=== PATIENT | female | born 1935 | race Caucasian/White ===

== ENCOUNTER 2017-06-30 09:36 | Emergency (ER) | payer MEDICARE ==
[2017-06-30 10:27] VITALS: BP 153/52
--- NOTE | 2017-06-30 10:37 | UC ---
Respiratory Complaint HPI - HPI Summary HPI Summary: Pt c/o nasal congestion, PND and cough X 1 day. Pt is concerned that she has bronchitis. - History of Current Complaint Chief Complaint: UCRespiratory Stated Complaint: SINUS COMPLAINT Time Seen by Provider: 06/30/17 10:17 Hx Obtained From: Patient ?: No Onset/Duration: Sudden Onset, Lasting Days - 1, Still Present Timing: Intermittent Episodes Severity Initially: Mild Severity Currently: Mild Character: Cough: Productive - white Aggravating Factors: Deep Breaths, Recumbent Position Alleviating Factors: Nothing Associated Signs And Symptoms: Positive: URI, Nasal Congestion - Risk Factors Pulmonary Embolism Risk Factors: Negative Cardiac Risk Factors: Negative Pseudomonas Risk Factors: Negative Tuberculosis Risk Factors: Negative - Allergies/Home Medications Allergies/Adverse Reactions: Allergies Allergy/AdvReac Type Severity Reaction Status Date / Time Sulfa Antibiotics Allergy Unknown Verified 06/30/17 10:22 Reaction Details Home Medications: Home Medications Amiodarone HCl 1 - 2 tab PO DAILY 06/30/17 [History Confirmed 06/30/17] PMH/Surg Hx/FS Hx/Imm Hx Previously Healthy: Yes - Surgical History Surgical History: None - Family History Known Family History: Positive: Cardiac Disease - Social History Occupation: Retired Lives: With Family Alcohol Use: None Substance Use Type: None Smoking Status (MU): Former Smoker Length of Time of Smoking/Using Tobacco: 30 yrs Have You Smoked in the Last Year: No When Did the Patient Quit Smoking/Using Tobacco: 30 yrs ago Review of Systems Constitutional: Negative Skin: Negative Eyes: Negative ENT: Other - PND Respiratory: Cough Cardiovascular: Negative Gastrointestinal: Negative Genitourinary: Negative Motor: Negative Neurovascular: Negative Musculoskeletal: Negative Neurological: Negative Psychological: Negative Is Patient Immunocompromised?: No All Other Systems Reviewed And Are Negative: Yes Physical Exam Triage Information Reviewed: Yes Appearance: Well-Appearing Vital Signs: Initial Vital Signs Temp 97.2 F 06/30/17 10:24 Pulse 60 06/30/17 10:24 Resp 20 06/30/17 10:24 BP 153/52 06/30/17 10:24 Pulse Ox 100 06/30/17 10:24 Vital Signs Reviewed: Yes Eye Exam: Normal ENT Exam: Other ENT: Positive: Nasal congestion Dental Exam: Normal Neck exam: Normal Respiratory Exam: Normal Cardiovascular Exam: Normal Cardiovascular: Positive: Bradycardia - on amiodarone Musculoskeletal Exam: Normal Neurological Exam: Normal Psychological Exam: Normal Skin Exam: Normal UC Diagnostic Evaluation - Laboratory O2 Sat by Pulse Oximetry: 100 Respiratory Course/Dx - Differential Dx/Diagnosis Differential Diagnosis/HQI/PQRI: Bronchitis, Other - URI Provider Diagnoses: Bronchitis Discharge - Discharge Plan Condition: Stable Disposition: HOME Prescriptions: Amoxicillin PO (*) [Amoxicillin 500 MG CAP*] 500 mg PO Q12H #20 cap Patient Education Materials: Acute Bronchitis (ED) Referrals: Taj Vargas MD [Primary Care Provider] - If Needed
== END 2017-06-30 10:46 | disposition home or self-care (01) ==
LOC: UCCORT 09:36
DX: J40 Bronchitis, not specified as acute or chronic (principal)
CPT/HCPCS: 99212; G0463

== ENCOUNTER 2017-07-07 20:29 | Emergency (ER) | payer MEDICARE ==
[2017-07-07 20:49] VITALS: BP 156/57
[2017-07-07] MEDS ORDERED: predniSONE TAB* 10 MG PO ONE ×2 (21:19→21:34)
[2017-07-07] MEDS ORDERED: Albuterol HFA INHALER* 8 gm MDI INH ONE (21:20)
--- NOTE | 2017-07-07 21:20 | UC ---
Respiratory Complaint HPI - HPI Summary HPI Summary: 82 yo female currently on amox for sinusitis now coughing hx bronchitis - History of Current Complaint Chief Complaint: UCRespiratory Stated Complaint: CONGESTION/COUGH Time Seen by Provider: 07/07/17 21:12 Hx Obtained From: Patient Onset/Duration: Gradual Onset, Lasting Days Timing: Constant Severity Initially: Mild Severity Currently: Moderate Pain Intensity: 0 Pain Scale Used: 0-10 Numeric Character: Cough: Nonproductive Aggravating Factors: Exertion, Deep Breaths Alleviating Factors: Nothing Associated Signs And Symptoms: Positive: Nasal Congestion, Sinus Discomfort - Allergies/Home Medications Allergies/Adverse Reactions: Allergies Allergy/AdvReac Type Severity Reaction Status Date / Time Codeine Allergy Insomnia Verified 07/07/17 20:42 Sulfa Antibiotics Allergy Unknown Verified 06/30/17 10:22 Reaction Details Home Medications: Home Medications Apixaban* [Eliquis*] 2.5 mg PO DAILY 07/07/17 [History Confirmed 07/07/17] PMH/Surg Hx/FS Hx/Imm Hx Previously Healthy: Yes Endocrine History: Dyslipidemia Cardiovascular History: Hypertension Respiratory History: Bronchitis - Surgical History Surgical History: None - Family History Known Family History: Positive: Cardiac Disease, Hypertension - Social History Alcohol Use: None Substance Use Type: None Smoking Status (MU): Never Smoked Tobacco Length of Time of Smoking/Using Tobacco: 30 yrs Have You Smoked in the Last Year: Yes When Did the Patient Quit Smoking/Using Tobacco: 30 yrs ago - Immunization History Most Recent Influenza Vaccination: no Review of Systems Constitutional: Negative Skin: Negative Eyes: Negative ENT: Nasal Discharge Respiratory: Cough Cardiovascular: Negative Gastrointestinal: Negative Genitourinary: Negative Motor: Negative Neurovascular: Negative Musculoskeletal: Negative Neurological: Negative Psychological: Negative Is Patient Immunocompromised?: No All Other Systems Reviewed And Are Negative: Yes Physical Exam Triage Information Reviewed: Yes Appearance: Well-Appearing, No Pain Distress, Well-Nourished Vital Signs: Initial Vital Signs Temp 98.4 F 07/07/17 20:45 Pulse 67 07/07/17 20:45 Resp 20 07/07/17 20:45 BP 156/57 07/07/17 20:45 Pulse Ox 97 07/07/17 20:45 Vital Signs Reviewed: Yes Eyes: Positive: Conjunctiva Clear ENT: Positive: Nasal congestion, TMs normal, Uvula midline. Negative: Hearing grossly normal, Muffled voice, Hoarse voice, Sinus tenderness Dental Exam: Other - upper plate Neck: Positive: Supple Respiratory: Positive: No respiratory distress, No accessory muscle use, Wheezing - with forced expiration Cardiovascular: Positive: RRR, No Murmur Musculoskeletal: Positive: ROM Intact, No Edema Neurological: Positive: Alert Psychological Exam: Normal UC Diagnostic Evaluation - Laboratory O2 Sat by Pulse Oximetry: 97 - normal/not hypoxic Respiratory Course/Dx - Differential Dx/Diagnosis Provider Diagnoses: acute sinusitis Discharge - Discharge Plan Condition: Stable Disposition: HOME Prescriptions: predniSONE TAB* [Deltasone TAB*] 10 mg PO DAILY #4 tab Patient Education Materials: How to Use a Metered-Dose Inhaler (ED), Acute Bronchitis (ED) Referrals: Taj Vargas MD [Primary Care Provider] - 5 Days (if nto better) Additional Instructions: continue current meds
== END 2017-07-07 21:39 | disposition home or self-care (01) ==
LOC: UCCORT 20:29
DX: J01.90 Acute sinusitis, unspecified (principal); E78.5 Hyperlipidemia, unspecified; I10 Essential (primary) hypertension; Z88.5 Allergy status to narcotic agent; Z88.2 Allergy status to sulfonamides; Z87.891 Personal history of nicotine dependence
CPT/HCPCS: 99212; A9270-GY; G0463; J7512

== ENCOUNTER 2017-09-29 19:18 | Emergency (ER) | payer MEDICARE ==
[2017-09-29 20:16] VITALS: BP 164/68
--- NOTE | 2017-09-29 20:54 | UC ---
Respiratory Complaint HPI - HPI Summary HPI Summary: Pt here w/ nasal congestion, PND and cough x 3 days. Has sinus pressure with pain around eyes - eyes feel tired, no d/c. Denies fever, chills, N/V/D, chest pain, SOB, rash, ab pain, neck stiffness or weakness. Imms are UTD including pneumonia. She is here as she's concerned about her sx being something more serious. Has been around many people coughing at [facility]. - History of Current Complaint Chief Complaint: UCRespiratory Stated Complaint: SINUS COMPLAINT Time Seen by Provider: 09/29/17 20:30 Hx Obtained From: Patient, Family/[employer]oke [employer] - daughter, granddaughter Pain Intensity: 0 - Allergies/Home Medications Allergies/Adverse Reactions: Allergies Allergy/AdvReac Type Severity Reaction Status Date / Time codeine Allergy Insomnia Verified 09/29/17 20:03 Sulfa (Sulfonamide Allergy Unknown Verified 09/29/17 20:03 Antibiotics) Reaction Details Home Medications: Home Medications Acetaminophen [Pain Reliever] 500 mg PO 09/29/17 [History] predniSONE TAB* [Deltasone TAB*] 5 mg PO DAILY 09/29/17 [History Confirmed 09/29] PMH/Surg Hx/FS Hx/Imm Hx Previously Healthy: Yes Cardiovascular History: Hypertension, Atrial Fibrillation - eliquis and amiodorone - Surgical History Surgical History: None - Family History Known Family History: Positive: Cardiac Disease, Hypertension - Social History Occupation: Retired Lives: Alone Alcohol Use: None Substance Use Type: None Smoking Status (MU): Former Smoker Length of Time of Smoking/Using Tobacco: 30 yrs Have You Smoked in the Last Year: Yes When Did the Patient Quit Smoking/Using Tobacco: 30 yrs ago - Immunization History Most Recent Influenza Vaccination: no Review of Systems Constitutional: Fatigue Skin: Negative Eyes: Negative ENT: Sore Throat, Nasal Discharge Respiratory: Cough Cardiovascular: Negative Gastrointestinal: Negative Genitourinary: Negative Motor: Negative Neurovascular: Negative Musculoskeletal: Negative Neurological: Negative Psychological: Anxious - admits she's anxious, most likely triggering her BP to be elevated - denies sx of headache, chest pain, dizziness, SOB Is Patient Immunocompromised?: No All Other Systems Reviewed And Are Negative: Yes Physical Exam Triage Information Reviewed: Yes Appearance: Well-Appearing, No Pain Distress, Well-Nourished Vital Signs: Initial Vital Signs Temp 97.6 F 09/29/17 20:02 Pulse 62 09/29/17 20:02 Resp 18 09/29/17 20:02 BP 164/68 09/29/17 20:02 Pulse Ox 97 09/29/17 20:02 Vital Signs Reviewed: Yes Eye Exam: Normal Eyes: Positive: Conjunctiva Clear ENT Exam: Normal ENT: Positive: Normal ENT inspection, Hearing grossly normal, Pharynx normal - cobblestoning, Nasal drainage - clear, TMs normal. Negative: Nasal congestion, Tonsillar swelling, Tonsillar exudate, Trismus, Muffled voice, Hoarse voice Neck exam: Normal Neck: Positive: Supple, Nontender, No Lymphadenopathy Respiratory Exam: Normal Respiratory: Positive: Lungs clear, Normal breath sounds. Negative: Crackles, Rhonchi, Stridor, Wheezing Cardiovascular Exam: Normal Cardiovascular: Positive: RRR, Other: - S1/S2, NO A. FIB NOTED Abdominal Exam: Normal Abdomen Description: Positive: Nontender, No Organomegaly, Soft Bowel Sounds: Positive: Present Musculoskeletal Exam: Normal Musculoskeletal: Positive: Strength Intact Neurological Exam: Normal Neurological: Positive: Alert Psychological Exam: Normal Skin Exam: Normal UC Diagnostic Evaluation - Laboratory O2 Sat by Pulse Oximetry: 97 Respiratory Course/Dx - Course Course Of Treatment: FLU (-). cxr w/o acute findings. Discussed potential course of illness - explained she does not need anbx or steroids as she appears well clinically, based on vital signs and testing. SHe admits she's nervous and just wants to feel better. Advised to recheck BP - discussed it's most likely elevated tonight 2ndry to anxiety -no sx reported of concern. Pt has cardiology check this week. Reviewed danger s/sx of when to return or go to ED w/ pt, daughter and granddaughter - all agree w/ plan. Pt is laughing and appears relieved as she leaves. - Differential Dx/Diagnosis Provider Diagnoses: Viral URI w/ PND Discharge - Discharge Plan Condition: Stable Disposition: HOME Patient Education Materials: Upper Respiratory Infection (ED), Postnasal Drip ( DC) Referrals: Taj Vargas MD [Primary Care Provider] - Additional Instructions: You may try saline nasal washes, salt water gargles, tea with honey, throat lozenges, humidification and stay hydrate Avoid smoke, candles, aerosals, etc *If symptoms worse, follow-up with PCP or go to ED
--- NOTE | 2017-09-29 21:14 | RAD ---
INDICATION: Cough. History of smoking COMPARISON: None TECHNIQUE: PA and lateral dual-energy views were obtained. FINDINGS: Bones/Soft Tissues: There are no acute bony findings. 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 Lungs: There are no infiltrates. There is mild interstitial prominence which likely reflects chronic change. Pleura: There are no pleural effusions. Other: None IMPRESSION: NO ACTIVE DISEASE
== END 2017-09-29 21:32 | disposition home or self-care (01) ==
LOC: UCCORT 19:18
DX: J06.9 Acute upper respiratory infection, unspecified (principal); R09.82 Postnasal drip
CPT/HCPCS: 71046; 87502; 99211; G0463

== ENCOUNTER 2017-10-25 09:08 | Emergency (ER) | payer MEDICARE ==
--- OUTSIDE RECORDS SUMMARY | 2017-10-25 09:28 | XMS REPORT ---
:1935 External Reference #:[id number] Author Organization [facility] Address [address], [address] [place] [address] Phone [phone] Care Team Providers Name Role Phone Taj Vargas MD Primary Care Physician Unavailable Payers Type Date Identification Numbers Payment Provider Subscriber Medicare Primary Policy Number: [id number] Medicare Cyndi Spears PayID: [id number] [address] [place] [address] [facility] Policy Number: [id number] [facility] Cyndi Spears PayID: [id number] [address] [place] [address] Problems Date Description Provider Status Onset: 10/22/2012 Aneurysm of thoracic aorta Brennon Smith MD, PhD Active Onset: 10/22/2012 Benign essential hypertension Brennon Smith MD, PhD Active Onset: 10/22/2012 Pure hypercholesterolemia Brennon Smith MD, PhD Active Onset: 10/29/2015 Essential hypertension Gayla Negron MD Active Family History Date Family Member(s) Problem(s) Comments General No known family history of CAD. 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 Independent with all ADL's Cigarette Use 1982 Quit 30 years ago Cigarette Use Pack Years - 10 ETOH Use Denies alcohol use Daily Caffeine Consumes on average 2 cups of regular coffee per day Allergies, Adverse Reactions, Alerts Date Description Reaction Status Severity Comments 10/03/2017 Codeine active 10/03/2017 Sulfa Drugs active 10/22/2012 NKDA inactive Medications Medication Date Status Form Strength Qnty SIG Indications Ordering Provider Lisinopril 10/03/ Active Tablets 10mg 90tabs 1 by mouth Gayla 2018 every day MD Jamil Eliquis 03/28/ Active Tablets 2.5mg 180tab 1 tab by Gayla 2016 s mouth MD Jamil twice daily Amiodarone HCL 01/31/ Active Tablets 200mg 180tab 1 to 2 Viktoriya 2016 s tablets by Simonetta mouth Santana, every day MSN, HEALTH ASSISTANT as directed Pravachol / Active Tablets 40mg 90tabs 1 po qd Unknown 0000 Tylenol Extra / Active Tablets 500mg 1-2 tabs Unknown Strength 0000 by mouth every 4 hours as needed Lisinopril 02/08/ Hx Tablets 10mg 90tabs once daily Gayla 2016 - MD Jamil 2016 Lisinopril 02/08/ Hx Tablets 5mg 90tabs 1 by mouth Gayla 2016 - every day MD Jamil 2017 Lisinopril-Hydr 05/16/ Hx Tablets 10-12.5mg 90tabs take 1 Viktoriya ochlorothiazide 2013 tablet by Simonetta mouth once Santana, daily MSN, HEALTH ASSISTANT Carvedilol 10/22/ Hx Tablets 3.125mg 180tab 1 tab by I10 Viktoriya 2012 s mouth Simonetta twice a Santana, MSN, HEALTH ASSISTANT Lisinopril/Hydr / Hx Tablets 10-12.5mg 90tabs 1 po qd Brennon Soriano ochlorothiazide - MD Luis, 05/16/ PhD 2013 Loratadine / Hx Tablets 10mg 1 tab by Unknown Allergy Relief 0000 Dispers mouth every day as needed allergies Amlodipine / Hx Tablets 5mg 1/2 by Unknown Besylate 0000 mouth every day Amiodarone HCL / Hx Tablets 200mg 93tabs 2 tablets Viktoriya 0000 - a day for Simon01/31/ three days Esther, 2016 and then MSN, HEALTH ASSISTANT go back to 1 tablet per day therafter. Metronidazole / Hx Tablets 500mg 1 by mouth Unknown 0000 three times a day Eliquis / Hx Tablets 2.5mg 1 tab by [place] 0000 - mouth MD Jamil twice 2017 daily Furosemide / Hx Tablets 40mg 1 by mouth Unknown 0000 every day If Needed Vital Signs Date Vital Result Comment 10/03/2017 BP Systolic Sitting Left Arm 142 mmHg BP Diastolic Sitting Left Arm 80 mmHg Heart Rate 60 /min Respiratory Rate 16 /min Height 62 inches 5'2" Weight 118.00 lb BMI (Body Mass Index) 21.6 kg/m2 BSA (Body Surface Area) 1.53 m2 [place] body weight in kilograms 50 03/31/2017 BP Systolic Sitting Left Arm 140 mmHg BP Diastolic Sitting Left Arm 64 mmHg Heart Rate 62 /min Respiratory Rate 16 /min Height 62 inches 5'2" Weight 123.00 lb BMI (Body Mass Index) 22.5 kg/m2 BSA (Body Surface Area) 1.55 m2 [place] body weight in kilograms 50 02/08/2017 BP Systolic Sitting Left Arm 187 mmHg BP Diastolic Sitting Left Arm 64 mmHg 01/26/2017 BP Systolic Sitting Left Arm 132 mmHg BP Diastolic Sitting Left Arm 66 mmHg Heart Rate 68 /min Respiratory Rate 16 /min Height 62 inches 5'2" Weight 129.00 lb BMI (Body Mass Index) 23.6 kg/m2 BSA (Body Surface Area) 1.59 m2 [place] body weight in kilograms 50 01/19/2017 BP Systolic Sitting Right Arm 124 mmHg BP Diastolic Sitting Right Arm 58 mmHg Heart Rate 74 /min Respiratory Rate 16 /min Height 62 inches 5'2" Weight 128.00 lb BMI (Body Mass Index) 23.4 kg/m2 BSA (Body Surface Area) 1.58 m2 [place] body weight in kilograms 50 05/03/2016 BP Systolic Sitting Left Arm 140 mmHg BP Diastolic Sitting Left Arm 76 mmHg Heart Rate 64 /min Respiratory Rate 16 /min Height 62 inches 5'2" Weight 129.00 lb BMI (Body Mass Index) 23.6 kg/m2 BSA (Body Surface Area) 1.59 m2 10/29/2015 BP Systolic Sitting Right Arm 152 mmHg BP Diastolic Sitting Right Arm 68 mmHg Heart Rate 66 /min Respiratory Rate 20 /min Height 62 inches 5'2" Weight 130.00 lb BMI (Body Mass Index) 23.8 kg/m2 BSA (Body Surface Area) 1.59 m2 10/20/2014 BP Systolic Sitting Right Arm 130 mmHg BP Diastolic Sitting Right Arm 64 mmHg Heart Rate 18 /min Respiratory Rate 73 /min Height 62 inches 5'2" Weight 129.00 lb BMI (Body Mass Index) 23.6 kg/m2 BSA (Body Surface Area) 1.59 m2 02/17/2014 BP Systolic Sitting Right Arm 136 mmHg BP Diastolic Sitting Right Arm 64 mmHg Heart Rate 60 /min Respiratory Rate 16 /min Height 62 inches 5'2" Weight 131.00 lb BMI (Body Mass Index) 24.0 kg/m2 BSA (Body Surface Area) 1.60 m2 08/19/2013 BP Systolic Sitting Right Arm 130 mmHg BP Diastolic Sitting Right Arm 62 mmHg Heart Rate 60 /min Respiratory Rate 16 /min Height 62 inches 5'2" Weight 130.00 lb BMI (Body Mass Index) 23.8 kg/m2 BSA (Body Surface Area) 1.59 m2 02/15/2013 BP Systolic Sitting Left Arm 138 mmHg BP Diastolic Sitting Left Arm 68 mmHg Heart Rate 60 /min Respiratory Rate 18 /min Height 62 inches 5'2" Weight 131.00 lb BMI (Body Mass Index) 24.0 kg/m2 BSA (Body Surface Area) 1.60 m2 12/11/2012 BP Systolic Sitting Left Arm 162 mmHg BP Diastolic Sitting Left Arm 70 mmHg Heart Rate 60 /min Respiratory Rate 16 /min Height 62 inches 5'2" Weight 130.00 lb BMI (Body Mass Index) 23.8 kg/m2 BSA (Body Surface Area) 1.59 m2 10/22/2012 BP Systolic Sitting Right Arm 186 mmHg BP Diastolic Sitting Right Arm 70 mmHg BP Systolic Sitting Left Arm 180 mmHg BP Diastolic Sitting Left Arm 84 mmHg Heart Rate 77 /min Respiratory Rate 16 /min Height 62 inches 5'2" Weight 133.00 lb BMI (Body Mass Index) 24.3 kg/m2 Results Test Date Test Result H/L Range Note TSH Reflex FT4 And/Or 10/03/2017 Thyroid Stim Hormone 2.30 uIU/mL 0.30- 4.20 1 FT3 Reflex add FT3? Y 1 Reflex add FT4? Y 1 Magnesium 10/03/2017 Magnesium 1.9 mg/dL 1.8-2.4 1 Reflex add FT3? Y 1 Reflex add FT4? Y 1 CBS W/Automated Diff 10/03/2017 White Blood Count 5.4 K/uL 3.1-10.7 1 Red Blood Count 4.33 M/uL 3.90-5.40 1 Hemoglobin 12.9 gm/dL 11.6-15.8 1 Hematocrit 40.1 % 36.0-46.1 1 Mean Cell Volume 92.6 fl 80.9-99.0 1 Mean Corpuscular HGB 29.8 pg 25.9-32.7 1 Mean Corpuscular HGB Conc 32.2 g/dL 30.8-34.3 1 Platelet Count 214 K/uL 155-360 1 Red Cell Distri Width SD 47.3 fl High 3-47 1 Red Cell Distri Width %CV 14.1 % 11.7-14.4 1 Mean Platelet Volume 9.5 fL 8.9-12.4 1 Neut% 52.1 % 40.4-72.8 1 Lymph % 23.3 % 20.0-42.0 1 [place] % 17.6 % High 4.3-13.2 1 Eo% 6.3 % 0.0-6.6 1 Bas% 0.7 % 0.0-1.1 1 Neut# 2.83 K/uL 1.8-7.0 1 Lymph # 1.27 K/uL 1.0-4.0 1 [place] # 0.96 K/uL High 0.3-0.9 1 Eos # 0.34 K/uL 0.0-0.5 1 Baso # 0.04 K/uL 0.0-0.1 1 LDL Cholesterol Profile 10/03/2017 Cholesterol 190 mg/dL <200 1, 2 Triglycerides 180 mg/dL High <150 1, 3 HDL Cholesterol 46 mg/dL >40 1, 4 LDL-Cholesterol 108 mg/dL < 100 1, 5 Reflex add FT3? Y 1 Reflex add FT4? Y 1 Comprehensive Metabolic Panel 10/03/2017 Glucose 101 mg/dL 74-106 1 BUN 25 mg/dL High 7-18 1 Creatinine 1.4 mg/dL High 0.6-1.3 1 Glom Filtration Rate, Estimate 38 mL/min >60 1 If 46 mL/min >60 1, 6 BUN/Creat 17.8 ratio 1 Sodium 139 mmol/L 136-145 1 Potassium 4.7 mmol/L 3.5-5.1 1 Chloride 107 mmol/L 98-107 1 Carbon Dioxide 23 mmol/L 21-32 1 Anion Gap 9 mEq/L 8-16 1 Calcium 9.2 mg/dL 8.5-10.1 1 Total Protein 8.6 g/dL High 6.4-8.2 1 Albumin 3.9 g/dL 3.4-5.0 1 Globulin 4.7 g/dL High 1.9-4.3 1 Alb/Glob 0.8 ratio 1 Bilirubin,Total 0.5 mg/dL 0.2-1.0 1 Sgot/Ast 27 U/L 15-37 1 SGPT/Alt 24 U/L 12-78 1 Alkaline Phosphatase 91 U/L 45-117 1 Reflex add FT3? Y 1 Reflex add FT4? Y 1 MCHC RBC Auto-mCnc 01/09/2017 MCHC RBC Auto-mCnc 32.8 30.8-34.3 MCV RBC Auto 01/09/2017 MCV RBC Auto 92.3 80.9-99.0 Monocytes # Bld Auto 01/09/2017 Monocytes # Bld Auto 0.93 High 0.3-0.9 Monocytes/leuk NFr 01/09/2017 Monocytes/leuk NFr 12.6 4.3-13.2 Bld Auto Bld Auto Neutrophils # Bld 01/09/2017 Neutrophils # Bld 4.86 1.8-7.0 Auto Auto Neutrophils/leuk NFr 01/09/2017 Neutrophils/leuk NFr 65.7 40.4-72.8 Bld Auto Bld Auto PMV Bld Auto 01/09/2017 PMV Bld Auto 9.8 8.9-12.4 Platelets [#/volume] 01/09/2017 Platelets [#/volume] 218 150-400 in Blood by Automated in Blood by count Automated count Potassium SerPl-sCnc 01/09/2017 Potassium SerPl-sCnc 3.9 3.5-5.1 RBC # Bld Auto 01/09/2017 RBC # Bld Auto 3.37 Low 3.90-5.40 RDW RBC Auto 01/09/2017 RDW RBC Auto 43.2 3-47 RDW RBC Auto-Rto 01/09/2017 RDW RBC Auto-Rto 13.4 11.7-14.4 Sodium SerPl-sCnc 01/09/2017 Sodium SerPl-sCnc 141 136-145 Unloinc 01/09/2017 Unloinc See Note 7 WBC # Bld Auto 01/09/2017 WBC # Bld Auto 7.4 3.1-10.7 Laboratory test 01/09/2017 Act Partial Thrombo 78.1 seconds High 23.4- 35.0 8, 9 finding Time Basic Metabolic Panel 01/09/2017 Glucose 130 mg/dL High 74-106 8 BUN 5 mg/dL Low 7-18 8 Creatinine 1.0 mg/dL 0.6-1.3 8 Glom Filtration Rate, Estimate 57 mL/min >60 8 If >60 mL/min >60 8, 10 BUN/Creat 5.0 ratio 8 Sodium 141 mmol/L 136-145 8 Potassium 3.9 mmol/L 3.5-5.1 8 Chloride 107 mmol/L 98-107 8 Carbon Dioxide 27 mmol/L 21-32 8 Anion Gap 7 mEq/L Low 8-16 8 Calcium 8.1 mg/dL Low 8.5-10.1 8 CBS W/Automated Diff 01/09/2017 White Blood Count 7.4 K/uL 3.1-10.7 8 Red Blood Count 3.37 M/uL Low 3.90-5.40 8 Hemoglobin 10.2 gm/dL Low 11.6-15.8 8 Hematocrit 31.1 % Low 36.0-46.1 8 Mean Cell Volume 92.3 fl 80.9-99.0 8 Mean Corpuscular HGB 30.3 pg 25.9-32.7 8 Mean Corpuscular HGB Conc 32.8 g/dL 30.8-34.3 8 Platelet Count 218 K/uL 150-400 8 Red Cell Distri Width SD 43.2 fl 3-47 8 Red Cell Distri Width %CV 13.4 % 11.7-14.4 8 Mean Platelet Volume 9.8 fL 8.9-12.4 8 Neut% 65.7 % 40.4-72.8 8 Lymph % 16.4 % Low 20.0-42.0 8 [place] % 12.6 % 4.3-13.2 8 Eo% 5.0 % 0.0-6.6 8 Bas% 0.3 % 0.0-1.1 8 Neut# 4.86 K/uL 1.8-7.0 8 Lymph # 1.21 K/uL 1.0-4.0 8 [place] # 0.93 K/uL High 0.3-0.9 8 Eos # 0.37 K/uL 0.0-0.5 8 Baso # 0.02 K/uL 0.0-0.1 8 Laboratory test 01/09/2017 Slide Review (SEE NOTE) 8, 11 finding Anion Gap SerPl-sCnc 01/09/2017 Anion Gap SerPl-sCnc 7 Low 8-16 BUN SerPl-mCnc 01/09/2017 BUN SerPl-mCnc 5 7-18 BUN/Creat SerPl 01/09/2017 BUN/Creat SerPl 5.0 Basophils [#/volume] 01/09/2017 Basophils [#/volume] 0.02 0.0-0.1 in Blood by Automated in Blood by count Automated count Basophils/leuk NFr 01/09/2017 Basophils/leuk NFr 0.3 0.0-1.1 Bld Auto Bld Auto Co2 SerPl-sCnc 01/09/2017 Co2 SerPl-sCnc 27 21-32 Calcium SerPl-mCnc 01/09/2017 Calcium SerPl-mCnc 8.1 Low 8.5-10.1 MCH RBC Qn Auto 01/09/2017 MCH RBC Qn Auto 30.3 25.9-32.7 Lymphocytes/leuk NFr 01/09/2017 Lymphocytes/leuk NFr 16.4 Low 20.0-42.0 Bld Auto Bld Auto Lymphocytes 01/09/2017 Lymphocytes 1.21 1.0-4.0 [#/volume] in Blood [#/volume] in Blood by Automated count by Automated count Hgb Bld-mCnc 01/09/2017 Hgb Bld-mCnc 10.2 Low 11.6-15.8 Hct VFr Bld Auto 01/09/2017 Hct VFr Bld Auto 31.1 Low 36.0-46.1 Glucose [Mass/volume] 01/09/2017 Glucose 130 High 74-106 in Serum or Plasma [Mass/volume] in Serum or Plasma GFR/Bsa pred.non 01/09/2017 GFR/Bsa pred.non 57 >60 black SerPl black SerPl MDRD-ArVRat MDRD-ArVRat Chloride SerPl-sCnc 01/09/2017 Chloride SerPl-sCnc 107 98-107 Creat SerPl-mCnc 01/09/2017 Creat SerPl-mCnc 1.0 0.6-1.3 Eosinophil # Bld Auto 01/09/2017 Eosinophil # Bld 0.37 0.0-0.5 Auto Eosinophil/leuk NFr 01/09/2017 Eosinophil/leuk NFr 5.0 0.0-6.6 Bld Auto Bld Auto Laboratory test 01/08/2017 Act Partial Thrombo 85.3 seconds High 23.4- 35.0 8 finding Time Laboratory test 01/08/2017 Act Partial Thrombo 61.3 seconds High 23.4- 35.0 8, 12 finding Time CBS W/Automated Diff 01/08/2017 White Blood Count 8.5 K/uL 3.1-10.7 8 Red Blood Count 2.95 M/uL Low 3.90-5.40 8 Hemoglobin 9.0 gm/dL Low 11.6-15.8 8 Hematocrit 27.7 % Low 36.0-46.1 8 Mean Cell Volume 93.9 fl 80.9-99.0 8 Mean Corpuscular HGB 30.5 pg 25.9-32.7 8 Mean Corpuscular HGB Conc 32.5 g/dL 30.8-34.3 8 Platelet Count 183 K/uL 150-400 8 Red Cell Distri Width SD 44.7 fl 3-47 8 Red Cell Distri Width %CV 13.5 % 11.7-14.4 8 Mean Platelet Volume 10.4 fL 8.9-12.4 8 Neut% 71.5 % 40.4-72.8 8 Lymph % 14.4 % Low 20.0-42.0 8 [place] % 9.4 % 4.3-13.2 8 Eo% 4.5 % 0.0-6.6 8 Bas% 0.2 % 0.0-1.1 8 Neut# 6.05 K/uL 1.8-7.0 8 Lymph # 1.22 K/uL 1.0-4.0 8 [place] # 0.80 K/uL 0.3-0.9 8 Eos # 0.38 K/uL 0.0-0.5 8 Baso # 0.02 K/uL 0.0-0.1 8 Basic Metabolic Panel 01/08/2017 Glucose 101 mg/dL 74-106 8 BUN 4 mg/dL Low 7-18 8 Creatinine 1.0 mg/dL 0.6-1.3 8 Glom Filtration Rate, Estimate 57 mL/min >60 8 If >60 mL/min >60 8, 13 BUN/Creat 4.0 ratio 8 Sodium 145 mmol/L 136-145 8 Potassium 3.8 mmol/L 3.5-5.1 8 Chloride 114 mmol/L High 98-107 8 Carbon Dioxide 25 mmol/L 21-32 8 Anion Gap 6 mEq/L Low 8-16 8 Calcium 8.0 mg/dL Low 8.5-10.1 8 Laboratory test 01/08/2017 Act Partial > 150.0 High 23.4-35.0 8, 14 finding Thrombo Time seconds Laboratory test 01/08/2017 Legionella Negative Negative 8, 15 finding Antigen,Urine Laboratory test 01/07/2017 Act Partial 143.6 seconds High 23.4-35.0 8, 16 finding Thrombo Time CBC 01/07/2017 White Blood Count 11.5 K/uL High 3.1-10.7 8 Red Blood Count 3.30 M/uL Low 3.90-5.40 8 Hemoglobin 10.2 gm/dL Low 11.6-15.8 8 Hematocrit 31.3 % Low 36.0-46.1 8 Mean Cell Volume 94.8 fl 80.9-99.0 8 Mean Corpuscular HGB 30.9 pg 25.9-32.7 8 Mean Corpuscular HGB Conc 32.6 g/dL 30.8-34.3 8 Platelet Count 193 K/uL 150-400 8 Red Cell Distri Width %CV 13.6 % 11.7-14.4 8 Mean Platelet Volume 10.8 fL 8.9-12.4 8 Protime 01/07/2017 Protime 16.3 seconds High 12.0-14.4 8 Inr 1.3 High 0.9-1.1 8, 17 Laboratory test 01/07/2017 Act Partial Thrombo 32.2 seconds 23.4-35.0 8 , 18 finding Time Prothrombin time 01/07/2017 Prothrombin time 16.3 High 12.0-14.4 Aot Request 01/07/2017 Aot Request Test(s) added 8, 19 Tests to be added: pro-BNP 8 * Miscellaneous studies 01/07/2017 * Miscellaneous studies Test(s) added (set) (set) CBC 01/07/2017 White Blood Count 10.1 K/uL 3.1-10.7 8 Red Blood Count 3.30 M/uL Low 3.90-5.40 8 Hemoglobin 10.0 gm/dL Low 11.6-15.8 8 Hematocrit 31.5 % Low 36.0-46.1 8 Mean Cell Volume 95.5 fl 80.9-99.0 8 Mean Corpuscular HGB 30.3 pg 25.9-32.7 8 Mean Corpuscular HGB Conc 31.7 g/dL 30.8-34.3 8 Platelet Count 174 K/uL 150-400 8 Red Cell Distri Width %CV 13.6 % 11.7-14.4 8 Mean Platelet Volume 10.7 fL 8.9-12.4 8 Basic Metabolic Panel 01/07/2017 Glucose 104 mg/dL 74-106 8 BUN 6 mg/dL Low 7-18 8 Creatinine 0.9 mg/dL 0.6-1.3 8 Glom Filtration Rate, Estimate >60 mL/min >60 8 If >60 mL/min >60 8, 20 BUN/Creat 6.6 ratio 8 Sodium 147 mmol/L High 136-145 8 Potassium 3.4 mmol/L Low 3.5-5.1 8 Chloride 118 mmol/L High 98-107 8 Carbon Dioxide 20 mmol/L Low 21-32 8 Anion Gap 9 mEq/L 8-16 8 Calcium 8.8 mg/dL 8.5-10.1 8 Laboratory test finding 01/07/2017 Magnesium 1.9 mg/dL 1.8-2.4 8 Laboratory test finding 01/07/2017 NT-proBNP 6514.0 pg/mL High <450 8 Serum or plasma 01/07/2017 Serum or plasma 6514.0 High <450 natriuretic peptide B natriuretic peptide B prohormone N prohormone N-terminal measurement (mass/volume) CBC 01/06/2017 White Blood Count 12.6 K/uL High 3.1-10.7 8 Red Blood Count 3.15 M/uL Low 3.90-5.40 8 Hemoglobin 9.7 gm/dL Low 11.6-15.8 8 Hematocrit 30.2 % Low 36.0-46.1 8 Mean Cell Volume 95.9 fl 80.9-99.0 8 Mean Corpuscular HGB 30.8 pg 25.9-32.7 8 Mean Corpuscular HGB Conc 32.1 g/dL 30.8-34.3 8 Platelet Count 142 K/uL Low 150-400 8 Red Cell Distri Width %CV 13.5 % 11.7-14.4 8 Mean Platelet Volume 10.5 fL 8.9-12.4 8 Basic Metabolic Panel 01/06/2017 Glucose 94 mg/dL 74-106 8 BUN 12 mg/dL 7-18 8 Creatinine 1.0 mg/dL 0.6-1.3 8 Glom Filtration Rate, Estimate 57 mL/min >60 8 If >60 mL/min >60 8, 21 BUN/Creat 12.0 ratio 8 Sodium 144 mmol/L 136-145 8 Potassium 3.4 mmol/L Low 3.5-5.1 8 Chloride 115 mmol/L High 98-107 8 Carbon Dioxide 20 mmol/L Low 21-32 8 Anion Gap 9 mEq/L 8-16 8 Calcium 7.6 mg/dL Low 8.5-10.1 8 Reflex add FT3? Y 8 Reflex add FT4? Y 8 Magnesium 01/06/2017 Magnesium 1.7 mg/dL Low 1.8-2.4 8 Reflex add FT3? Y 8 Reflex add FT4? Y 8 TSH Reflex FT4 And/Or FT3 01/06/2017 Thyroid Stim Hormone 0.98 uIU/mL 0.30-4.20 8 Reflex add FT3? Y 8 Reflex add FT4? Y 8 TSH SerPl-aCnc 01/06/2017 TSH SerPl-aCnc 0.98 0.30-4.20 Stool Culture 01/06/2017 Stool Culture NO ENTERIC PATHO <SEE NOTE> . ................ <SEE NOTE> 8, 23 Note: INCLUDES TESTING <SEE NOTE> 8, 24 . PLESIOMONAS, CAM <SEE NOTE> 8, 25 . ................ <SEE NOTE> 8, 26 . YERSINIA AND VIB <SEE NOTE> 8, 27 . SHOULD BE REQUES <SEE NOTE> 8, 28 Shiga Toxin 1 Antigen Test not perform <SEE NOTE> 8, 29 Shiga Toxin 2 Antigen Test not perform <SEE NOTE> 8, 30 Stool bacteria 01/06/2017 Stool bacteria Organism: No identification by identification by Enteric Pathogens culture culture Isolated Urobilinogen Ur 01/05/2017 Urobilinogen Ur 0.2 0.2-1.0 Strip-aCnc Strip-aCnc pH Ur Strip.auto 01/05/2017 pH Ur Strip.auto 5.5 Low 6.5-7.5 Lactic Acid 01/05/2017 Lactic Acid 1.9 mmol/L 0.4-1.9 8 Lab Reflex >2.0 for Sepsis? Y 8 Blood Culture 01/05/2017 Blood Culture Aerobic NO GROWTH: FINAL <SEE 8, 31 NOTE> Blood Culture Anaerobic NO GROWTH: FINAL <SEE NOTE> 8, 32 Anaerobic blood 01/05/2017 Anaerobic blood No Growth: Final culture culture Report Bacteria Bld Aerobe 01/05/2017 Bacteria Bld Aerobe No Growth: Final Cult Cult Report Laboratory test 01/05/2017 Troponin-I 0.041 ng/mL 8, 33 finding Laboratory test 01/05/2017 C. Difficile Toxin NEGATIVE FOR C. 8, 34 finding A/B <SEE NOTE> Lactate 01/05/2017 Lactate 1.3 0.4-1.9 [Moles/volume] in [Moles/volume] in Serum or Plasma Serum or Plasma Lactic Acid 01/05/2017 Lactic Acid 1.3 mmol/L 0.4-1.9 8 Lab Reflex >2.0 for Sepsis? Y 8 Lactic Acid 01/05/2017 Lactic Acid 2.5 mmol/L High 0.4-1.9 8 Lab Reflex >2.0 for Sepsis? Y 8 Laboratory test finding 01/05/2017 Troponin-I 0.036 ng/mL 8, 35 Lactic Acid 01/05/2017 Lactic Acid 2.5 mmol/L High 0.4-1.9 8 Lab Reflex >2.0 for Sepsis? Y 8 Ua Routine 01/05/2017 Urine Color YELLOW Yellow 8 Urine Clarity CLEAR Clear 8 Urine Glucose - Dipstick NEGATIVE mg/dL Negative 8 Urine Bilirubin - Dipstick NEGATIVE Negative 8 Urine Ketone NEGATIVE mg/dL Negative 8 Urine Specific [place] <=1.005 Low 1.010-1.030 8 Urine Blood MODERATE Negative 8 Urine PH 5.5 Low 6.5-7.5 8 Urine Protein - Dipstick NEGATIVE mg/dL Negative 8 Urine Urobilinogen - Dipstick 0.2 E.U./dL 0.2-1.0 8 Urine Nitrite - Dipstick NEGATIVE Negative 8 Urine Leuk Esterase MODERATE Negative 8 Urine RBC 2-5 rbc/hpf 0-2 8 Urine WBC 0-2 wbc/hpf 0-7 8 Urine Epithelial Cells FEW /lpf None Seen 8 Urine Uric Acid Crystals FEW None Seen 8 Urine Bacteria VERY FEW None Seen 8 Urine Amorph Sediment VERY FEW Negative 8 Source: URINE, CLEAN CAT <SEE NOTE> 8, 36 Amorphous sediment 01/05/2017 Amorphous sediment Very Few Negative [Presence] in Urine [Presence] in Urine sediment by sediment by Light microscopy Bacteria [Presence] 01/05/2017 Bacteria [Presence] Very Few None Seen in Urine sediment by in Urine sediment Light colby by Light microscopy Bilirub Ur Ql 01/05/2017 Bilirub Ur Ql Negative Negative Strip.auto Strip.auto Color Ur 01/05/2017 Color Ur Yellow Yellow Epithelial cells 01/05/2017 Epithelial cells Few None Seen [Presence] in Urine [Presence] in Urine sediment by L sediment by Light microscopy Ketones Ur 01/05/2017 Ketones Ur Negative Negative Strip.auto-mCnc Strip.auto-mCnc Leukocyte esterase 01/05/2017 Leukocyte esterase Moderate High Negative Ur Ql Strip.auto Ur Ql Strip.auto Urine hemoglobin 01/05/2017 Urine hemoglobin Moderate High Negative detection by detection by automated test strip automated test strip Urine glucose 01/05/2017 Urine glucose Negative Negative measurement by measurement by automated test strip automated test strip (mass/volume) Urine appearance 01/05/2017 Urine appearance Clear Clear determination determination Uric acid crystals 01/05/2017 Uric acid crystals Few None Seen detection in urine detection in urine sediment by sediment by light microscopy Prot Ur 01/05/2017 Prot Ur Negative Negative Strip.auto-mCnc Strip.auto-mCnc Nitrite Ur Ql 01/05/2017 Nitrite Ur Ql Negative Negative Strip.auto Strip.auto Stool Culture 01/04/2017 Stool Culture NO ENTERIC 8, 37 PATHO <SEE NOTE> . ................ <SEE NOTE> 8, 38 Note: INCLUDES TESTING <SEE NOTE> 8, 39 . PLESIOMONAS, CAM <SEE NOTE> 8, 40 . ................ <SEE NOTE> 8, 41 . YERSINIA AND VIB <SEE NOTE> 8, 42 . SHOULD BE REQUES <SEE NOTE> 8, 43 Shiga Toxin 1 Antigen SHIGA TOXIN 1 NO <SEE NOTE> 8, 44 Shiga Toxin 2 Antigen SHIGA TOXIN 2 NO <SEE NOTE> 8, 45 Escherichia coli 01/04/2017 Escherichia coli Shiga Toxin 1 Shiga-like toxin 1 Shiga-like toxin 1 Not Detected detection detection Escherichia coli 01/04/2017 Escherichia coli See Note 46 Shiga-like toxin 2 Shiga-like toxin 2 detection detection Stool leukocytes 01/04/2017 Stool leukocytes None Seen detection by light detection by light microscopy microscopy Stool occult blood 01/04/2017 Stool occult blood Negative Negative Total Cells Counted 01/04/2017 Total Cells Counted 100 Bld Bld Prot SerPl-mCnc 01/04/2017 Prot SerPl-mCnc 7.8 6.4-8.2 Neuts Seg/leuk NFr Bld 01/04/2017 Neuts Seg/leuk NFr Bld 85 High 33-73 Manual Manual Unloinc 01/04/2017 Unloinc Stool Alp SerPl-cCnc 01/04/2017 Alp SerPl-cCnc 70 45-117 Alt SerPl-cCnc 01/04/2017 Alt SerPl-cCnc 15 12-78 Albumin SerPl-mCnc 01/04/2017 Albumin SerPl-mCnc 3.9 3.4-5.0 Albumin/Glob SerPl 01/04/2017 Albumin/Glob SerPl 1.0 Aspartate 01/04/2017 Aspartate 13 Low 15-37 aminotransferase aminotransferase [Enzymatic [Enzymatic activity/vol activity/volume] in Serum or Plasma Bilirub SerPl-mCnc 01/04/2017 Bilirub SerPl-mCnc 0.6 0.2-1.0 Blood anisocytosis 01/04/2017 Blood anisocytosis 1+ detection by light detection by light microscopy microscopy Blood platelet 01/04/2017 Blood platelet Normal adequacy detection by adequacy detection by light microsc light microscopy Eosinophil % 01/04/2017 Eosinophil % 1 0-5 Globulin Ser Calc-mCnc 01/04/2017 Globulin Ser Calc-mCnc 3.9 1.9-4.3 Lipase SerPl-cCnc 01/04/2017 Lipase SerPl-cCnc 350 73-393 Neuts Band/leuk NFr 01/04/2017 Neuts Band/leuk NFr 5 0-8 Bld Manual Bld Manual Monocytes/100 01/04/2017 Monocytes/100 6 0-10 leukocytes in Blood by leukocytes in Blood by Manual count Manual count Lymphocytes/100 01/04/2017 Lymphocytes/100 3 Low 20-42 leukocytes in Blood by leukocytes in Blood by Manual coun Manual count LDL Cholesterol 10/30/2014 Cholesterol 142 mg/dL < 200 47 Profile Triglycerides 156 mg/dL < 150 48 HDL Cholesterol 48 mg/dL > 40 49 LDL-Cholesterol 63 mg/dL < 100 50 Liver Function Tests 10/30/2014 Total Protein 7.5 g/dL 6.4-8.2 Albumin 3.6 g/dL 3.4-5.0 Globulin 3.9 g/dL 1.9-4.3 Alb/Glob 0.9 ratio Bilirubin,Total 0.3 mg/dL 0.2-1.0 Bilirubin,Direct 0.1 mg/dL 0.0-0.2 Bilirubin,Indirect 0.2 mg/dL 0.0-0.9 Sgot/Ast 13 U/L Low 15-37 51 SGPT/Alt 15 U/L 12-78 Alkaline Phosphatase 73 U/L 45-117 Basic Metabolic Panel 10/30/2014 Glucose 93 mg/dL 74-106 BUN 25 mg/dL High 7-18 Creatinine 1.1 mg/dL 0.6-1.3 Glom Filtration Rate, Estimate 51 mL/min >60 If >60 mL/min >60 52 BUN/Creat 22.7 ratio Sodium 141 mmol/L 136-145 Potassium 4.3 mmol/L 3.5-5.1 Chloride 106 mmol/L 98-107 Carbon Dioxide 29 mmol/L 21-32 Anion Gap 6 mEq/L Low 8-16 Calcium 9.4 mg/dL 8.5-10.1 CBC W/Automated Diff 10/30/2014 White Blood Count 7.2 K/uL 3.1-10.7 Red Blood Count 3.79 M/uL Low 3.90-5.40 Hemoglobin 11.6 gm/dL 11.6-15.8 Hematocrit 36.6 % 36.0-46.1 Mean Cell Volume 96.6 fl 80.9-99.0 Mean Corpuscular HGB 30.6 pg 25.9-32.7 Mean Corpuscular HGB Conc 31.7 g/dL 30.8-34.3 Platelet Count 286 K/uL 155-360 Red Cell Distri Width SD 44.5 fl 3-47 Red Cell Distri Width %CV 13.1 % 11.7-14.4 Mean Platelet Volume 9.3 fL 8.9-12.4 Neut% 67.0 % 40.4-72.8 Lymph % 17.8 % 17.0-46.1 [place] % 10.9 % 4.3-13.2 Eo% 3.9 % 0.0-6.6 Bas% 0.4 % 0.0-1.1 Neut# 4.79 K/uL 1.0-7.0 Lymph # 1.27 K/uL Low 1.8-7.0 [place] # 0.78 K/uL 0.3-0.9 Eos # 0.28 K/uL 0.0-0.5 Baso # 0.03 K/uL 0.0-0.1 Laboratory test finding 10/30/2014 Thyroid Stim 1.34 uIU/mL 0.36-3.74 Hormone Laboratory test finding 08/13/2013 Microalbumin,Random 20.2 mg/L High 0.0- 18.5 Urine Comprehensive Metabolic 08/13/2013 Glucose 104 mg/dL 76-115 Panel BUN 20 mg/dL 5-23 Creatinine 1.1 mg/dL 0.5-1.4 Glom Filtration Rate, Estimate 51 mL/min >60 If >60 mL/min >60 53 BUN/Creat 18.1 ratio Sodium 138 mmol/L 136-145 Potassium 4.1 mmol/L 3.5-5.1 Chloride 105 mmol/L 98-107 Carbon Dioxide 29 mEq/L 18-29 Anion Gap 8 mEq/L 8-16 Calcium 9.6 mg/dL 8.5-10.1 Total Protein 7.8 g/dL 6.3-8.0 Albumin 3.9 g/dL 3.5-5.0 Globulin 3.9 g/dL 1.9-4.3 Alb/Glob 1.0 ratio Bilirubin,Total 0.4 mg/dL 0.2-1.2 Sgot/Ast 6 U/L Low 16-40 SGPT/Alt 14 U/L Low 30-65 Alkaline Phosphatase 85 U/L 50-136 LDL Cholesterol Profile 08/13/2013 Cholesterol 167 mg/dL 120-200 Triglycerides 123 mg/dL 16-231 HDL Cholesterol 57 mg/dL 29-83 LDL-Cholesterol 85 mg/dL 62-185 Laboratory test 08/13/2013 C-Reactive 17.20 mg/L High 0.00-3.00 54 finding Protein,Cardiac CBC 08/13/2013 White Blood Count 7.1 K/uL 3.1-10.7 Red Blood Count 3.99 M/uL 3.90-5.40 Hemoglobin 11.9 gm/dL 11.6-15.8 Hematocrit 37.6 % 36.0-46.1 Mean Cell Volume 94.2 fl 80.9-99.0 Mean Corpuscular HGB 29.8 pg 25.9-32.7 Mean Corpuscular HGB Conc 31.6 g/dL 30.8-34.3 Platelet Count 271 K/uL 155-360 Red Cell Distri Width %CV 13.7 % 11.7-14.4 Mean Platelet Volume 10.1 fL 8.9-12.4 Liver Function Tests 10/29/2012 Total Protein 8.2 g/dL High 6.3-8.0 Albumin 4.0 g/dL 3.5-5.0 Globulin 4.2 g/dL 1.9-4.3 Alb/Glob 1.0 ratio Bilirubin,Total 0.4 mg/dL 0.2-1.2 Bilirubin,Direct < 0.1 mg/dL Low 0.1-0.4 Bilirubin,Indirect 0.3 mg/dL 0.0-0.9 Sgot/Ast 10 U/L Low 16-40 SGPT/Alt 12 U/L Low 30-65 Alkaline Phosphatase 82 U/L 50-136 LDL Cholesterol Profile 10/29/2012 Cholesterol 175 mg/dL 120-200 Triglycerides 187 mg/dL 16-231 HDL Cholesterol 44 mg/dL 29-83 LDL-Cholesterol 94 mg/dL 62-185 1 I48.0 2 Reference Guidelines*: Desirable: ........... < 200 mg/dL Borderline High: ..... 200-239 mg/dL High: ................ >=240 mg/dL * The National Cholesterol Education Program (NCEP) 3 Reference Guidelines*: Normal: ............. < 150 mg/dL Borderline High: .... 150-199 mg/dL High: ............... 200-499 mg/dL Very High: .......... > 500 mg/dL * Source: National Cholesterol Education Program (NCEP) 4 Reference Guidelines*: Low HDL: ..... < 40 mg/dL Normal: ..... 40-60 mg/dL Desirable: ... > 60 mg/dL *The National Cholesterol Education Program(NCEP) 5 Reference Guidelines*: Optimal:........... <100 mg/dL Near Optimal....... 100-129 mg/dL Borderline High.... 130-159 mg/dL High............... 160-189 mg/dL Very High.......... >=190 mg/dL * Source: National Cholesterol Education Program (NCEP) 6 Note: Persistent reduction for 3 months or more in an eGFR <60 mL/min/1.73 m2 defines CKD. Patients with eGFR values >/=60 mL/min/1.73 m2 may also have CKD if evidence of persistent proteinuria is present. The original MDRD equation for estimated GFR is not valid for patients less than 18 years of age. Additional information may be found at [email or web address]. 7 Instrument flagged sample for slide review. Less than 10% Bands seen, no other immature WBC's seen. RBC morphology essentially normal. Platelet estimate= Normal 8 ACUTE COLITIS 9 Is patient on heparin protocol? Y Is patient on anticoagulants? Heparin 10 Note: Persistent reduction for 3 months or more in an eGFR <60 mL/min/1.73 m2 defines CKD. Patients with eGFR values >/=60 mL/min/1.73 m2 may also have CKD if evidence of persistent proteinuria is present. The original MDRD equation for estimated GFR is not valid for patients less than 18 years of age. Additional information may be found at [email or web address]. 11 Instrument flagged sample for slide review. Less than 10% Bands seen, no other immature WBC's seen. RBC morphology essentially normal. Platelet estimate=Normal 12 Is patient on heparin protocol? Y Is patient on anticoagulants? Heparin 13 Note: Persistent reduction for 3 months or more in an eGFR <60 mL/min/1.73 m2 defines CKD. Patients with eGFR values >/=60 mL/min/1.73 m2 may also have CKD if evidence of persistent proteinuria is present. The original MDRD equation for estimated GFR is not valid for patients less than 18 years of age. Additional information may be found at [email or web address]. 14 CHECKED CALLED APTT TO DANIE Nguyen RN AT [phone] 01/08/17 by [email or web address] Is patient on heparin protocol? Y OK To Combine Draws Per RN 15 Presumptive negative for L. pneumophila serogroup 1 antigen in urine, suggesting no recent or current infection. Legionnaires' disease cannot be ruled out since other serogroups and species may also cause disease. Performed at: [address] [id number] Outpatient Coding Specialist: Paramjit Billy MD, Phone: [phone] 16 Is patient on heparin protocol? Y Is patient on anticoagulants? Heparin CALLED PTT TO NAYA Stoll AT 0026 01/08/17 by [email or web address] 17 THERAPEUTIC INR RANGE: 2.0 - 3.0 DVT, Pulmonary embolus, prophylaxis against venous thrombosis or systemic embolization in high risk patients. 2.5 - 3.5 Mechanical heart valves 18 Is patient on heparin protocol? Y Is patient on anticoagulants? Heparin 19 Tests: pro-BNP Instructions: 20 Note: Persistent reduction for 3 months or more in an eGFR <60 mL/min/1.73 m2 defines CKD. Patients with eGFR values >/=60 mL/min/1.73 m2 may also have CKD if evidence of persistent proteinuria is present. The original MDRD equation for estimated GFR is not valid for patients less than 18 years of age. Additional information may be found at [email or web address]. 21 Note: Persistent reduction for 3 months or more in an eGFR <60 mL/min/1.73 m2 defines CKD. Patients with eGFR values >/=60 mL/min/1.73 m2 may also have CKD if evidence of persistent proteinuria is present. The original MDRD equation for estimated GFR is not valid for patients less than 18 years of age. Additional information may be found at [email or web address]. 22 NO ENTERIC PATHOGENS ISOLATED 23 ................................................... 24 INCLUDES TESTING FOR SALMONELLA, SHIGELLA, AEROMONAS, 25 PLESIOMONAS, CAMPYLOBACTER, AND E. COLI 0157:H7 26 ................................................... 27 YERSINIA AND VIBRIO ARE NOT ROUTINELY SCREENED FOR AND 28 SHOULD BE REQUESTED SEPARATELY SCANT ENTERIC LJ 29 Test not performed INSUFFICENT GROWTH TO PERFORM TESTING 30 Test not performed INSUFFICENT GROWTH TO PERFORM TESTING 31 NO GROWTH: FINAL REPORT 32 NO GROWTH: FINAL REPORT 33 0.0 - 0.045 ng/mL: Normal 0.046 - 0.5 ng/mL: Suggestive 0.6 - 1.5 ng/mL: Consistent 34 NEGATIVE FOR C. DIFFICILE TOXIN A/B. Method: Alere Tox A/B Quik Chek Rapid Immunoassay CORRELATE RESULTS WITH CLINICAL CONDITION. 35 0.0 - 0.045 ng/mL: Normal 0.046 - 0.5 ng/mL: Suggestive 0.6 - 1.5 ng/mL: Consistent 36 URINE, CLEAN CATCH 37 NO ENTERIC PATHOGENS ISOLATED 38 ................................................... 39 INCLUDES TESTING FOR SALMONELLA, SHIGELLA, AEROMONAS, 40 PLESIOMONAS, CAMPYLOBACTER, AND E. COLI 0157:H7 41 ................................................... 42 YERSINIA AND VIBRIO ARE NOT ROUTINELY SCREENED FOR AND 43 SHOULD BE REQUESTED SEPARATELY 44 SHIGA TOXIN 1 NOT DETECTED 45 SHIGA TOXIN 2 NOT DETECTED Method: ImmunoCard STAT/EHEC Rapid Immunochromatographic Assay 46 Shiga Toxin 2 Not Detected Method: ImmunoCard Stat/Ehec Rapid Immunochromatographic Assay 47 Reference Guidelines*: Desirable: ........... < 200 mg/dL Borderline High: ..... 200-239 mg/dL High: ................ >=240 mg/dL * The National Cholesterol Education Program (NCEP) 48 Reference Guidelines*: Normal: ............. < 150 mg/dL Borderline High: .... 150-199 mg/dL High: ............... 200-499 mg/dL Very High: .......... > 500 mg/dL * Source: National Cholesterol Education Program (NCEP) 49 Reference Guidelines*: Low HDL: ..... < 40 mg/dL Normal: ..... 40-60 mg/dL Desirable: ... > 60 mg/dL *The National Cholesterol Education Program(NCEP) 50 Reference Guidelines*: Optimal:........... <100 mg/dL Near Optimal....... 100-129 mg/dL Borderline High.... 130-159 mg/dL High............... 160-189 mg/dL Very High.......... >=190 mg/dL * Source: National Cholesterol Education Program (NCEP) 51 Values below the stated reference ranges of AST and ALT can be seen in normal populations. Clinical correlation is suggested. 52 Note: Persistent reduction for 3 months or more in an eGFR <60 mL/min/1.73 m2 defines CKD. Patients with eGFR values >/=60 mL/min/1.73 m2 may also have CKD if evidence of persistent proteinuria is present. The original MDRD equation for estimated GFR is not valid for patients less than 18 years of age. Additional information may be found at [email or web address]. 53 Note: Persistent reduction for 3 months or more in an eGFR <60 mL/min/1.73 m2 defines CKD. Patients with eGFR values >/=60 mL/min/1.73 m2 may also have CKD if evidence of persistent proteinuria is present. The original MDRD equation for estimated GFR is not valid for patients less than 18 years of age. Additional information may be found at [email or web address]. 54 Relative Risk for Future Cardiovascular Event Low <1.00 Average 1.00 - 3.00 High >3.00 Procedures Date CPT Code Description Status 10/03/2017 32069 EKG-Tracing And Report Completed 03/31/2017 64829 EKG-Tracing And Report Completed 01/26/2017 38609 EKG-Tracing And Report Completed 01/19/2017 44269 EKG-Tracing And Report Completed 01/08/2017 14141 EKG Interpretation And Report Only Completed 01/07/2017 38265 EKG Interpretation And Report Only Completed 01/05/2017 56078 Echocardiogram Complete Completed 01/04/2017 89710 EKG Interpretation And Report Only Completed 10/29/2015 74955 EKG-Tracing And Report Completed 10/20/2014 41959 EKG-Tracing And Report Completed 10/22/2012 13041 EKG-Tracing And Report Completed 07/22/2012 99126 Echocardiogram Complete Completed Encounters Type Date Location Provider CPT E/M Dx Office Visit 10/03/2017 9:30a [place] [address] I48.0 I71.2 I10 R63.3 Office Visit 03/31/2017 9:40a Cardiology Office KELLE Whitley 44233 I48.0 I71.2 I10 E78.2 Office Visit 02/08/2017 1:40p [place] [address] Z01.30 Office Visit 01/26/2017 10:00a [place] [address] I48.0 Z79.01 I71.2 I10 Office Visit 01/19/2017 3:00p [place] [address] I48.91 Office Visit 01/05/2017 2:28p [place] [address] I48.91 Office Visit 05/03/2016 9:40a Cardiology [place] ANP [address]408 I10 I71.2 E78.2 Office Visit 10/29/2015 10:00a [place] [address] I10 I71.2 Office Visit 10/20/2014 1:30p Cardiology Office Ana Rosa Colon [place], ANP 567[address] 441.2 401.1 272.0 Office Visit 02/17/2014 10:40a Cardiology [place] [address] 441.2 401.1 272.0 Office Visit 08/19/2013 10:40a [place]iology [place] [address] 441.2 401.1 272.0 Office Visit 02/15/2013 9:40a [place] [address] 441.2 401.1 272.0 Office Visit 12/11/2012 11:00a [place]iology [place] [address] 441.2 401.1 272.0 Office Visit 10/22/2012 10:00a Cardiology [place] [address] 441.2 401.1 272.0 Office Visit 07/23/2012 1:45p [place]iology [place] [address] 441.2 Plan of Care Future Appointment(s):01/03/2018 10:15 am - Gayla Negron MD at [facility]10/03/2017 - Gayla Negron MDI48.0 Paroxysmal atrial fibrillationComments: Well controlled with Amiodarone. Denies side effects. Will need safety labs. Anticoagulated with Eliquis. Refill [id number] Thoracic aortic aneurysm, without ruptureComments:4.4 cm on last Echo. Declined follow ups and any possible intervention. Needs better BP control.I10 Essential (primary) hypertensionComments:Suboptimal. Repeated BP 152 mmHg systolic. Will increase Lisinopril to 10 mg [id number] Feeding difficultiesComments:Encouraged to revisit dentistAllNew Medication:Lisinopril 10 mgFollow up:3 months
--- OUTSIDE RECORDS SUMMARY | 2017-10-25 09:28 | XMS REPORT ---
:1935 External Reference #:[id number] Author Organization [facility] Address [address] [place] [address] Phone [phone] Care Team Providers Name Role Phone Taj Vargas MD Primary Care Physician Unavailable Payers Type Date Identification Numbers Payment Provider Subscriber Medicare Primary Policy Number: [id number] Medicare Cyndi Spears PayID: [id number] [address] [place] [address] [facility] Policy Number: [id number] [facility] Cyndi Spears PayID: [id number] [address] [place] [address] Problems Date Description Provider Status Onset: 10/22/2012 [...] Form Strength Qnty SIG Indications Ordering Provider Reggie 03/28/ Active Tablets 2.5mg 180tab 1 tab by Gayla Negron MD twice daily Lisinopril 02/08/ Active Tablets 5mg 90tabs 1 by mouth Gayla 2016 every day MD Jamil Amiodarone HCL 01/31/ Active Tablets 200mg 180tab 1 to 2 Viktoriya 2016 s tablets by Simonetta mouth Santana, every day MSN, [employer] as directed Pravachol / Active Tablets 40mg 90tabs 1 po qd Unknown 0000 Tylenol Extra / Active Tablets 500mg 1-2 tabs Unknown Strength 0000 by mouth every 4 hours as needed Lisinopril 02/08/ Hx Tablets 10mg 90tabs once daily Gayla 2016 - MD Jamil 2016 Lisinopril-Hydr 05/16/ Hx Tablets 10-12.5mg 90tabs take 1 Viktoriya ochlorothiazide 2013 tablet by Simonetta mouth once Santana, daily MSN, [employer] Carvedilol 10/22/ Hx Tablets 3.125mg 180tab 1 tab by I10 Viktoriya 2012 s mouth Jp twice a Santana, day MSN, [employer] Lisinopril/Hydr / Hx Tablets 10-12.5mg 90tabs 1 po qd Brennon Soriano ochlorothiazide 0000 - MD Luis, PhD 2013 Loratadine / Hx Tablets 10mg 1 tab by Unknown Allergy Relief 0000 Dispers mouth every day as needed allergies Amlodipine / Hx Tablets 5mg 1/2 by Unknown Besylate 0000 mouth every day Amiodarone HCL / Hx Tablets 200mg 93tabs 2 tablets Viktoriya 0000 - a day for Jp 01/31/ three days Esther2016 and then MSN, [employer] go back to 1 tablet per day therafter. Metronidazole 00/ Hx Tablets 500mg 1 by mouth Unknown 0000 three times a day Eliquis / Hx Tablets 2.5mg 1 tab by Tropic 0000 - mouth MD Jamil 03/28/ twice 2017 daily Furosemide / Hx Tablets [...] kg/m2 BSA (Body Surface Area) 1.53 m2 [place] body weight in kilograms 50 03/31/2017 BP Systolic Sitting Left Arm 140 mmHg BP Diastolic Sitting Left Arm 64 mmHg Heart Rate 62 /min Respiratory Rate 16 /min Height 62 inches 5'2" Weight 123.00 lb BMI (Body Mass Index) 22.5 kg/m2 BSA (Body Surface Area) 1.55 m2 [place] body weight in kilograms 50 02/08/2017 BP Systolic Sitting Left Arm 187 mmHg BP Diastolic Sitting Left Arm 64 mmHg 01/26/2017 BP Systolic Sitting Left Arm 132 mmHg BP Diastolic Sitting Left Arm 66 mmHg Heart Rate 68 /min Respiratory Rate 16 /min Height 62 inches 5'2" Weight 129.00 lb BMI (Body Mass Index) 23.6 kg/m2 BSA (Body Surface Area) 1.59 m2 [place] body weight in kilograms 50 01/19/2017 BP Systolic Sitting Right Arm 124 mmHg BP Diastolic Sitting Right Arm 58 mmHg Heart Rate 74 /min Respiratory Rate 16 /min Height 62 inches 5'2" Weight 128.00 lb BMI (Body Mass Index) 23.4 kg/m2 BSA (Body Surface Area) 1.58 m2 [place] body weight in kilograms 50 05/03/2016 BP [...] Test Date Test Result H/L Range Note MCV RBC Auto 01/09/2017 MCV RBC Auto [...] 141 136-145 Unloinc 01/09/2017 Unloinc See Note 1 WBC # Bld Auto 01/09/2017 WBC # Bld Auto 7.4 3.1-10.7 Laboratory test 01/09/2017 Act Partial Thrombo 78.1 seconds High 23.4- 35.0 2, 3 finding Time Basic Metabolic Panel 01/09/2017 Glucose 130 mg/dL High 74-106 2 BUN 5 mg/dL Low 7-18 2 Creatinine 1.0 mg/dL 0.6-1.3 2 Glom Filtration Rate, Estimate 57 mL/min >60 2 If >60 mL/min >60 2, 4 BUN/Creat 5.0 ratio 2 Sodium 141 mmol/L 136-145 2 Potassium 3.9 mmol/L 3.5-5.1 2 Chloride 107 mmol/L 98-107 2 Carbon Dioxide 27 mmol/L 21-32 2 Anion Gap 7 mEq/L Low 8-16 2 Calcium 8.1 mg/dL Low 8.5-10.1 2 CBS W/Automated Diff 01/09/2017 White Blood Count 7.4 K/uL 3.1-10.7 2 Red Blood Count 3.37 M/uL Low 3.90-5.40 2 Hemoglobin 10.2 gm/dL Low 11.6-15.8 2 Hematocrit 31.1 % Low 36.0-46.1 2 Mean Cell Volume 92.3 fl 80.9-99.0 2 Mean Corpuscular HGB 30.3 pg 25.9-32.7 2 Mean Corpuscular HGB Conc 32.8 g/dL 30.8-34.3 2 Platelet Count 218 K/uL 150-400 2 Red Cell Distri Width SD 43.2 fl 3-47 2 Red Cell Distri Width %CV 13.4 % 11.7-14.4 2 Mean Platelet Volume 9.8 fL 8.9-12.4 2 Neut% 65.7 % 40.4-72.8 2 Lymph % 16.4 % Low 20.0-42.0 2 [place] % 12.6 % 4.3-13.2 2 Eo% 5.0 % 0.0-6.6 2 Bas% 0.3 % 0.0-1.1 2 Neut# 4.86 K/uL 1.8-7.0 2 Lymph # 1.21 K/uL 1.0-4.0 2 [place] # 0.93 K/uL High 0.3-0.9 2 Eos # 0.37 K/uL 0.0-0.5 2 Baso # 0.02 K/uL 0.0-0.1 2 Laboratory test 01/09/2017 Slide Review (SEE NOTE) 2, 5 finding Anion Gap SerPl-sCnc 01/09/2017 Anion Gap SerPl-sCnc 7 Low 8-16 BUN SerPl-mCnc 01/09/2017 BUN SerPl-mCnc 5 7-18 BUN/Creat SerPl 01/09/2017 BUN/Creat SerPl 5.0 Basophils [#/volume] 01/09/2017 Basophils [#/volume] 0.02 0.0-0.1 in Blood by Automated in Blood by Automated count count Basophils/leuk NFr 01/09/2017 Basophils/leuk NFr 0.3 0.0-1.1 Bld Auto Bld Auto Co2 SerPl-sCnc 01/09/2017 Co2 SerPl-sCnc 27 21-32 Calcium SerPl-mCnc 01/09/2017 Calcium SerPl-mCnc 8.1 Low 8.5-10.1 Chloride SerPl-sCnc 01/09/2017 Chloride SerPl-sCnc 107 98-107 Creat SerPl-mCnc 01/09/2017 Creat SerPl-mCnc 1.0 0.6-1.3 Eosinophil # Bld Auto 01/09/2017 Eosinophil # Bld Auto 0.37 0.0-0.5 Eosinophil/leuk NFr 01/09/2017 Eosinophil/leuk NFr 5.0 0.0-6.6 Bld Auto Bld Auto GFR/Bsa pred.non 01/09/2017 GFR/Bsa pred.non 57 >60 black SerPl black SerPl MDRD-ArVRat MDRD-ArVRat Glucose [Mass/volume] 01/09/2017 Glucose [Mass/volume] 130 High 74-106 in Serum or Plasma in Serum or Plasma Hct VFr Bld Auto 01/09/2017 Hct VFr Bld Auto 31.1 Low 36.0-46.1 Hgb Bld-mCnc 01/09/2017 Hgb Bld-mCnc 10.2 Low 11.6-15.8 Lymphocytes 01/09/2017 Lymphocytes 1.21 1.0-4.0 [#/volume] in Blood [#/volume] in Blood by Automated count by Automated count Lymphocytes/leuk NFr 01/09/2017 Lymphocytes/leuk NFr 16.4 Low 20.0-42.0 Bld Auto Bld Auto MCH RBC Qn Auto 01/09/2017 MCH RBC Qn Auto 30.3 25.9-32.7 MCHC RBC Auto-mCnc 01/09/2017 MCHC RBC Auto-mCnc 32.8 30.8-34.3 Laboratory test 01/08/2017 Act Partial Thrombo 85.3 seconds High 23.4- 35.0 2 finding Time Laboratory test 01/08/2017 Act Partial Thrombo 61.3 seconds High 23.4- 35.0 2, 6 finding Time CBS W/Automated Diff 01/08/2017 White Blood Count 8.5 K/uL 3.1-10.7 2 Red Blood Count 2.95 M/uL Low 3.90-5.40 2 Hemoglobin 9.0 gm/dL Low 11.6-15.8 2 Hematocrit 27.7 % Low 36.0-46.1 2 Mean Cell Volume 93.9 fl 80.9-99.0 2 Mean Corpuscular HGB 30.5 pg 25.9-32.7 2 Mean Corpuscular HGB Conc 32.5 g/dL 30.8-34.3 2 Platelet Count 183 K/uL 150-400 2 Red Cell Distri Width SD 44.7 fl 3-47 2 Red Cell Distri Width %CV 13.5 % 11.7-14.4 2 Mean Platelet Volume 10.4 fL 8.9-12.4 2 Neut% 71.5 % 40.4-72.8 2 Lymph % 14.4 % Low 20.0-42.0 2 [place] % 9.4 % 4.3-13.2 2 Eo% 4.5 % 0.0-6.6 2 Bas% 0.2 % 0.0-1.1 2 Neut# 6.05 K/uL 1.8-7.0 2 Lymph # 1.22 K/uL 1.0-4.0 2 [place] # 0.80 K/uL 0.3-0.9 2 Eos # 0.38 K/uL 0.0-0.5 2 Baso # 0.02 K/uL 0.0-0.1 2 Basic Metabolic Panel 01/08/2017 Glucose 101 mg/dL 74-106 2 BUN 4 mg/dL Low 7-18 2 Creatinine 1.0 mg/dL 0.6-1.3 2 Glom Filtration Rate, Estimate 57 mL/min >60 2 If >60 mL/min >60 2, 7 BUN/Creat 4.0 ratio 2 Sodium 145 mmol/L 136-145 2 Potassium 3.8 mmol/L 3.5-5.1 2 Chloride 114 mmol/L High 98-107 2 Carbon Dioxide 25 mmol/L 21-32 2 Anion Gap 6 mEq/L Low 8-16 2 Calcium 8.0 mg/dL Low 8.5-10.1 2 Laboratory test 01/08/2017 Act Partial > 150.0 High 23.4-35.0 2, 8 finding Thrombo Time seconds Laboratory test 01/08/2017 Legionella Negative Negative 2, 9 finding Antigen,Urine Laboratory test 01/07/2017 Act Partial 143.6 seconds High 23.4-35.0 2, 10 finding Thrombo Time CBC 01/07/2017 White Blood Count 11.5 K/uL High 3.1-10.7 2 Red Blood Count 3.30 M/uL Low 3.90-5.40 2 Hemoglobin 10.2 gm/dL Low 11.6-15.8 2 Hematocrit 31.3 % Low 36.0-46.1 2 Mean Cell Volume 94.8 fl 80.9-99.0 2 Mean Corpuscular HGB 30.9 pg 25.9-32.7 2 Mean Corpuscular HGB Conc 32.6 g/dL 30.8-34.3 2 Platelet Count 193 K/uL 150-400 2 Red Cell Distri Width %CV 13.6 % 11.7-14.4 2 Mean Platelet Volume 10.8 fL 8.9-12.4 2 Protime 01/07/2017 Protime 16.3 seconds High 12.0-14.4 2 Inr 1.3 High 0.9-1.1 2, 11 Laboratory test 01/07/2017 Act Partial Thrombo 32.2 seconds 23.4-35.0 2 , 12 finding Time Prothrombin time 01/07/2017 Prothrombin time 16.3 High 12.0-14.4 Aot Request 01/07/2017 Aot Request Test(s) added 2, 13 Tests to be added: pro-BNP 2 * Miscellaneous studies 01/07/2017 * Miscellaneous studies Test(s) added (set) (set) CBC 01/07/2017 White Blood Count 10.1 K/uL 3.1-10.7 2 Red Blood Count 3.30 M/uL Low 3.90-5.40 2 Hemoglobin 10.0 gm/dL Low 11.6-15.8 2 Hematocrit 31.5 % Low 36.0-46.1 2 Mean Cell Volume 95.5 fl 80.9-99.0 2 Mean Corpuscular HGB 30.3 pg 25.9-32.7 2 Mean Corpuscular HGB Conc 31.7 g/dL 30.8-34.3 2 Platelet Count 174 K/uL 150-400 2 Red Cell Distri Width %CV 13.6 % 11.7-14.4 2 Mean Platelet Volume 10.7 fL 8.9-12.4 2 Basic Metabolic Panel 01/07/2017 Glucose 104 mg/dL 74-106 2 BUN 6 mg/dL Low 7-18 2 Creatinine 0.9 mg/dL 0.6-1.3 2 Glom Filtration Rate, Estimate >60 mL/min >60 2 If >60 mL/min >60 2, 14 BUN/Creat 6.6 ratio 2 Sodium 147 mmol/L High 136-145 2 Potassium 3.4 mmol/L Low 3.5-5.1 2 Chloride 118 mmol/L High 98-107 2 Carbon Dioxide 20 mmol/L Low 21-32 2 Anion Gap 9 mEq/L 8-16 2 Calcium 8.8 mg/dL 8.5-10.1 2 Laboratory test finding 01/07/2017 Magnesium 1.9 mg/dL 1.8-2.4 2 Laboratory test finding 01/07/2017 NT-proBNP 6514.0 pg/mL High <450 2 Serum or plasma 01/07/2017 Serum or plasma 6514.0 High <450 natriuretic peptide B natriuretic peptide B prohormone N prohormone N-terminal measurement (mass/volume) CBC 01/06/2017 White Blood Count 12.6 K/uL High 3.1-10.7 2 Red Blood Count 3.15 M/uL Low 3.90-5.40 2 Hemoglobin 9.7 gm/dL Low 11.6-15.8 2 Hematocrit 30.2 % Low 36.0-46.1 2 Mean Cell Volume 95.9 fl 80.9-99.0 2 Mean Corpuscular HGB 30.8 pg 25.9-32.7 2 Mean Corpuscular HGB Conc 32.1 g/dL 30.8-34.3 2 Platelet Count 142 K/uL Low 150-400 2 Red Cell Distri Width %CV 13.5 % 11.7-14.4 2 Mean Platelet Volume 10.5 fL 8.9-12.4 2 Basic Metabolic Panel 01/06/2017 Glucose 94 mg/dL 74-106 2 BUN 12 mg/dL 7-18 2 Creatinine 1.0 mg/dL 0.6-1.3 2 Glom Filtration Rate, Estimate 57 mL/min >60 2 If >60 mL/min >60 2, 15 BUN/Creat 12.0 ratio 2 Sodium 144 mmol/L 136-145 2 Potassium 3.4 mmol/L Low 3.5-5.1 2 Chloride 115 mmol/L High 98-107 2 Carbon Dioxide 20 mmol/L Low 21-32 2 Anion Gap 9 mEq/L 8-16 2 Calcium 7.6 mg/dL Low 8.5-10.1 2 Reflex add FT3? Y 2 Reflex add FT4? Y 2 Magnesium 01/06/2017 Magnesium 1.7 mg/dL Low 1.8-2.4 2 Reflex add FT3? Y 2 Reflex add FT4? Y 2 Stool bacteria 01/06/2017 Stool bacteria Organism: No identification by identification by Enteric Pathogens culture culture Isolated Stool Culture 01/06/2017 Stool Culture NO ENTERIC PATHO 2, 16 <SEE NOTE> . ................ <SEE NOTE> 2, 17 Note: INCLUDES TESTING <SEE NOTE> 2, 18 . PLESIOMONAS, CAM <SEE NOTE> 2, 19 . ................ <SEE NOTE> 2, 20 . YERSINIA AND VIB <SEE NOTE> 2, 21 . SHOULD BE REQUES <SEE NOTE> 2, 22 Shiga Toxin 1 Antigen Test not perform <SEE NOTE> 2, 23 Shiga Toxin 2 Antigen Test not perform <SEE NOTE> 2, 24 TSH SerPl-aCnc 01/06/2017 TSH SerPl-aCnc 0.98 0.30-4.20 TSH Reflex FT4 And/Or FT3 01/06/2017 Thyroid Stim Hormone 0.98 uIU/mL 0.30-4.20 2 Reflex add FT3? Y 2 Reflex add FT4? Y 2 Bacteria Bld Aerobe 01/05/2017 Bacteria Bld Aerobe No Growth: Final Cult Cult Report Anaerobic blood 01/05/2017 Anaerobic blood No Growth: Final culture culture Report Blood Culture 01/05/2017 Blood Culture Aerobic NO GROWTH: FINAL 2, 25 <SEE NOTE> Blood Culture Anaerobic NO GROWTH: FINAL <SEE NOTE> 2, 26 Lactic Acid 01/05/2017 Lactic Acid 1.9 mmol/L 0.4-1.9 2 Lab Reflex >2.0 for Sepsis? Y 2 pH Ur Strip.auto 01/05/2017 pH Ur Strip.auto 5.5 Low 6.5-7.5 Urobilinogen Ur 01/05/2017 Urobilinogen Ur 0.2 0.2-1.0 Strip-aCnc Strip-aCnc Urine hemoglobin 01/05/2017 Urine hemoglobin Moderate High Negative detection by automated detection by automated test strip test strip Epithelial cells 01/05/2017 Epithelial cells Few None Seen [Presence] in Urine [Presence] in Urine sediment by L sediment by Light microscopy Color Ur 01/05/2017 Color Ur Yellow Yellow Bilirub Ur Ql Strip.auto 01/05/2017 Bilirub Ur Ql Negative Negative Strip.auto Bacteria [Presence] in 01/05/2017 Bacteria [Presence] in Very Few None Seen Urine sediment by Light Urine sediment by Light colby microscopy Amorphous sediment 01/05/2017 Amorphous sediment Very Few Negative [Presence] in Urine [Presence] in Urine sediment by sediment by Light microscopy Ua Routine 01/05/2017 Urine Color YELLOW Yellow 2 Urine Clarity CLEAR Clear 2 Urine Glucose - Dipstick NEGATIVE mg/dL Negative 2 Urine Bilirubin - Dipstick NEGATIVE Negative 2 Urine Ketone NEGATIVE mg/dL Negative 2 Urine Specific Cochrane <=1.005 Low 1.010-1.030 2 Urine Blood MODERATE Negative 2 Urine PH 5.5 Low 6.5-7.5 2 Urine Protein - Dipstick NEGATIVE mg/dL Negative 2 Urine Urobilinogen - Dipstick 0.2 E.U./dL 0.2-1.0 2 Urine Nitrite - Dipstick NEGATIVE Negative 2 Urine Leuk Esterase MODERATE Negative 2 Urine RBC 2-5 rbc/hpf 0-2 2 Urine WBC 0-2 wbc/hpf 0-7 2 Urine Epithelial Cells FEW /lpf None Seen 2 Urine Uric Acid Crystals FEW None Seen 2 Urine Bacteria VERY FEW None Seen 2 Urine Amorph Sediment VERY FEW Negative 2 Source: URINE, CLEAN CAT <SEE NOTE> 2, 27 Lactic Acid 01/05/2017 Lactic Acid 2.5 mmol/L High 0.4-1.9 2 Lab Reflex >2.0 for Sepsis? Y 2 Laboratory test finding 01/05/2017 Troponin-I 0.036 ng/mL 2, 28 Lactic Acid 01/05/2017 Lactic Acid 2.5 mmol/L High 0.4-1.9 2 Lab Reflex >2.0 for Sepsis? Y 2 Laboratory test 01/05/2017 Troponin-I 0.041 ng/mL 2, 29 finding Laboratory test 01/05/2017 C. Difficile Toxin NEGATIVE FOR C. 2, 30 finding A/B <SEE NOTE> Lactate 01/05/2017 Lactate 1.3 0.4-1.9 [Moles/volume] in [Moles/volume] in Serum or Plasma Serum or Plasma Lactic Acid 01/05/2017 Lactic Acid 1.3 mmol/L 0.4-1.9 2 Lab Reflex >2.0 for Sepsis? Y 2 Urine glucose 01/05/2017 Urine glucose Negative Negative [...] Nitrite Ur Ql Negative Negative Strip.auto Strip.auto Leukocyte esterase 01/05/2017 Leukocyte esterase Moderate High Negative Ur Ql Strip.auto Ur Ql Strip.auto Ketones Ur 01/05/2017 Ketones Ur Negative Negative Strip.auto-mCnc Strip.auto-mCnc Stool Culture 01/04/2017 Stool Culture NO ENTERIC 31 PATHO <SEE NOTE> . ................ <SEE NOTE> 2, 32 Note: INCLUDES TESTING <SEE NOTE> 2, 33 . PLESIOMONAS, CAM <SEE NOTE> 2, 34 . ................ <SEE NOTE> 2, 35 . YERSINIA AND VIB <SEE NOTE> 2, 36 . SHOULD BE REQUES <SEE NOTE> 2, 37 Shiga Toxin 1 Antigen SHIGA TOXIN 1 NO <SEE NOTE> 2, 38 Shiga Toxin 2 Antigen SHIGA TOXIN 2 NO <SEE NOTE> 2, 39 Escherichia coli 01/04/2017 Escherichia coli Shiga Toxin 1 Shiga-like toxin 1 Shiga-like toxin 1 Not Detected detection detection Escherichia coli 01/04/2017 Escherichia coli See Note 40 Shiga-like toxin 2 Shiga-like toxin 2 detection detection Stool leukocytes 01/04/2017 Stool leukocytes None Seen detection by light detection by light microscopy microscopy Stool occult blood 01/04/2017 Stool occult blood Negative Negative Unloinc 01/04/2017 Unloin Stool Total Cells Counted 01/04/2017 Total Cells Counted 100 Bld Bld Alp SerPl-cCnc 01/04/2017 Alp SerPl-cCnc 70 45-117 [...] Lipase SerPl-cCnc 01/04/2017 Lipase SerPl-cCnc 350 73-393 Lymphocytes/100 01/04/2017 Lymphocytes/100 3 Low 20-42 leukocytes in Blood by leukocytes in Blood by Manual coun Manual count Monocytes/100 01/04/2017 Monocytes/100 6 0-10 leukocytes in Blood by leukocytes in Blood by Manual count Manual count Neuts Band/leuk NFr 01/04/2017 Neuts Band/leuk NFr 5 0-8 Bld Manual Bld Manual Neuts Seg/leuk NFr Bld 01/04/2017 Neuts Seg/leuk NFr Bld 85 High 33-73 Manual Manual Prot SerPl-mCnc 01/04/2017 Prot SerPl-mCnc 7.8 6.4-8.2 LDL Cholesterol 10/30/2014 Cholesterol 142 mg/dL < 200 41 Profile Triglycerides 156 mg/dL < 150 42 HDL Cholesterol 48 mg/dL > 40 43 LDL-Cholesterol 63 mg/dL < 100 44 Laboratory test finding 10/30/2014 Thyroid Stim Hormone 1.34 uIU/mL 0.36- 3.74 CBC W/Automated Diff 10/30/2014 White Blood Count [...] % 40.4-72.8 Lymph % 17.8 % 17.0-46.1 [place] % 10.9 % 4.3-13.2 Eo% 3.9 % 0.0-6.6 Bas% 0.4 % 0.0-1.1 Neut# 4.79 K/uL 1.0-7.0 Lymph # 1.27 K/uL Low 1.8-7.0 [place] # 0.78 K/uL 0.3-0.9 Eos # 0.28 K/uL 0.0-0.5 Baso # 0.03 K/uL 0.0-0.1 Basic Metabolic Panel 10/30/2014 Glucose 93 mg/dL 74-106 BUN 25 mg/dL High 7-18 Creatinine 1.1 mg/dL 0.6-1.3 Glom Filtration Rate, Estimate 51 mL/min >60 If >60 mL/min >60 45 BUN/Creat 22.7 ratio Sodium 141 mmol/L 136-145 Potassium 4.3 mmol/L 3.5-5.1 Chloride 106 mmol/L 98-107 Carbon Dioxide 29 mmol/L 21-32 Anion Gap 6 mEq/L Low 8-16 Calcium 9.4 mg/dL 8.5-10.1 Liver Function Tests 10/30/2014 Total Protein 7.5 g/dL 6.4-8.2 Albumin 3.6 g/dL 3.4-5.0 Globulin 3.9 g/dL 1.9-4.3 Alb/Glob 0.9 ratio Bilirubin,Total 0.3 mg/dL 0.2-1.0 Bilirubin,Direct 0.1 mg/dL 0.0-0.2 Bilirubin,Indirect 0.2 mg/dL 0.0-0.9 Sgot/Ast 13 U/L Low 15-37 46 SGPT/Alt 15 U/L 12-78 Alkaline Phosphatase 73 U/L 45-117 CBC 08/13/2013 White Blood Count 7.1 K/uL 3.1-10.7 Red Blood Count 3.99 M/uL 3.90-5.40 Hemoglobin 11.9 gm/dL 11.6-15.8 Hematocrit 37.6 % 36.0-46.1 Mean Cell Volume 94.2 fl 80.9-99.0 Mean Corpuscular HGB 29.8 pg 25.9-32.7 Mean Corpuscular HGB Conc 31.6 g/dL 30.8-34.3 Platelet Count 271 K/uL 155-360 Red Cell Distri Width %CV 13.7 % 11.7-14.4 Mean Platelet Volume 10.1 fL 8.9-12.4 Laboratory test 08/13/2013 C-Reactive 17.20 mg/L High 0.00-3.00 47 finding Protein,Cardiac LDL Cholesterol 08/13/2013 Cholesterol 167 mg/dL 120-200 Profile Triglycerides 123 mg/dL 16-231 HDL Cholesterol 57 mg/dL 29-83 LDL-Cholesterol 85 mg/dL 62-185 Comprehensive Metabolic Panel 08/13/2013 Glucose 104 mg/dL 76-115 BUN 20 mg/dL 5-23 Creatinine 1.1 mg/dL 0.5-1.4 Glom Filtration Rate, Estimate 51 mL/min >60 If >60 mL/min >60 48 BUN/Creat 18.1 ratio Sodium 138 mmol/L 136-145 [...] Low 30-65 Alkaline Phosphatase 85 U/L 50-136 Laboratory test 08/13/2013 Microalbumin,Random Urine 20.2 mg/L High 0.0- 18.5 finding Liver Function Tests 10/29/2012 Total Protein 8.2 [...] mg/dL 29-83 LDL-Cholesterol 94 mg/dL 62-185 1 Instrument flagged sample for slide review. Less than 10% Bands seen, no other immature WBC's seen. RBC morphology essentially normal. Platelet estimate= Normal 2 ACUTE COLITIS 3 Is patient on heparin protocol? Y Is patient on anticoagulants? Heparin 4 Note: Persistent reduction for 3 months or more in an eGFR <60 mL/min/1.73 m2 defines CKD. Patients with eGFR values >/=60 mL/min/1.73 m2 may also have CKD if evidence of persistent proteinuria is present. The original MDRD equation for estimated GFR is not valid for patients less than 18 years of age. Additional information may be found at [email or web address]. 5 Instrument flagged sample for slide review. Less than 10% Bands seen, no other immature WBC's seen. RBC morphology essentially normal. Platelet estimate=Normal 6 Is patient on heparin protocol? Y Is patient on anticoagulants? Heparin 7 Note: Persistent reduction for 3 months or more in an eGFR <60 mL/min/1.73 m2 defines CKD. Patients with eGFR values >/=60 mL/min/1.73 m2 may also have CKD if evidence of persistent proteinuria is present. The original MDRD equation for estimated GFR is not valid for patients less than 18 years of age. Additional information may be found at [email or web address]. 8 CHECKED CALLED APTT TO DANIE Nguyen RN AT [phone] 01/08/17 by [email or web address] Is patient on heparin protocol? Y OK To Combine Draws Per RN 9 Presumptive negative for L. pneumophila serogroup 1 antigen in urine, suggesting no recent or current infection. Legionnaires' disease cannot be ruled out since other serogroups and species may also cause disease. Performed at: - [facility] [id number] [place] [employer]: Paramjit Billy MD, Phone: [phone] 10 Is patient on heparin protocol? Y Is patient on anticoagulants? Heparin CALLED PTT TO NAYA Stoll AT 0026 01/08/17 by [email or web address] 11 THERAPEUTIC INR RANGE: 2.0 - 3.0 DVT, Pulmonary embolus, prophylaxis against venous thrombosis or systemic embolization in high risk patients. 2.5 - 3.5 Mechanical heart valves 12 Is patient on heparin protocol? Y Is patient on anticoagulants? Heparin 13 Tests: pro-BNP Instructions: 14 Note: Persistent reduction for 3 months or more in an eGFR <60 mL/min/1.73 m2 defines CKD. Patients with eGFR values >/=60 mL/min/1.73 m2 may also have CKD if evidence of persistent proteinuria is present. The original MDRD equation for estimated GFR is not valid for patients less than 18 years of age. Additional information may be found at [email or web address]. 15 Note: Persistent reduction for 3 months or more in an eGFR <60 mL/min/1.73 m2 defines CKD. Patients with eGFR values >/=60 mL/min/1.73 m2 may also have CKD if evidence of persistent proteinuria is present. The original MDRD equation for estimated GFR is not valid for patients less than 18 years of age. Additional information may be found at [email or web address]. 16 NO ENTERIC PATHOGENS ISOLATED 17 ................................................... 18 INCLUDES TESTING FOR SALMONELLA, SHIGELLA, AEROMONAS, 19 PLESIOMONAS, CAMPYLOBACTER, AND E. COLI 0157:H7 20 ................................................... 21 YERSINIA AND VIBRIO ARE NOT ROUTINELY SCREENED FOR AND 22 SHOULD BE REQUESTED SEPARATELY SCANT ENTERIC LJ 23 Test not performed INSUFFICENT GROWTH TO PERFORM TESTING 24 Test not performed INSUFFICENT GROWTH TO PERFORM TESTING 25 NO GROWTH: FINAL REPORT 26 NO GROWTH: FINAL REPORT 27 URINE, CLEAN CATCH 28 0.0 - 0.045 ng/mL: Normal 0.046 - 0.5 ng/mL: Suggestive 0.6 - 1.5 ng/mL: Consistent 29 0.0 - 0.045 ng/mL: Normal 0.046 - 0.5 ng/mL: Suggestive 0.6 - 1.5 ng/mL: Consistent 30 NEGATIVE FOR C. DIFFICILE TOXIN A/B. Method: Alere Tox A/B Quik Chek Rapid Immunoassay CORRELATE RESULTS WITH CLINICAL CONDITION. 31 NO ENTERIC PATHOGENS ISOLATED 32 ................................................... 33 INCLUDES TESTING FOR SALMONELLA, SHIGELLA, AEROMONAS, 34 PLESIOMONAS, CAMPYLOBACTER, AND E. COLI 0157:H7 35 ................................................... 36 YERSINIA AND VIBRIO ARE NOT ROUTINELY SCREENED FOR AND 37 SHOULD BE REQUESTED SEPARATELY 38 SHIGA TOXIN 1 NOT DETECTED 39 SHIGA TOXIN 2 NOT DETECTED Method: ImmunoCard STAT/EHEC Rapid Immunochromatographic Assay 40 Shiga Toxin 2 Not Detected Method: ImmunoCard Stat/Ehec Rapid Immunochromatographic Assay 41 Reference Guidelines*: Desirable: ........... < 200 mg/dL Borderline High: ..... 200-239 mg/dL High: ................ >=240 mg/dL * The National Cholesterol Education Program (NCEP) 42 Reference Guidelines*: Normal: ............. < 150 mg/dL Borderline High: .... 150-199 mg/dL High: ............... 200-499 mg/dL Very High: .......... > 500 mg/dL * Source: National Cholesterol Education Program (NCEP) 43 Reference Guidelines*: Low HDL: ..... < 40 mg/dL Normal: ..... 40-60 mg/dL Desirable: ... > 60 mg/dL *The National Cholesterol Education Program(NCEP) 44 Reference Guidelines*: Optimal:........... <100 mg/dL Near Optimal....... 100-129 mg/dL Borderline High.... 130-159 mg/dL High............... 160-189 mg/dL Very High.......... >=190 mg/dL * Source: National Cholesterol Education Program (NCEP) 45 Note: Persistent reduction for 3 months or more in an eGFR <60 mL/min/1.73 m2 defines CKD. Patients with eGFR values >/=60 mL/min/1.73 m2 may also have CKD if evidence of persistent proteinuria is present. The original MDRD equation for estimated GFR is not valid for patients less than 18 years of age. Additional information may be found at www.kdoqi.org. 46 Values below the stated reference ranges of AST and ALT can be seen in normal populations. Clinical correlation is suggested. 47 Relative Risk for Future Cardiovascular Event Low <1.00 Average 1.00 - 3.00 High >3.00 48 Note: Persistent reduction for 3 months or more in an eGFR <60 mL/min/1.73 m2 defines CKD. Patients with eGFR values >/=60 mL/min/1.73 m2 may also have CKD if evidence of persistent proteinuria is present. The original MDRD equation for estimated GFR is not valid for patients less than 18 years of age. Additional information may be found at [email or web address]. Procedures Date CPT Code Description Status 10/03/2017 25568 EKG-Tracing And Report Completed 03/31/2017 48567 EKG-Tracing And Report Completed 01/26/2017 17193 EKG-Tracing And Report Completed 01/19/2017 55437 EKG-Tracing And Report Completed 01/08/2017 28676 EKG Interpretation And Report Only Completed 01/07/2017 88243 EKG Interpretation And Report Only Completed 01/05/2017 85333 Echocardiogram Complete Completed 01/04/2017 22293 EKG Interpretation And Report Only Completed 10/29/2015 66158 EKG-Tracing And Report Completed 10/20/2014 67798 EKG-Tracing And Report Completed 10/22/2012 80600 EKG-Tracing And Report Completed 07/22/2012 54457 Echocardiogram Complete Completed Encounters Type Date Location Provider CPT E/M Dx Office Visit 10/03/2017 9:30a [place] [address] I48.0 I71.2 I10 R63.3 Office Visit 03/31/2017 9:40a Cardiology Office KELLE Whitley 13644 I48.0 I71.2 I10 E78.2 Office Visit 02/08/2017 1:40p [place] [address] Z01.30 Office Visit 01/26/2017 10:00a [place] [address] I48.0 Z79.01 I71.2 I10 Office Visit 01/19/2017 3:00p [place] [address] I48.91 Office Visit 01/05/2017 2:28p [place] [address] I48.91 Office Visit 05/03/2016 9:40a Cardiology [place] [address] I10 I71.2 E78.2 Office Visit 10/29/2015 10:00a [place] [address] I10 I71.2 Office Visit 10/20/2014 1:30p Cardiology Office [place] ANP [address] 441.2 401.1 272.0 Office Visit 02/17/2014 10:40a Cardiology [place] [address] 441.2 401.1 272.0 Office Visit 08/19/2013 10:40a Cardiology [place] [address] 441.2 401.1 272.0 Office Visit 02/15/2013 9:40a [place]iology [place] [address] 441.2 401.1 272.0 Office Visit 12/11/2012 11:00a Cardiology [place] [address] 441.2 401.1 272.0 Office Visit 10/22/2012 10:00a Cardiology [place] [address] 441.2 401.1 272.0 Office Visit 07/23/2012 1:45p [place]iology [place] [address] 441.2 Plan of Care Future Appointment(s):01/03/2018 10:15 am - Gayla Negron MD at Cardiology [id number]/03/2017 - Gayla Negron MDI48.0 Paroxysmal atrial fibrillationNew Labs: CBS W/Automated DiffComprehensive Metabolic PanelLDL Cholesterol ProfileMagnesiumTSH Reflex FT4 And/Or PL1Ecdvicvd:Well controlled with Amiodarone. Denies side effects. Will need safety labs. Anticoagulated with Eliquis. Refill [id number] Thoracic aortic aneurysm, without ruptureComments: 4.4 cm on last Echo. Declined follow ups and any possible intervention. Needs better BP control.I10 Essential (primary) hypertensionComments:Suboptimal. Repeated BP 152 mmHg systolic. Will increase Lisinopril to 10 mg uhsddU92.3 Feeding difficultiesComments:Encouraged to revisit dentistAllFollow up:3 months
[2017-10-25 09:39] VITALS: BP 135/51
--- NOTE | 2017-10-25 10:25 | UC ---
Respiratory Complaint HPI - HPI Summary HPI Summary: 1 WEEK OF COUGH AND CONGESTION. COUGH KEEPS HER UP AT NIGHT. NO FEVER, N/V/D. NO ST OR EAR PAIN. - History of Current Complaint Chief Complaint: UCRespiratory Stated Complaint: COUGH Time Seen by Provider: 10/25/17 09:42 Hx Obtained From: Patient Onset/Duration: Gradual Onset, Lasting Days, Still Present Timing: Constant Severity Initially: Moderate Severity Currently: Moderate Pain Intensity: 0 Pain Scale Used: 0-10 Numeric Character: Cough: Nonproductive Aggravating Factors: Nothing Alleviating Factors: Nothing Associated Signs And Symptoms: Positive: URI, Nasal Congestion. Negative: Dyspnea, Fever, Chills, Pleuritic Chest Pain, Wheezing - Allergies/Home Medications Allergies/Adverse Reactions: Allergies Allergy/AdvReac Type Severity Reaction Status Date / Time codeine Allergy Insomnia Verified 09/29/17 20:03 Sulfa (Sulfonamide Allergy Unknown Verified 09/29/17 20:03 Antibiotics) Reaction Details PMH/Surg Hx/FS Hx/Imm Hx Cardiovascular History: Hypertension, Atrial Fibrillation - Surgical History Surgical History: None - Family History Known Family History: Positive: Cardiac Disease, Hypertension - Social History Alcohol Use: None Substance Use Type: None Smoking Status (MU): Former Smoker Length of Time of Smoking/Using Tobacco: 30 yrs Have You Smoked in the Last Year: Yes When Did the Patient Quit Smoking/Using Tobacco: 30 yrs ago - Immunization History Most Recent Influenza Vaccination: no Review of Systems Constitutional: Negative ENT: Nasal Discharge Respiratory: Cough Cardiovascular: Negative Gastrointestinal: Negative Genitourinary: Negative All Other Systems Reviewed And Are Negative: Yes Physical Exam Triage Information Reviewed: Yes Appearance: Well-Appearing, No Pain Distress, Well-Nourished Vital Signs: Initial Vital Signs Temp 98.2 F 10/25/17 09:29 Pulse 57 10/25/17 09:29 Resp 20 10/25/17 09:29 BP 135/51 10/25/17 09:29 Pulse Ox 100 10/25/17 09:29 Vital Signs Reviewed: Yes Eyes: Positive: Conjunctiva Clear ENT: Positive: Hearing grossly normal, Pharynx normal, TMs normal Neck: Positive: Supple, Nontender, No Lymphadenopathy Respiratory Exam: Normal Cardiovascular: Positive: Bradycardia Abdomen Description: Positive: Soft Musculoskeletal: Positive: No Edema Neurological: Positive: Alert Psychological: Positive: Age Appropriate Behavior Skin: Negative: rashes UC Diagnostic Evaluation - Laboratory O2 Sat by Pulse Oximetry: 100 Respiratory Course/Dx - Differential Dx/Diagnosis Provider Diagnoses: BRONCHITIS Discharge - Sign-Out/Discharge Documenting (check all that apply): Discharge - Discharge Plan Condition: Stable Disposition: HOME Prescriptions: Amoxicillin PO (*) [Amoxicillin 875 MG (*)] 875 mg PO BID #20 tab predniSONE TAB* [Deltasone TAB*] 20 mg PO DAILY #4 tab Patient Education Materials: Acute Bronchitis (ED) Referrals: Taj Vargas MD [Primary Care Provider] - If Needed Additional Instructions: YOUR SYMPTOMS MAY BE VIRALLY MEDIATED BUT GIVEN THE LENGTH OF TIME YOU HAVE BEEN ILL WE WILL COVER YOU WITH ANTIBIOTICS. IF YOU START THE MEDICINE BE SURE TO TAKE IT FOR THE FULL COURSE. REST, HYDRATE, OTC MEDS NEEDED. WILL ALSO TREAT WITH PREDNISONE TO HELP WITH AIRWAY INFLAMMATION. OKAY TO USE OTC COUGH MEDICINE. SEEK FOLLOW-UP WITH YOUR PCP IF YOU ARE NOT IMPROVING OVER THE NEXT 1- 2 WEEKS. - Billing Disposition and Condition Condition: STABLE Disposition: HOME
== END 2017-10-25 10:19 | disposition home or self-care (01) ==
LOC: UCCORT 09:08
DX: J40 Bronchitis, not specified as acute or chronic (principal); Z88.5 Allergy status to narcotic agent; Z88.2 Allergy status to sulfonamides; I10 Essential (primary) hypertension; Z87.891 Personal history of nicotine dependence
CPT/HCPCS: 99212; G0463

== ENCOUNTER 2018-02-06 15:20 | Emergency (ER) | payer MEDICARE ==
--- OUTSIDE RECORDS SUMMARY | 2018-02-06 15:40 | XMS REPORT ---
:1935 External Reference #:[id number] Author Organization [facility] Address [address], [address] [place] [address] Phone [phone] Care Team Providers Name Role Phone Taj Vargas MD Care Team Information Before School Unavailable Taj Vargas MD Primary Care Physician Unavailable Payers Type Date Identification Numbers Payment Provider Subscriber Medicare Primary Policy Number: [id number] Medicare Cyndi Spears PayID: [id number] [address] [place] [address] [facility] Policy Number: [id number] [facility] Cyndi Spears PayID: [id number] [address] [place] [address] Problems Date Description Provider Status Onset: 10/22/2012 [...] Ordering Provider Reggie 03/28/ Active Tablets 2.5mg 180ta 1 tab by [place] 2016 bs mouth MD Jamil twice daily Pravachol / Active Tablets 40mg 90tab 1 po qd Unknown 0000 s Tylenol Extra / Active Tablets 500mg 1-2 tabs Unknown Strength 0000 by mouth every 4 hours as needed Amlodipine / Active Tablets 5mg 1 by mouth Unknown Besylate 0000 every day Benzonatate / Active Capsules 200mg 1 tab by Unknown 0000 mouth three times a day Cephalexin / Active Capsules 250mg 1 by mouth Unknown 0000 three times daily Acidophilus / Active Capsules 100mg 1 po daily Unknown 0000 Lisinopril 10/03/ Hx Tablets 10mg 90tab 1 by mouth Gayla 2017 s every day MD Jamil Lisinopril 02/08/ Hx Tablets 10mg 90tab once daily Gayla 2016 - s MD Jamil 2016 Lisinopril 02/08/ Hx Tablets 5mg 90tab 1 by mouth Gayla 2016 - s every day MD Jamil 2017 Amiodarone HCL 01/31/ Hx Tablets 200mg 180ta 1 to 2 Viktoriya 2016 bs tablets by [place] mouth Santana, every day MSN, X RAY NURSE as directed Lisinopril-Hydr 05/16/ Hx Tablets 10-12.5mg 90tab take 1 Viktoriya ochlorothiazide 2013 s tablet by [place] mouth once Santana, daily MSN, X RAY NURSE Carvedilol 10/22/ Hx Tablets 3.125mg 180ta 1 tab by I10 Viktoriya 2012 bs mouth Simonetta twice a Santana, day MSN, X RAY NURSE Lisinopril/Hydr / Hx Tablets 10-12.5mg 90tab 1 po qd Brennon Soriano ochlorothiazide - s MD Luis, 05/16/ PhD 2013 Loratadine / Hx Tablets 10mg 1 tab by Unknown Allergy Relief 0000 Dispers mouth every day as needed allergies Amlodipine / Hx Tablets 5mg 1/2 by Unknown Besylate 0000 mouth every day Amiodarone HCL / Hx Tablets 200mg 93tab 2 tablets Viktoriya 0000 - s a day for Simonetta 01/31/ three days Esther, 2016 and then MSN, X RAY NURSE go back to 1 tablet per day therafter. Metronidazole / Hx Tablets 500mg 1 by mouth Unknown 0000 three times a day Eliquis / Hx Tablets 2.5mg 1 tab by Gayla 0000 - mouth MD Jamil 2017 daily Furosemide / Hx Tablets 40mg 1 by mouth Unknown 0000 every day If Needed Vital Signs Date Vital Result Comment 01/12/2018 BP Systolic Sitting Left Arm 110 mmHg BP Diastolic Sitting Left Arm 62 mmHg Heart Rate 64 /min Respiratory Rate 16 /min Height 62 inches 5'2" Weight 122.00 lb BMI (Body Mass Index) 22.3 kg/m2 BSA (Body Surface Area) 1.55 m2 [place] body weight in kilograms 50 O2 % BldC Oximetry 94 % 01/03/2018 BP Systolic Sitting Left Arm 146 mmHg BP Diastolic Sitting Left Arm 64 mmHg Heart Rate 60 /min Respiratory Rate 16 /min Height 62 inches 5'2" Weight 123.00 lb BMI (Body Mass Index) 22.5 kg/m2 BSA (Body Surface Area) 1.55 m2 [place] body weight in kilograms 50 10/03/2017 BP Systolic Sitting Left Arm 142 mmHg BP Diastolic Sitting Left Arm 80 mmHg Heart Rate 60 /min Respiratory Rate 16 /min Height 62 inches 5'2" Weight 118.00 lb BMI (Body Mass Index) 21.6 kg/m2 BSA (Body Surface Area) 1.53 m2 [place] body weight in kilograms 50 03/31/2017 BP Systolic Sitting Left Arm 140 mmHg BP Diastolic Sitting Left Arm 64 mmHg Heart Rate 62 /min Respiratory Rate 16 /min Height 62 inches 5'2" Weight 123.00 lb BMI (Body Mass Index) 22.5 kg/m2 BSA (Body Surface Area) 1.55 m2 [place] body weight in kilograms 50 02/08/2017 BP Systolic Sitting Left Arm 187 mmHg BP Diastolic Sitting Left Arm 64 mmHg 01/26/2017 BP Systolic Sitting Left Arm 132 mmHg BP Diastolic Sitting Left Arm 66 mmHg Heart Rate 68 /min Respiratory Rate 16 /min Height 62 inches 5'2" Weight 129.00 lb BMI (Body Mass Index) 23.6 kg/m2 BSA (Body Surface Area) 1.59 m2 [place] body weight in kilograms 50 01/19/2017 BP Systolic Sitting Right Arm 124 mmHg BP Diastolic Sitting Right Arm 58 mmHg Heart Rate 74 /min Respiratory Rate 16 /min Height 62 inches 5'2" Weight 128.00 lb BMI (Body Mass Index) 23.4 kg/m2 BSA (Body Surface Area) 1.58 m2 [place] body weight in kilograms 50 05/03/2016 BP [...] Test Date Test Result H/L Range Note Order 01/08/2018 14 Day Cardiac Event <pending> Monitor Serum sodium 01/08/2018 Serum sodium 136 136-145 measurement measurement Serum or plasma urea 01/08/2018 Serum or plasma urea 15 7-18 nitrogen measurement nitrogen measurement (mass/vo (mass/volume) Serum or plasma 01/08/2018 Serum or plasma 82 74-106 glucose measurement glucose measurement (mass/volume) (mass/volume) Serum or plasma 01/08/2018 Serum or plasma 1.2 0.6-1.3 creatinine measurement creatinine measurement (mass/volum (mass/volume) Serum or plasma 01/08/2018 Serum or plasma 8.9 8.5-10.1 calcium measurement calcium measurement (mass/volume) (mass/volume) Serum carbon dioxide 01/08/2018 Serum carbon dioxide 26 21-32 measurement measurement RDW RBC Auto-Rto 01/08/2018 RDW RBC Auto-Rto 13.9 11.7-14.4 Potassium SerPl-sCnc 01/08/2018 Potassium SerPl-sCnc 4.8 3.5-5.1 GFR/Bsa pred.non black 01/08/2018 GFR/Bsa pred.non black 46 >60 SerPl MDRD-ArVRat SerPl MDRD-ArVRat GFR/Bsa pred.black 01/08/2018 GFR/Bsa pred.black 55 >60 SerPl MDRD-ArVRat SerPl MDRD-ArVRat Chloride SerPl-sCnc 01/08/2018 Chloride SerPl-sCnc 103 98-107 CBC 01/08/2018 White Blood Count 5.3 K/uL 3.1-10.7 1 Red Blood Count 3.52 M/uL Low 3.90-5.40 1 Hemoglobin 10.9 gm/dL Low 11.6-15.8 1 Hematocrit 33.4 % Low 36.0-46.1 1 Mean Cell Volume 94.9 fl 80.9-99.0 1 Mean Corpuscular HGB 31.0 pg 25.9-32.7 1 Mean Corpuscular HGB Conc 32.6 g/dL 30.8-34.3 1 Platelet Count 186 K/uL 155-360 1 Red Cell Distri Width %CV 13.9 % 11.7-14.4 1 Mean Platelet Volume 11.0 fL 8.9-12.4 1 Basic Metabolic Panel 01/08/2018 Glucose 82 mg/dL 74-106 1 BUN 15 mg/dL 7-18 1 Creatinine 1.2 mg/dL 0.6-1.3 1 Glom Filtration Rate, Estimate 46 mL/min >60 1 If 55 mL/min >60 1, 2 BUN/Creat 12.5 ratio 1 Sodium 136 mmol/L 136-145 1 Potassium 4.8 mmol/L 3.5-5.1 1 Chloride 103 mmol/L 98-107 1 Carbon Dioxide 26 mmol/L 21-32 1 Anion Gap 7 mEq/L Low 8-16 1 Calcium 8.9 mg/dL 8.5-10.1 1 Anion Gap SerPl-sCnc 01/08/2018 Anion Gap SerPl-sCnc 7 Low 8-16 Automated blood 01/08/2018 Automated blood 33.4 Low 36.0-46.1 hematocrit (volume hematocrit (volume fraction) fraction) Automated blood 01/08/2018 Automated blood platelet 186 155-360 platelet count count Automated blood 01/08/2018 Automated blood platelet 11.0 8.9-12.4 platelet mean volume mean volume measurement measurement Automated erythrocyte 01/08/2018 Automated erythrocyte 31.0 25.9-32.7 mean corpuscular mean corpuscular hemoglobin hemoglobin (mass per erythrocyte) Automated erythrocyte 01/08/2018 Automated erythrocyte 32.6 30.8-34.3 mean corpuscular mean corpuscular hemoglobin hemoglobin concentration measurement (mass/volume) Automated erythrocyte 01/08/2018 Automated erythrocyte 94.9 80.9-99.0 mean corpuscular volume mean corpuscular volume BUN/Creat SerPl 01/08/2018 BUN/Creat SerPl 12.5 Blood erythrocytes 01/08/2018 Blood erythrocytes 3.52 Low 3.90-5.40 automated count automated count (number/volume) (number/volume) Blood hemoglobin 01/08/2018 Blood hemoglobin 10.9 Low 11.6-15.8 measurement measurement (mass/volume) (mass/volume) Blood leukocytes 01/08/2018 Blood leukocytes 5.3 3.1-10.7 automated count automated count (number/volume) (number/volume) RDW RBC Auto 01/07/2018 RDW RBC Auto 48.1 High 3-47 Neutrophils/leuk NFr 01/07/2018 Neutrophils/leuk NFr Bld 63.1 40.4-72.8 Bld Auto Auto Neutrophils # Bld Auto 01/07/2018 Neutrophils # Bld Auto 4.48 1.8-7.0 Monocytes/leuk NFr Bld 01/07/2018 Monocytes/leuk NFr Bld 15.1 High 4.3- 13.2 Auto Auto Lymphocytes/leuk NFr 01/07/2018 Lymphocytes/leuk NFr Bld 19.7 Low 20.0- 42.0 Bld Auto Auto Eosinophil/leuk NFr Bld 01/07/2018 Eosinophil/leuk NFr Bld 2.0 0.0-6.6 Auto Auto Blood monocytes 01/07/2018 Blood monocytes 1.07 High 0.3-0.9 automated count automated count (number/volume) (number/volume) Basophils/leuk NFr Bld 01/07/2018 Basophils/leuk NFr Bld 0.1 0.0-1.1 Auto Auto Automated blood 01/07/2018 Automated blood 1.40 1.0-4.0 lymphocyte count lymphocyte count (number/volume) (number/volume) Automated blood 01/07/2018 Automated blood 0.14 0.0-0.5 eosinophil count eosinophil count Automated blood 01/07/2018 Automated blood basophil 0.01 0.0-0.1 basophil count count (count/volume) (count/volume) Basic Metabolic Panel 01/07/2018 Glucose 108 mg/dL High 74-106 1 BUN 21 mg/dL High 7-18 1 Creatinine 1.4 mg/dL High 0.6-1.3 1 Glom Filtration Rate, Estimate 38 mL/min >60 1 If 46 mL/min >60 1, 3 BUN/Creat 15.0 ratio 1 Sodium 130 mmol/L Low 136-145 1 Potassium 5.0 mmol/L 3.5-5.1 1 Chloride 97 mmol/L Low 98-107 1 Carbon Dioxide 26 mmol/L 21-32 1 Anion Gap 7 mEq/L Low 8-16 1 Calcium 8.9 mg/dL 8.5-10.1 1 Laboratory test finding 01/07/2018 Magnesium 2.0 mg/dL 1.8-2.4 1 CBS W/Automated Diff 01/07/2018 White Blood Count 7.1 K/uL 3.1-10.7 1 Red Blood Count 3.71 M/uL Low 3.90-5.40 1 Hemoglobin 11.4 gm/dL Low 11.6-15.8 1 Hematocrit 35.6 % Low 36.0-46.1 1 Mean Cell Volume 96.0 fl 80.9-99.0 1 Mean Corpuscular HGB 30.7 pg 25.9-32.7 1 Mean Corpuscular HGB Conc 32.0 g/dL 30.8-34.3 1 Platelet Count 192 K/uL 155-360 1 Red Cell Distri Width SD 48.1 fl High 3-47 1 Red Cell Distri Width %CV 14.2 % 11.7-14.4 1 Mean Platelet Volume 10.4 fL 8.9-12.4 1 Neut% 63.1 % 40.4-72.8 1 Lymph % 19.7 % Low 20.0-42.0 1 [place] % 15.1 % High 4.3-13.2 1 Eo% 2.0 % 0.0-6.6 1 Bas% 0.1 % 0.0-1.1 1 Neut# 4.48 K/uL 1.8-7.0 1 Lymph # 1.40 K/uL 1.0-4.0 1 [place] # 1.07 K/uL High 0.3-0.9 1 Eos # 0.14 K/uL 0.0-0.5 1 Baso # 0.01 K/uL 0.0-0.1 1 Laboratory test finding 01/06/2018 Thyroid Stim 2.80 uIU/mL 0.30-4.20 1 Hormone Aot Request 01/06/2018 Aot Request Test(s) added 1, 4 Tests to be added: FREE T4 1 * Miscellaneous studies 01/06/2018 * Miscellaneous studies Test(s) added (set) (set) Aot Request 01/06/2018 Aot Request Test(s) added 1, 5 Tests to be added: PRO BNP,CPK,CRP, <SEE NOTE> 1, 6 Comprehensive Metabolic Panel 01/06/2018 Glucose 146 mg/dL High 74-106 1 BUN 23 mg/dL High 7-18 1 Creatinine 1.6 mg/dL High 0.6-1.3 1 Glom Filtration Rate, Estimate 33 mL/min >60 1 If 40 mL/min >60 1, 7 BUN/Creat 14.3 ratio 1 Sodium 132 mmol/L Low 136-145 1 Potassium 4.7 mmol/L 3.5-5.1 1 Chloride 100 mmol/L 98-107 1 Carbon Dioxide 23 mmol/L 21-32 1 Anion Gap 9 mEq/L 8-16 1 Calcium 8.8 mg/dL 8.5-10.1 1 Total Protein 7.8 g/dL 6.4-8.2 1 Albumin 3.9 g/dL 3.4-5.0 1 Globulin 3.9 g/dL 1.9-4.3 1 Alb/Glob 1.0 ratio 1 Bilirubin,Total 0.5 mg/dL 0.2-1.0 1 Sgot/Ast 29 U/L 15-37 1 SGPT/Alt 34 U/L 12-78 1 Alkaline Phosphatase 91 U/L 45-117 1 Laboratory test finding 01/06/2018 Magnesium 1.6 mg/dL Low 1.8-2.4 1 CK 44 U/L 26-192 1 NT-proBNP 4481.0 pg/mL High <450 1 Troponin-I < 0.015 ng/mL 1, 8 Free T4 1.31 ng/dL 0.76-1.46 1 C-Reactive Protein,Quant 5.1 mg/L High <3.0 1 Alt SerPl-cCnc 01/06/2018 Alt SerPl-cCnc 34 12-78 Albumin/Glob SerPl 01/06/2018 Albumin/Glob SerPl 1.0 Globulin Ser 01/06/2018 Globulin Ser 3.9 1.9-4.3 Calc-mCnc Calc-mCnc Serum or plasma 01/06/2018 Serum or plasma 3.9 3.4-5.0 albumin measurement albumin measurement (mass/volume) (mass/volume) Serum or plasma 01/06/2018 Serum or plasma 91 45-117 alkaline phosphatase alkaline phosphatase measurement ( measurement (enzymatic activity/volume) Serum or plasma 01/06/2018 Serum or plasma 29 15-37 aspartate aspartate aminotransferase aminotransferase measure measurement (enzymatic activity/volume) Serum or plasma 01/06/2018 Serum or plasma 4481.0 High <450 natriuretic peptide B natriuretic peptide prohormone N B prohormone N-terminal measurement (mass/volume) Serum or plasma 01/06/2018 Serum or plasma 7.8 6.4-8.2 protein measurement protein measurement (mass/volume) (mass/volume) Serum or plasma total 01/06/2018 Serum or plasma 0.5 0.2-1.0 bilirubin measurement total bilirubin (mass/ measurement (mass/volume) Urine Culture 01/06/2018 Urine Culture ESCHERICHIA 1, 9 COLI Quantity > 100,000 CFU/mL 1, 10 Urine Culture STREP. AGALACTIA <SEE NOTE> 1, 11 Quantity 50,000 - 100,000 <SEE NOTE> 1, 12 Recommended Therapy: PENICILLIN OR AM <SEE NOTE> 1, 13 Ua RFX Micro & Culture II 01/06/2018 Urine Color YELLOW Yellow 1 Urine Clarity CLOUDY Clear 1 Urine Glucose - Dipstick NEGATIVE mg/dL Negative 1 Urine Bilirubin - Dipstick NEGATIVE Negative 1 Urine Ketone NEGATIVE mg/dL Negative 1 Urine Specific [place] 1.010 1.010-1.030 1 Urine Blood SMALL Negative 1 Urine PH 6.0 Low 6.5-7.5 1 Urine Protein - Dipstick NEGATIVE mg/dL Negative 1 Urine Urobilinogen - Dipstick 0.2 E.U./dL 0.2-1.0 1 Urine Nitrite - Dipstick NEGATIVE Negative 1 Urine Leuk Esterase LARGE Negative 1 Urine RBC 0-2 rbc/hpf 0-2 1 Urine WBC 30-50 wbc/hpf High 0-7 1 Urine Epithelial Cells FEW /lpf None Seen 1 Urine Bacteria MODERATE None Seen 1 Source: URINE, CLEAN CAT <SEE NOTE> 1, 14 Escherichia Coli 01/06/2018 Nitrofurantoin <=16 1 Trimethoprim/Sulfamethoxazole <=20 1 Ampicillin >=32 1 Cefazolin 8 1 Ampicillin/Sulbactam >=32 1 Ciprofloxacin <=0.25 1 Piperacillin/Tazobactam 16 1 Ceftazidime <=1 1 Ceftriaxone <=1 1 Cefepime <=1 1 Levofloxacin <=0.12 1 Imipenem <=0.25 1 Gentamicin <=1 1 Tobramycin <=1 1 Strep. Agalactiae (Beta GRP B) 01/06/2018 Penicillin G <=0.06 1 Tetracycline >=16 1 Trimethoprim/Sulfamethoxazole <=10 1 Ampicillin <=0.25 1 Levofloxacin 1 1 Ceftriaxone <=0.12 1 Vancomycin 0.5 1 Bacteria detection in 01/06/2018 Bacteria detection in Moderate High None Seen urine sediment by urine sediment by light micr light microscopy Color Ur 01/06/2018 Color Ur Yellow Yellow Epithelial cells 01/06/2018 Epithelial cells Few None Seen detection in urine detection in urine sediment by li sediment by light microscopy Ketones Ur 01/06/2018 Ketones Ur Negative Negative Strip.auto-mCnc Strip.auto-mCnc Leukocyte esterase Ur 01/06/2018 Leukocyte esterase Ur Large High Negative Ql Strip.auto Ql Strip.auto Nitrite Ur Ql 01/06/2018 Nitrite Ur Ql Negative Negative Strip.auto Strip.auto Prot Ur 01/06/2018 Prot Ur Negative Negative Strip.auto-mCnc Strip.auto-mCnc Specific gravity of 01/06/2018 Specific gravity of 1.010 1.010-1.030 Urine by Automated Urine by Automated test strip test strip Urine appearance 01/06/2018 Urine appearance Cloudy Clear determination determination Urine glucose 01/06/2018 Urine glucose Negative Negative measurement by measurement by automated test strip automated test strip (mass/volume) Urine hemoglobin 01/06/2018 Urine hemoglobin Small High Negative detection by automated detection by automated test strip test strip Urine total bilirubin 01/06/2018 Urine total bilirubin Negative Negative detection by automated detection by automated test test strip Urobilinogen Ur 01/06/2018 Urobilinogen Ur 0.2 0.2-1.0 Strip-aCnc Strip-aCnc pH Ur Strip.auto 01/06/2018 pH Ur Strip.auto 6.0 Low 6.5-7.5 Serum or plasma 10/03/2017 Serum or plasma 180 High <150 triglyceride triglyceride measurement (mass/vol measurement (mass/volume) Serum or plasma 10/03/2017 Serum or plasma 190 <200 cholesterol cholesterol measurement (mass/volu measurement (mass/volume) CBS W/Automated Diff 10/03/2017 White Blood Count 5.4 K/uL 3.1-10.7 15 Red Blood Count 4.33 M/uL 3.90-5.40 15 Hemoglobin 12.9 gm/dL 11.6-15.8 15 Hematocrit 40.1 % 36.0-46.1 15 Mean Cell Volume 92.6 fl 80.9-99.0 15 Mean Corpuscular HGB 29.8 pg 25.9-32.7 15 Mean Corpuscular HGB Conc 32.2 g/dL 30.8-34.3 15 Platelet Count 214 K/uL 155-360 15 Red Cell Distri Width SD 47.3 fl High 3-47 15 Red Cell Distri Width %CV 14.1 % 11.7-14.4 15 Mean Platelet Volume 9.5 fL 8.9-12.4 15 Neut% 52.1 % 40.4-72.8 15 Lymph % 23.3 % 20.0-42.0 15 [place] % 17.6 % High 4.3-13.2 15 Eo% 6.3 % 0.0-6.6 15 Bas% 0.7 % 0.0-1.1 15 Neut# 2.83 K/uL 1.8-7.0 15 Lymph # 1.27 K/uL 1.0-4.0 15 [place] # 0.96 K/uL High 0.3-0.9 15 Eos # 0.34 K/uL 0.0-0.5 15 Baso # 0.04 K/uL 0.0-0.1 15 Comprehensive Metabolic Panel 10/03/2017 Glucose 101 mg/dL 74-106 15 BUN 25 mg/dL High 7-18 15 Creatinine 1.4 mg/dL High 0.6-1.3 15 Glom Filtration Rate, Estimate 38 mL/min >60 15 If 46 mL/min >60 15, 16 BUN/Creat 17.8 ratio 15 Sodium 139 mmol/L 136-145 15 Potassium 4.7 mmol/L 3.5-5.1 15 Chloride 107 mmol/L 98-107 15 Carbon Dioxide 23 mmol/L 21-32 15 Anion Gap 9 mEq/L 8-16 15 Calcium 9.2 mg/dL 8.5-10.1 15 Total Protein 8.6 g/dL High 6.4-8.2 15 Albumin 3.9 g/dL 3.4-5.0 15 Globulin 4.7 g/dL High 1.9-4.3 15 Alb/Glob 0.8 ratio 15 Bilirubin,Total 0.5 mg/dL 0.2-1.0 15 Sgot/Ast 27 U/L 15-37 15 SGPT/Alt 24 U/L 12-78 15 Alkaline Phosphatase 91 U/L 45-117 15 Reflex add FT3? Y 15 Reflex add FT4? Y 15 LDL Cholesterol Profile 10/03/2017 Cholesterol 190 mg/dL <200 15, 17 Triglycerides 180 mg/dL High <150 15, 18 HDL Cholesterol 46 mg/dL >40 15, 19 LDL-Cholesterol 108 mg/dL < 100 15, 20 Reflex add FT3? Y 15 Reflex add FT4? Y 15 Magnesium 10/03/2017 Magnesium 1.9 mg/dL 1.8-2.4 15 Reflex add FT3? Y 15 Reflex add FT4? Y 15 TSH Reflex FT4 And/Or FT3 10/03/2017 Thyroid Stim Hormone 2.30 uIU/mL 0.30-4.20 15 Reflex add FT3? Y 15 Reflex add FT4? Y 15 Serum or plasma 10/03/2017 Serum or plasma 46 >40 cholesterol in HDL cholesterol in HDL measurement (ma measurement (mass/volume) Serum or plasma 10/03/2017 Serum or plasma 108 < 100 cholesterol in LDL cholesterol in LDL measurement by measurement by calculation (mass/volume) Monocytes # Bld 01/09/2017 Monocytes # Bld Auto 0.93 High 0.3-0.9 Auto Monocytes/leuk NFr 01/09/2017 Monocytes/leuk NFr 12.6 4.3-13.2 Bld Auto Bld Auto Neutrophils # Bld 01/09/2017 Neutrophils # Bld 4.86 1.8-7.0 Auto Auto Neutrophils/leuk 01/09/2017 Neutrophils/leuk NFr 65.7 40.4-72.8 NFr Bld Auto Bld Auto PMV Bld Auto 01/09/2017 PMV Bld Auto 9.8 8.9-12.4 Platelets 01/09/2017 Platelets [#/volume] 218 150-400 [#/volume] in Blood in Blood by Automated by Automated count count Potassium 01/09/2017 Potassium SerPl-sCnc 3.9 3.5-5.1 SerPl-sCnc RBC # Bld Auto 01/09/2017 RBC # Bld Auto 3.37 Low 3.90-5.40 RDW RBC Auto 01/09/2017 RDW RBC Auto 43.2 3-47 RDW RBC Auto-Rto 01/09/2017 RDW RBC Auto-Rto 13.4 11.7-14.4 Sodium SerPl-sCnc 01/09/2017 Sodium SerPl-sCnc 141 136-145 Unloinc 01/09/2017 Unloinc See Note 21 WBC # Bld Auto 01/09/2017 WBC # Bld Auto 7.4 3.1-10.7 BUN SerPl-mCnc 01/09/2017 BUN SerPl-mCnc 5 7-18 BUN/Creat SerPl 01/09/2017 BUN/Creat SerPl 5.0 Basophils 01/09/2017 Basophils [#/volume] 0.02 0.0-0.1 [#/volume] in Blood in Blood by Automated by Automated count count Basophils/leuk NFr 01/09/2017 Basophils/leuk NFr 0.3 0.0-1.1 Bld Auto Bld Auto Co2 SerPl-sCnc 01/09/2017 Co2 SerPl-sCnc 27 21-32 Calcium SerPl-mCnc 01/09/2017 Calcium SerPl-mCnc 8.1 Low 8.5-10.1 Anion Gap 01/09/2017 Anion Gap SerPl-sCnc 7 Low 8-16 SerPl-sCnc Laboratory test 01/09/2017 Slide Review (SEE NOTE) 22, 23 finding CBS W/Automated 01/09/2017 White Blood Count 7.4 K/uL 3.1-10.7 22 Diff Red Blood Count 3.37 M/uL Low 3.90-5.40 22 Hemoglobin 10.2 gm/dL Low 11.6-15.8 22 Hematocrit 31.1 % Low 36.0-46.1 22 Mean Cell Volume 92.3 fl 80.9-99.0 22 Mean Corpuscular HGB 30.3 pg 25.9-32.7 22 Mean Corpuscular HGB Conc 32.8 g/dL 30.8-34.3 22 Platelet Count 218 K/uL 150-400 22 Red Cell Distri Width SD 43.2 fl 3-47 22 Red Cell Distri Width %CV 13.4 % 11.7-14.4 22 Mean Platelet Volume 9.8 fL 8.9-12.4 22 Neut% 65.7 % 40.4-72.8 22 Lymph % 16.4 % Low 20.0-42.0 22 [place] % 12.6 % 4.3-13.2 22 Eo% 5.0 % 0.0-6.6 22 Bas% 0.3 % 0.0-1.1 22 Neut# 4.86 K/uL 1.8-7.0 22 Lymph # 1.21 K/uL 1.0-4.0 22 [place] # 0.93 K/uL High 0.3-0.9 22 Eos # 0.37 K/uL 0.0-0.5 22 Baso # 0.02 K/uL 0.0-0.1 22 Basic Metabolic Panel 01/09/2017 Glucose 130 mg/dL High 74-106 22 BUN 5 mg/dL Low 7-18 22 Creatinine 1.0 mg/dL 0.6-1.3 22 Glom Filtration Rate, Estimate 57 mL/min >60 22 If >60 mL/min >60 22, 24 BUN/Creat 5.0 ratio 22 Sodium 141 mmol/L 136-145 22 Potassium 3.9 mmol/L 3.5-5.1 22 Chloride 107 mmol/L 98-107 22 Carbon Dioxide 27 mmol/L 21-32 22 Anion Gap 7 mEq/L Low 8-16 22 Calcium 8.1 mg/dL Low 8.5-10.1 22 Laboratory test 01/09/2017 Act Partial 78.1 seconds High 23.4-35.0 22, 25 finding Thrombo Time Chloride SerPl-sCnc 01/09/2017 Chloride 107 98-107 [facility] Creat SerPl-nc 01/09/2017 Creat SerPl-mCnc 1.0 0.6-1.3 Eosinophil # Bld 01/09/2017 Eosinophil # Bld 0.37 0.0-0.5 Auto Auto Eosinophil/leuk NFr 01/09/2017 Eosinophil/leuk 5.0 0.0-6.6 Bld Auto NFr Bld Auto GFR/Bsa pred.non 01/09/2017 GFR/Bsa pred.non 57 >60 black SerPl black SerPl MDRD-ArVRat MDRD-ArVRat Glucose 01/09/2017 Glucose 130 High 74-106 [Mass/volume] in [Mass/volume] in Serum or Plasma Serum or Plasma Hct VFr Bld Auto 01/09/2017 Hct VFr Bld Auto 31.1 Low 36.0-46.1 Hgb Bld-mCnc 01/09/2017 Hgb Bld-mCnc 10.2 Low 11.6-15.8 Lymphocytes 01/09/2017 Lymphocytes 1.21 1.0-4.0 [#/volume] in Blood [#/volume] in by Automated count Blood by Automated count Lymphocytes/leuk 01/09/2017 Lymphocytes/leuk 16.4 Low 20.0-42.0 NFr Bld Auto NFr Bld Auto MCH RBC Qn Auto 01/09/2017 MCH RBC Qn Auto 30.3 25.9-32.7 MCHC RBC Auto-mCnc 01/09/2017 MCHC RBC Auto-mCnc 32.8 30.8-34.3 MCV RBC Auto 01/09/2017 MCV RBC Auto 92.3 80.9-99.0 Laboratory test 01/08/2017 Legionella Negative Negative 22, 26 finding Antigen,Urine Laboratory test 01/08/2017 Act Partial > 150.0 seconds High 23.4-35.0 22 , 27 finding Thrombo Time Basic Metabolic 01/08/2017 Glucose 101 mg/dL 74-106 22 Panel BUN 4 mg/dL Low 7-18 22 Creatinine 1.0 mg/dL 0.6-1.3 22 Glom Filtration Rate, Estimate 57 mL/min >60 22 If >60 mL/min >60 22, 28 BUN/Creat 4.0 ratio 22 Sodium 145 mmol/L 136-145 22 Potassium 3.8 mmol/L 3.5-5.1 22 Chloride 114 mmol/L High 98-107 22 Carbon Dioxide 25 mmol/L 21-32 22 Anion Gap 6 mEq/L Low 8-16 22 Calcium 8.0 mg/dL Low 8.5-10.1 22 CBS W/Automated Diff 01/08/2017 White Blood Count 8.5 K/uL 3.1-10.7 22 Red Blood Count 2.95 M/uL Low 3.90-5.40 22 Hemoglobin 9.0 gm/dL Low 11.6-15.8 22 Hematocrit 27.7 % Low 36.0-46.1 22 Mean Cell Volume 93.9 fl 80.9-99.0 22 Mean Corpuscular HGB 30.5 pg 25.9-32.7 22 Mean Corpuscular HGB Conc 32.5 g/dL 30.8-34.3 22 Platelet Count 183 K/uL 150-400 22 Red Cell Distri Width SD 44.7 fl 3-47 22 Red Cell Distri Width %CV 13.5 % 11.7-14.4 22 Mean Platelet Volume 10.4 fL 8.9-12.4 22 Neut% 71.5 % 40.4-72.8 22 Lymph % 14.4 % Low 20.0-42.0 22 [place] % 9.4 % 4.3-13.2 22 Eo% 4.5 % 0.0-6.6 22 Bas% 0.2 % 0.0-1.1 22 Neut# 6.05 K/uL 1.8-7.0 22 Lymph # 1.22 K/uL 1.0-4.0 22 [place] # 0.80 K/uL 0.3-0.9 22 Eos # 0.38 K/uL 0.0-0.5 22 Baso # 0.02 K/uL 0.0-0.1 22 Laboratory test 01/08/2017 Act Partial 61.3 seconds High 23.4-35.0 22, 29 finding Thrombo Time Laboratory test 01/08/2017 Act Partial 85.3 seconds High 23.4-35.0 22 finding Thrombo Time Laboratory test 01/07/2017 Act Partial 143.6 seconds High 23.4-35.0 22, 30 finding Thrombo Time CBC 01/07/2017 White Blood Count 11.5 K/uL High 3.1-10.7 22 Red Blood Count 3.30 M/uL Low 3.90-5.40 22 Hemoglobin 10.2 gm/dL Low 11.6-15.8 22 Hematocrit 31.3 % Low 36.0-46.1 22 Mean Cell Volume 94.8 fl 80.9-99.0 22 Mean Corpuscular HGB 30.9 pg 25.9-32.7 22 Mean Corpuscular HGB Conc 32.6 g/dL 30.8-34.3 22 Platelet Count 193 K/uL 150-400 22 Red Cell Distri Width %CV 13.6 % 11.7-14.4 22 Mean Platelet Volume 10.8 fL 8.9-12.4 22 Protime 01/07/2017 Protime 16.3 seconds High 12.0-14.4 22 Inr 1.3 High 0.9-1.1 22, 31 Laboratory test 01/07/2017 Act Partial Thrombo 32.2 seconds 23.4-35.0 22 , 32 finding Time Prothrombin time 01/07/2017 Prothrombin time 16.3 High 12.0-14.4 Aot Request 01/07/2017 Aot Request Test(s) added 22, 33 Tests to be added: pro-BNP 22 * Miscellaneous studies 01/07/2017 * Miscellaneous Test(s) added (set) studies (set) CBC 01/07/2017 White Blood Count 10.1 K/uL 3.1-10.7 22 Red Blood Count 3.30 M/uL Low 3.90-5.40 22 Hemoglobin 10.0 gm/dL Low 11.6-15.8 22 Hematocrit 31.5 % Low 36.0-46.1 22 Mean Cell Volume 95.5 fl 80.9-99.0 22 Mean Corpuscular HGB 30.3 pg 25.9-32.7 22 Mean Corpuscular HGB Conc 31.7 g/dL 30.8-34.3 22 Platelet Count 174 K/uL 150-400 22 Red Cell Distri Width %CV 13.6 % 11.7-14.4 22 Mean Platelet Volume 10.7 fL 8.9-12.4 22 Basic Metabolic Panel 01/07/2017 Glucose 104 mg/dL 74-106 22 BUN 6 mg/dL Low 7-18 22 Creatinine 0.9 mg/dL 0.6-1.3 22 Glom Filtration Rate, Estimate >60 mL/min >60 22 If >60 mL/min >60 22, 34 BUN/Creat 6.6 ratio 22 Sodium 147 mmol/L High 136-145 22 Potassium 3.4 mmol/L Low 3.5-5.1 22 Chloride 118 mmol/L High 98-107 22 Carbon Dioxide 20 mmol/L Low 21-32 22 Anion Gap 9 mEq/L 8-16 22 Calcium 8.8 mg/dL 8.5-10.1 22 Serum or plasma 01/07/2017 Serum or plasma 6514.0 High <450 natriuretic peptide B natriuretic peptide B prohormone N prohormone N-terminal measurement (mass/volume) Laboratory test 01/07/2017 NT-proBNP 6514.0 pg/mL High <450 22 finding Laboratory test 01/07/2017 Magnesium 1.9 mg/dL 1.8-2.4 22 finding CBC 01/06/2017 White Blood Count 12.6 K/uL High 3.1-10.7 22 Red Blood Count 3.15 M/uL Low 3.90-5.40 22 Hemoglobin 9.7 gm/dL Low 11.6-15.8 22 Hematocrit 30.2 % Low 36.0-46.1 22 Mean Cell Volume 95.9 fl 80.9-99.0 22 Mean Corpuscular HGB 30.8 pg 25.9-32.7 22 Mean Corpuscular HGB Conc 32.1 g/dL 30.8-34.3 22 Platelet Count 142 K/uL Low 150-400 22 Red Cell Distri Width %CV 13.5 % 11.7-14.4 22 Mean Platelet Volume 10.5 fL 8.9-12.4 22 Stool bacteria 01/06/2017 Stool bacteria Organism: No identification by identification by Enteric Pathogens culture culture Isolated Stool Culture 01/06/2017 Stool Culture NO ENTERIC PATHO 22, 35 <SEE NOTE> . ................ <SEE NOTE> 22, 36 Note: INCLUDES TESTING <SEE NOTE> 22, 37 . PLESIOMONAS, CAM <SEE NOTE> 22, 38 . ................ <SEE NOTE> 22, 39 . YERSINIA AND VIB <SEE NOTE> 22, 40 . SHOULD BE REQUES <SEE NOTE> 22, 41 Shiga Toxin 1 Antigen Test not perform <SEE NOTE> 22, 42 Shiga Toxin 2 Antigen Test not perform <SEE NOTE> 22, 43 TSH SerPl-aCnc 01/06/2017 TSH [facility] 0.98 0.30-4.20 TSH Reflex FT4 And/Or FT3 01/06/2017 Thyroid Stim Hormone 0.98 uIU/mL 0.30-4.20 22 Reflex add FT3? Y 22 Reflex add FT4? Y 22 Magnesium 01/06/2017 Magnesium 1.7 mg/dL Low 1.8-2.4 22 Reflex add FT3? Y 22 Reflex add FT4? Y 22 Basic Metabolic Panel 01/06/2017 Glucose 94 mg/dL 74-106 22 BUN 12 mg/dL 7-18 22 Creatinine 1.0 mg/dL 0.6-1.3 22 Glom Filtration Rate, Estimate 57 mL/min >60 22 If >60 mL/min >60 22, 44 BUN/Creat 12.0 ratio 22 Sodium 144 mmol/L 136-145 22 Potassium 3.4 mmol/L Low 3.5-5.1 22 Chloride 115 mmol/L High 98-107 22 Carbon Dioxide 20 mmol/L Low 21-32 22 Anion Gap 9 mEq/L 8-16 22 Calcium 7.6 mg/dL Low 8.5-10.1 22 Reflex add FT3? Y 22 Reflex add FT4? Y 22 Bacteria Bld Aerobe 01/05/2017 Bacteria Bld Aerobe No Growth: Final Cult Cult Report Anaerobic blood 01/05/2017 Anaerobic blood No Growth: Final culture culture Report Blood Culture 01/05/2017 Blood Culture Aerobic NO GROWTH: FINAL , 45 <SEE NOTE> Blood Culture Anaerobic NO GROWTH: FINAL <SEE NOTE> , 46 Lactic Acid 01/05/2017 Lactic Acid 1.9 mmol/L 0.4-1.9 22 Lab Reflex >2.0 for Sepsis? Y 22 pH Ur Strip.auto 01/05/2017 pH Ur Strip.auto 5.5 Low 6.5-7.5 Urobilinogen Ur 01/05/2017 Urobilinogen Ur 0.2 0.2-1.0 Strip-aCnc Strip-aCnc Epithelial cells 01/05/2017 Epithelial cells Few None Seen [Presence] in Urine [Presence] in Urine sediment by L sediment by Light microscopy Ketones Ur 01/05/2017 Ketones Ur Negative Negative Strip.auto-mCnc Strip.auto-mCnc Leukocyte esterase Ur 01/05/2017 Leukocyte esterase Ur Moderate High Negative Ql Strip.auto Ql Strip.auto Color Ur 01/05/2017 Color Ur Yellow Yellow Bilirub Ur Ql 01/05/2017 Bilirub Ur Ql Negative Negative Strip.auto Strip.auto Bacteria [Presence] in 01/05/2017 Bacteria [Presence] in Very Few None Seen Urine sediment by Light Urine sediment by Light colby microscopy Amorphous sediment 01/05/2017 Amorphous sediment Very Few Negative [Presence] in Urine [Presence] in Urine sediment by sediment by Light microscopy Ua Routine 01/05/2017 Urine Color YELLOW Yellow 22 Urine Clarity CLEAR Clear 22 Urine Glucose - Dipstick NEGATIVE mg/dL Negative 22 Urine Bilirubin - Dipstick NEGATIVE Negative 22 Urine Ketone NEGATIVE mg/dL Negative 22 Urine Specific [place] <=1.005 Low 1.010-1.030 22 Urine Blood MODERATE Negative 22 Urine PH 5.5 Low 6.5-7.5 22 Urine Protein - Dipstick NEGATIVE mg/dL Negative 22 Urine Urobilinogen - Dipstick 0.2 E.U./dL 0.2-1.0 22 Urine Nitrite - Dipstick NEGATIVE Negative 22 Urine Leuk Esterase MODERATE Negative 22 Urine RBC 2-5 rbc/hpf 0-2 22 Urine WBC 0-2 wbc/hpf 0-7 22 Urine Epithelial Cells FEW /lpf None Seen 22 Urine Uric Acid Crystals FEW None Seen 22 Urine Bacteria VERY FEW None Seen 22 Urine Amorph Sediment VERY FEW Negative 22 Source: URINE, CLEAN CAT <SEE NOTE> 22, 47 Lactic Acid 01/05/2017 Lactic Acid 2.5 mmol/L High 0.4-1.9 22 Lab Reflex >2.0 for Sepsis? Y 22 Laboratory test finding 01/05/2017 Troponin-I 0.036 ng/mL 22, 48 Lactic Acid 01/05/2017 Lactic Acid 2.5 mmol/L High 0.4-1.9 22 Lab Reflex >2.0 for Sepsis? Y 22 Laboratory test 01/05/2017 Troponin-I 0.041 ng/mL 22, 49 finding Laboratory test 01/05/2017 C. Difficile Toxin NEGATIVE FOR C. 22, 50 finding A/B <SEE NOTE> Lactate 01/05/2017 Lactate 1.3 0.4-1.9 [Moles/volume] in [Moles/volume] in Serum or Plasma Serum or Plasma Lactic Acid 01/05/2017 Lactic Acid 1.3 mmol/L 0.4-1.9 22 Lab Reflex >2.0 for Sepsis? Y 22 Urine hemoglobin 01/05/2017 Urine hemoglobin Moderate High Negative detection by detection by automated test automated test strip strip Urine glucose 01/05/2017 Urine glucose Negative Negative measurement by measurement by automated test automated test strip strip (mass/volume) Urine appearance 01/05/2017 Urine appearance Clear Clear determination determination Uric acid crystals 01/05/2017 Uric acid crystals Few None Seen detection in urine detection in urine sediment by sediment by light microscopy Prot Ur 01/05/2017 Prot Ur Negative Negative Strip.auto-mCnc Strip.auto-mCnc Nitrite Ur Ql 01/05/2017 Nitrite Ur Ql Negative Negative Strip.auto Strip.auto Stool Culture 01/04/2017 Stool Culture NO ENTERIC 22, 51 PATHO <SEE NOTE> . ................ <SEE NOTE> 22, 52 Note: INCLUDES TESTING <SEE NOTE> 22, 53 . PLESIOMONAS, CAM <SEE NOTE> 22, 54 . ................ <SEE NOTE> , 55 . YERSINIA AND VIB <SEE NOTE> 22, 56 . SHOULD BE REQUES <SEE NOTE> 22, 57 Shiga Toxin 1 Antigen SHIGA TOXIN 1 NO <SEE NOTE> 22, 58 Shiga Toxin 2 Antigen SHIGA TOXIN 2 NO <SEE NOTE> 22, 59 Escherichia coli 01/04/2017 Escherichia coli Shiga Toxin 1 Shiga-like toxin 1 Shiga-like toxin 1 Not Detected detection detection Escherichia coli 01/04/2017 Escherichia coli See Note 60 Shiga-like toxin 2 Shiga-like toxin 2 detection detection Stool leukocytes 01/04/2017 Stool leukocytes None Seen detection by light detection by light microscopy microscopy Stool occult blood 01/04/2017 Stool occult blood Negative Negative Unloinc 01/04/2017 Unloinc Stool Alp SerPl-cCnc 01/04/2017 Alp SerPl-cCnc 70 45-117 Alt SerPl-cCnc 01/04/2017 Alt SerPl-cCnc 15 12-78 Albumin SerPl-mCnc 01/04/2017 Albumin SerPl-mCnc 3.9 3.4-5.0 Total Cells Counted 01/04/2017 Total Cells Counted 100 Bld Bld Prot SerPl-mCnc 01/04/2017 Prot SerPl-mCnc 7.8 6.4-8.2 Neuts Seg/leuk NFr Bld 01/04/2017 Neuts Seg/leuk NFr Bld 85 High 33-73 Manual Manual Neuts Band/leuk NFr 01/04/2017 Neuts Band/leuk NFr 5 0-8 Bld Manual Bld Manual Monocytes/100 01/04/2017 Monocytes/100 6 0-10 leukocytes in Blood by leukocytes in Blood by Manual count Manual count Lymphocytes/100 01/04/2017 Lymphocytes/100 3 Low 20-42 leukocytes in Blood by leukocytes in Blood by Manual coun Manual count Lipase SerPl-cCnc 01/04/2017 Lipase SerPl-cCnc 350 73-393 Globulin Ser Calc-mCnc 01/04/2017 Globulin Ser Calc-mCnc 3.9 1.9-4.3 Eosinophil % 01/04/2017 Eosinophil % 1 0-5 Blood platelet 01/04/2017 Blood platelet Normal adequacy detection by adequacy detection by light microsc light microscopy Blood anisocytosis 01/04/2017 Blood anisocytosis 1+ detection by light detection by light microscopy microscopy Bilirub SerPl-mCnc 01/04/2017 Bilirub SerPl-mCnc 0.6 0.2-1.0 Aspartate 01/04/2017 Aspartate 13 Low 15-37 aminotransferase aminotransferase [Enzymatic [Enzymatic activity/vol activity/volume] in Serum or Plasma Albumin/Glob SerPl 01/04/2017 Albumin/Glob SerPl 1.0 LDL Cholesterol 10/30/2014 Cholesterol 142 mg/dL < 200 61 Profile Triglycerides 156 mg/dL < 150 62 HDL Cholesterol 48 mg/dL > 40 63 LDL-Cholesterol 63 mg/dL < 100 64 Laboratory test finding 10/30/2014 Thyroid Stim Hormone [...] % 40.4-72.8 Lymph % 17.8 % 17.0-46.1 [place] % 10.9 % 4.3-13.2 Eo% 3.9 % 0.0-6.6 Bas% 0.4 % 0.0-1.1 Neut# 4.79 K/uL 1.0-7.0 Lymph # 1.27 K/uL Low 1.8-7.0 [place] # 0.78 K/uL 0.3-0.9 Eos # 0.28 K/uL 0.0-0.5 Baso # 0.03 K/uL 0.0-0.1 Basic Metabolic Panel 10/30/2014 Glucose 93 mg/dL 74-106 BUN 25 mg/dL High 7-18 Creatinine 1.1 mg/dL 0.6-1.3 Glom Filtration Rate, Estimate 51 mL/min >60 If >60 mL/min >60 65 BUN/Creat 22.7 ratio Sodium 141 mmol/L 136-145 [...] mg/dL 0.0-0.9 Sgot/Ast 13 U/L Low 15-37 66 SGPT/Alt 15 U/L 12-78 Alkaline Phosphatase 73 [...] test 08/13/2013 C-Reactive 17.20 mg/L High 0.00-3.00 67 finding Protein,Cardiac LDL Cholesterol 08/13/2013 Cholesterol 167 mg/dL 120-200 Profile Triglycerides 123 mg/dL 16-231 HDL Cholesterol 57 mg/dL 29-83 LDL-Cholesterol 85 mg/dL 62-185 Comprehensive Metabolic Panel 08/13/2013 Glucose 104 mg/dL 76-115 BUN 20 mg/dL 5-23 Creatinine 1.1 mg/dL 0.5-1.4 Glom Filtration Rate, Estimate 51 mL/min >60 If >60 mL/min >60 68 BUN/Creat 18.1 ratio Sodium 138 mmol/L 136-145 [...] mg/dL 29-83 LDL-Cholesterol 94 mg/dL 62-185 1 BRADYCARDIA 2 Note: Persistent reduction for 3 months or more in an eGFR <60 mL/min/1.73 m2 defines CKD. Patients with eGFR values >/=60 mL/min/1.73 m2 may also have CKD if evidence of persistent proteinuria is present. The original MDRD equation for estimated GFR is not valid for patients less than 18 years of age. Additional information may be found at [email or web address]. 3 Note: Persistent reduction for 3 months or more in an eGFR <60 mL/min/1.73 m2 defines CKD. Patients with eGFR values >/=60 mL/min/1.73 m2 may also have CKD if evidence of persistent proteinuria is present. The original MDRD equation for estimated GFR is not valid for patients less than 18 years of age. Additional information may be found at [email or web address]. 4 Tests: FREE T4 Instructions: 5 CPK ALREADY DONE Tests: PRO BNP,CPK,CRP,MAGNESIUM Instructions: 6 PRO BNP,CPK,CRP,MAGNESIUM 7 Note: Persistent reduction for 3 months or more in an eGFR <60 mL/min/1.73 m2 defines CKD. Patients with eGFR values >/=60 mL/min/1.73 m2 may also have CKD if evidence of persistent proteinuria is present. The original MDRD equation for estimated GFR is not valid for patients less than 18 years of age. Additional information may be found at [email or web address].org. 8 0.0 - 0.045 ng/mL: Normal 0.046 - 0.5 ng/mL: Suggestive 0.6 - 1.5 ng/mL: Consistent 9 ESCHERICHIA COLI 10 > 100,000 CFU/mL 11 STREP. AGALACTIAE (BETA GRP B) 12 50,000 - 100,000 CFU/mL 13 PENICILLIN OR AMPICILLIN. 14 URINE, CLEAN CATCH 15 I48.0 16 Note: Persistent reduction for 3 months or more in an eGFR <60 mL/min/1.73 m2 defines CKD. Patients with eGFR values >/=60 mL/min/1.73 m2 may also have CKD if evidence of persistent proteinuria is present. The original MDRD equation for estimated GFR is not valid for patients less than 18 years of age. Additional information may be found at [email or web address]. 17 Reference Guidelines*: Desirable: ........... < 200 mg/dL Borderline High: ..... 200-239 mg/dL High: ................ >=240 mg/dL * The National Cholesterol Education Program (NCEP) 18 Reference Guidelines*: Normal: ............. < 150 mg/dL Borderline High: .... 150-199 mg/dL High: ............... 200-499 mg/dL Very High: .......... > 500 mg/dL * Source: National Cholesterol Education Program (NCEP) 19 Reference Guidelines*: Low HDL: ..... < 40 mg/dL Normal: ..... 40-60 mg/dL Desirable: ... > 60 mg/dL *The National Cholesterol Education Program(NCEP) 20 Reference Guidelines*: Optimal:........... <100 mg/dL Near Optimal....... 100-129 mg/dL Borderline High.... 130-159 mg/dL High............... 160-189 mg/dL Very High.......... >=190 mg/dL * Source: National Cholesterol Education Program (NCEP) 21 Instrument flagged sample for slide review. Less than 10% Bands seen, no other immature WBC's seen. RBC morphology essentially normal. Platelet estimate= Normal 22 ACUTE COLITIS 23 Instrument flagged sample for slide review. Less than 10% Bands seen, no other immature WBC's seen. RBC morphology essentially normal. Platelet estimate=Normal 24 Note: Persistent reduction for 3 months or more in an eGFR <60 mL/min/1.73 m2 defines CKD. Patients with eGFR values >/=60 mL/min/1.73 m2 may also have CKD if evidence of persistent proteinuria is present. The original MDRD equation for estimated GFR is not valid for patients less than 18 years of age. Additional information may be found at [email or web address].org. 25 Is patient on heparin protocol? Y Is patient on anticoagulants? Heparin 26 Presumptive negative for L. pneumophila serogroup 1 antigen in urine, suggesting no recent or current infection. Legionnaires' disease cannot be ruled out since other serogroups and species may also cause disease. Performed at: [address] [id number] Shipping And Receiving Specialist: Paramjit Billy MD, Phone: [phone] CHECKED CALLED APTT TO DANIE Nguyen RN AT [phone] 01/08/17 by [email or web address].[email or web address] Is patient on heparin protocol? Y OK To Combine Draws Per RN 28 Note: Persistent reduction for 3 months or more in an eGFR <60 mL/min/1.73 m2 defines CKD. Patients with eGFR values >/=60 mL/min/1.73 m2 may also have CKD if evidence of persistent proteinuria is present. The original MDRD equation for estimated GFR is not valid for patients less than 18 years of age. Additional information may be found at [email or web address]. 29 Is patient on heparin protocol? Y Is patient on anticoagulants? Heparin 30 Is patient on heparin protocol? Y Is patient on anticoagulants? Heparin CALLED PTT TO NAYA Stoll AT [phone] 01/08/17 by LAB.[email or web address] 31 THERAPEUTIC INR RANGE: 2.0 - 3.0 DVT, Pulmonary embolus, prophylaxis against venous thrombosis or systemic embolization in high risk patients. 2.5 - 3.5 Mechanical heart valves 32 Is patient on heparin protocol? Y Is patient on anticoagulants? Heparin 33 Tests: pro-BNP Instructions: 34 Note: Persistent reduction for 3 months or more in an eGFR <60 mL/min/1.73 m2 defines CKD. Patients with eGFR values >/=60 mL/min/1.73 m2 may also have CKD if evidence of persistent proteinuria is present. The original MDRD equation for estimated GFR is not valid for patients less than 18 years of age. Additional information may be found at [email or web address]. 35 NO ENTERIC PATHOGENS ISOLATED 36 ................................................... 37 INCLUDES TESTING FOR SALMONELLA, SHIGELLA, AEROMONAS, 38 PLESIOMONAS, CAMPYLOBACTER, AND E. COLI 0157:H7 39 ................................................... 40 YERSINIA AND VIBRIO ARE NOT ROUTINELY SCREENED FOR AND 41 SHOULD BE REQUESTED SEPARATELY SCANT ENTERIC LJ 42 Test not performed INSUFFICENT GROWTH TO PERFORM TESTING 43 Test not performed INSUFFICENT GROWTH TO PERFORM TESTING 44 Note: Persistent reduction for 3 months or more in an eGFR <60 mL/min/1.73 m2 defines CKD. Patients with eGFR values >/=60 mL/min/1.73 m2 may also have CKD if evidence of persistent proteinuria is present. The original MDRD equation for estimated GFR is not valid for patients less than 18 years of age. Additional information may be found at [email or web address]. 45 NO GROWTH: FINAL REPORT 46 NO GROWTH: FINAL REPORT 47 URINE, CLEAN CATCH 48 0.0 - 0.045 ng/mL: Normal 0.046 - 0.5 ng/mL: Suggestive 0.6 - 1.5 ng/mL: Consistent 49 0.0 - 0.045 ng/mL: Normal 0.046 - 0.5 ng/mL: Suggestive 0.6 - 1.5 ng/mL: Consistent 50 NEGATIVE FOR C. DIFFICILE TOXIN A/B. Method: Alere Tox A/B Quik Chek Rapid Immunoassay CORRELATE RESULTS WITH CLINICAL CONDITION. 51 NO ENTERIC PATHOGENS ISOLATED 52 ................................................... 53 INCLUDES TESTING FOR SALMONELLA, SHIGELLA, AEROMONAS, 54 PLESIOMONAS, CAMPYLOBACTER, AND E. COLI 0157:H7 55 ................................................... 56 YERSINIA AND VIBRIO ARE NOT ROUTINELY SCREENED FOR AND 57 SHOULD BE REQUESTED SEPARATELY 58 SHIGA TOXIN 1 NOT DETECTED 59 SHIGA TOXIN 2 NOT DETECTED Method: ImmunoCard STAT/EHEC Rapid Immunochromatographic Assay 60 Shiga Toxin 2 Not Detected Method: ImmunoCard Stat/Ehec Rapid Immunochromatographic Assay 61 Reference Guidelines*: Desirable: ........... < 200 mg/dL Borderline High: ..... 200-239 mg/dL High: ................ >=240 mg/dL * The National Cholesterol Education Program (NCEP) 62 Reference Guidelines*: Normal: ............. < 150 mg/dL Borderline High: .... 150-199 mg/dL High: ............... 200-499 mg/dL Very High: .......... > 500 mg/dL * Source: National Cholesterol Education Program (NCEP) 63 Reference Guidelines*: Low HDL: ..... < 40 mg/dL Normal: ..... 40-60 mg/dL Desirable: ... > 60 mg/dL *The National Cholesterol Education Program(NCEP) 64 Reference Guidelines*: Optimal:........... <100 mg/dL Near Optimal....... 100-129 mg/dL Borderline High.... 130-159 mg/dL High............... 160-189 mg/dL Very High.......... >=190 mg/dL * Source: National Cholesterol Education Program (NCEP) 65 Note: Persistent reduction for 3 months or more in an eGFR <60 mL/min/1.73 m2 defines CKD. Patients with eGFR values >/=60 mL/min/1.73 m2 may also have CKD if evidence of persistent proteinuria is present. The original MDRD equation for estimated GFR is not valid for patients less than 18 years of age. Additional information may be found at www.[email or web address]. 66 Values below the stated reference ranges of AST and ALT can be seen in normal populations. Clinical correlation is suggested. 67 Relative Risk for Future Cardiovascular Event Low <1.00 Average 1.00 - 3.00 High >3.00 68 Note: Persistent reduction for 3 months or [...] [email or web address]. Procedures Date CPT Code Description Status 01/03/2018 16778 EKG-Tracing And Report Completed 10/03/2017 42044 EKG-Tracing And Report Completed 03/31/2017 66164 EKG-Tracing And Report Completed 01/26/2017 88865 EKG-Tracing And Report Completed 01/19/2017 93358 EKG-Tracing And Report Completed 01/08/2017 05326 EKG Interpretation And Report Only Completed 01/07/2017 67810 EKG Interpretation And Report Only Completed 01/05/2017 12184 Echocardiogram Complete Completed 01/04/2017 55216 EKG Interpretation And Report Only Completed 10/29/2015 93506 EKG-Tracing And Report Completed 10/20/2014 69845 EKG-Tracing And Report Completed 10/22/2012 06993 EKG-Tracing And Report Completed 07/22/2012 71859 Echocardiogram Complete Completed Encounters Type Date Location Provider CPT E/M Dx Office Visit 01/12/2018 1:30p [place] [address] I48.0 I49.5 Z79.01 I10 I71.2 Office Visit 01/03/2018 10:15a [place] [address] I48.0 I71.2 I10 Z79.01 Office Visit 10/03/2017 9:30a [place] [address] I48.0 I71.2 I10 R63.3 Office Visit 03/31/2017 9:40a Cardiology Office KELLE Whitley 25353 I48.0 I71.2 I10 E78.2 Office Visit 02/08/2017 1:40p [place] [address] Z01.30 Office Visit 01/26/2017 10:00a [place] [address] I48.0 Z79.01 I71.2 I10 Office Visit 01/19/2017 3:00p [place] [address] I48.91 Office Visit 01/05/2017 2:28p [place] [address] I48.91 Office Visit 05/03/2016 9:40a Cardiology Office NICK Franklin 49095 I10 I71.2 E78.2 Office Visit 10/29/2015 10:00a [place] [address] I10 I71.2 Office Visit 10/20/2014 1:30p Cardiology Office NICK Franklin 68778 441.2 401.1 272.0 Office Visit 02/17/2014 10:40a [place] [address] 441.2 401.1 272.0 Office Visit 08/19/2013 10:40a [place] [address] 441.2 401.1 272.0 Office Visit 02/15/2013 9:40a [place] [address] 441.2 401.1 272.0 Office Visit 12/11/2012 11:00a [place] [address] 441.2 401.1 272.0 Office Visit 10/22/2012 10:00a [place] [address] 441.2 401.1 272.0 Office Visit 07/23/2012 1:45p [place] [address] 441.2 Plan of Care Future Appointment(s):02/14/2018 1:15 pm - Gayla Negron MD at Cardiology Ffiwds1107/03/2018 10:00 am - Gayla Negron MD at Cardiology [id number]/12/2018 - Gayla Negron MDI48.0 Paroxysmal atrial fibrillationComments:No recent recurrences but needs to be off Amiodarone given bradycardia. TSH was normal 01/06. [id number] Sick sinus syndromeComments:Sinus pauses > 3 seconds correlating with her lightheadedness. I have shown her the recording, explained in detailed length her diagnosis, prognosis and complications. She verbalized understanding. Declined further informational literature. I explained to her that the only treatment for her problemat current is a permanent pacemaker. We went over the indications, contraindications, complications and consequences of having pacemaker device. She expressed that at current she does not wish to proceed with implant but she will think about it. Her main concern is a fear of complications, procedure itself and living with device due to her anxiety.I asked her to consider this and discuss with family if necessary. 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 No side effects or bleeding reported.I10 Essential (primary) hypertensionComments:Well controlled on today's visit despite stopping Lisinopril while in hospital. Will not make any further adjustments at this timeI71.2 Thoracic aortic aneurysm, without ruptureComments:4.4 cm on last Echo. Declined follow ups and any possible intervention.AllFollow up:1 month.
--- OUTSIDE RECORDS SUMMARY | 2018-02-06 15:41 | XMS REPORT ---
:1935 External Reference #:[id number] Author Organization [facility] Address [address], [address] [place] [address] Phone [phone] Care Team Providers Name Role Phone Taj Vargas MD Care Team Information Geriatric Physical Therapist Unavailable Taj Vargas MD Primary Care Physician Unavailable Payers Type Date Identification Numbers Payment Provider Subscriber Medicare Primary Policy Number: [id number] Medicare Cyndi Spears PayID: [id number] [address] [place] [address] [facility] Part B Policy Number: [id number] [facility] Cyndi Spears PayID: [id number] [address] [place] [address] Problems Date Description Provider Status Onset: 10/22/2012 [...] Active Tablets 10mg 90tabs 1 by mouth 2017 every day MD Jamil Eliquis 03/28/ Active Tablets 2.5mg 180tab 1 tab by Gayla 2016 s mouth MD Jamil twice daily Pravachol / Active Tablets 40mg 90tabs 1 po qd Unknown 0000 Tylenol Extra / Active Tablets 500mg 1-2 tabs Unknown Strength 0000 by mouth every 4 hours as needed Amlodipine / Active Tablets 5mg 1 by mouth Unknown Besylate 0000 every day Lisinopril 02/08/ Hx Tablets 10mg 90tabs once daily Dumfries2016 - MD Jamil 2016 Lisinopril 02/08/ Hx Tablets 5mg 90tabs 1 by mouth Dumfries2016 - every day MD Jamil 2017 Amiodarone HCL 01/31/ Hx Tablets 200mg 180tab 1 to 2 Viktoriya 2016 s tablets by Simonetta mouth Santana, every day [employer], [employer] as directed Lisinopril-Hydr 05/16/ Hx Tablets 10-12.5mg 90tabs take 1 Viktoriya ochlorothiazide 2013 tablet by Simonetta mouth once Santana, daily MSN, [employer] Carvedilol 10/22/ Hx Tablets 3.125mg 180tab 1 tab by I10 Viktoriya 2012 s mouth Simonetta twice a Santana, day MSN, [employer] Lisinopril/Hydr / Hx Tablets 10-12.5mg 90tabs 1 [...] tablets Viktoriya 0000 - a day for Simonetta 01/31/ three days Esther, 2016 and then MSN, [employer] go back to 1 tablet per day therafter. Metronidazole 00// Hx Tablets 500mg 1 by mouth Unknown 0000 three times a day Eliquis / Hx Tablets 2.5mg 1 tab by Dumfries 0000 - mouth MD Jamil 03/28/ 2017 daily Furosemide / Hx Tablets 40mg 1 by mouth Unknown 0000 every day If Needed Vital Signs Date Vital Result Comment 01/03/2018 BP Systolic Sitting Left Arm 146 mmHg BP Diastolic Sitting Left Arm 64 mmHg Heart Rate 60 /min Respiratory Rate 16 /min Height 62 inches 5'2" Weight 123.00 lb BMI (Body Mass Index) 22.5 kg/m2 BSA (Body Surface Area) 1.55 m2 [place] body weight in kilograms 50 10/03/2017 BP Systolic Sitting Left Arm 142 mmHg BP Diastolic Sitting Left Arm 80 mmHg Heart Rate 60 /min Respiratory Rate 16 /min Height 62 inches 5'2" Weight 118.00 lb BMI (Body Mass Index) 21.6 kg/m2 BSA (Body Surface Area) 1.53 m2 [place] body weight in kilograms 50 03/31/2017 BP Systolic Sitting Left Arm 140 mmHg BP Diastolic Sitting Left Arm 64 mmHg Heart Rate 62 /min Respiratory Rate 16 /min Height 62 inches 5'2" Weight 123.00 lb BMI (Body Mass Index) 22.5 kg/m2 BSA (Body Surface Area) 1.55 m2 [place] body weight in kilograms 50 02/08/2017 BP Systolic Sitting Left Arm 187 mmHg BP Diastolic Sitting Left Arm 64 mmHg 01/26/2017 BP Systolic Sitting Left Arm 132 mmHg BP Diastolic Sitting Left Arm 66 mmHg Heart Rate 68 /min Respiratory Rate 16 /min Height 62 inches 5'2" Weight 129.00 lb BMI (Body Mass Index) 23.6 kg/m2 BSA (Body Surface Area) 1.59 m2 [place] body weight in kilograms 50 01/19/2017 BP Systolic Sitting Right Arm 124 mmHg BP Diastolic Sitting Right Arm 58 mmHg Heart Rate 74 /min Respiratory Rate 16 /min Height 62 inches 5'2" Weight 128.00 lb BMI (Body Mass Index) 23.4 kg/m2 BSA (Body Surface Area) 1.58 m2 [place] body weight in kilograms 50 05/03/2016 BP [...] Test Date Test Result H/L Range Note Serum sodium 01/08/2018 Serum sodium 136 136-145 measurement measurement Serum or plasma urea 01/08/2018 Serum or plasma urea 15 7-18 nitrogen measurement nitrogen measurement (mass/vo (mass/volume) Serum or plasma glucose 01/08/2018 Serum or plasma glucose 82 74-106 measurement measurement (mass/volume) (mass/volume) Serum or plasma 01/08/2018 Serum or plasma 1.2 0.6-1.3 creatinine measurement creatinine measurement (mass/volum (mass/volume) Serum or plasma calcium 01/08/2018 Serum or plasma calcium 8.9 8.5-10.1 measurement measurement (mass/volume) (mass/volume) Serum carbon dioxide 01/08/2018 Serum carbon dioxide 26 21-32 measurement measurement RDW RBC Auto-Rto 01/08/2018 RDW RBC Auto-Rto 13.9 11.7-14.4 Potassium SerPl-sCnc 01/08/2018 Potassium SerPl-sCnc 4.8 3.5-5.1 GFR/Bsa pred.non black 01/08/2018 GFR/Bsa pred.non black 46 >60 SerPl MDRD-ArVRat SerPl MDRD-ArVRat GFR/Bsa pred.black 01/08/2018 GFR/Bsa pred.black 55 >60 SerPl MDRD-ArVRat SerPl MDRD-ArVRat Chloride SerPl-sCnc 01/08/2018 Chloride SerPl-sCnc 103 98-107 Blood leukocytes 01/08/2018 Blood leukocytes 5.3 3.1-10.7 automated count automated count (number/volume) (number/volume) CBC 01/08/2018 White Blood Count 5.3 K/uL [...] 10.9 Low 11.6-15.8 measurement measurement (mass/volume) (mass/volume) RDW RBC Auto 01/07/2018 RDW RBC Auto [...] Lymph % 19.7 % Low 20.0-42.0 1 [place] % 15.1 % High 4.3-13.2 1 Eo% 2.0 % 0.0-6.6 1 Bas% 0.1 % 0.0-1.1 1 Neut# 4.48 K/uL 1.8-7.0 1 Lymph # 1.40 K/uL 1.0-4.0 1 [place] # 1.07 K/uL High 0.3-0.9 1 Eos # 0.14 K/uL 0.0-0.5 1 Baso # 0.01 K/uL 0.0-0.1 1 pH Ur Strip.auto 01/06/2018 pH Ur Strip.auto 6.0 Low 6.5-7.5 Laboratory test 01/06/2018 Thyroid Stim Hormone 2.80 uIU/mL 0.30-4.20 1 finding Aot Request 01/06/2018 Aot Request Test(s) added [...] SerPl 01/06/2018 Albumin/Glob SerPl 1.0 Globulin Ser Calc-mCnc 01/06/2018 Globulin Ser Calc-mCnc 3.9 1.9-4.3 Serum or plasma albumin 01/06/2018 Serum or plasma albumin 3.9 3.4-5.0 measurement (mass/volume) measurement (mass/volume) Serum or plasma alkaline 01/06/2018 Serum or plasma alkaline 91 45-117 phosphatase measurement ( phosphatase measurement (enzymatic activity/volume) Serum or plasma aspartate 01/06/2018 Serum or plasma aspartate 29 15-37 aminotransferase measure aminotransferase measurement (enzymatic activity/volume) Serum or plasma 01/06/2018 Serum or plasma 4481.0 High <450 natriuretic peptide B natriuretic peptide B prohormone N prohormone N-terminal measurement (mass/volume) Serum or plasma protein 01/06/2018 Serum or plasma protein 7.8 6.4-8.2 measurement (mass/volume) measurement (mass/volume) Serum or plasma total 01/06/2018 Serum or plasma total 0.5 0.2-1.0 bilirubin measurement bilirubin measurement (mass/ (mass/volume) Ua RFX Micro & Culture II 01/06/2018 Urine Color YELLOW Yellow 1 Urine Clarity CLOUDY Clear 1 Urine Glucose - Dipstick NEGATIVE mg/dL Negative 1 Urine Bilirubin - Dipstick NEGATIVE Negative 1 Urine Ketone NEGATIVE mg/dL Negative 1 Urine Specific [place] 1.010 1.010-1.030 1 Urine Blood SMALL Negative [...] Source: URINE, CLEAN CAT <SEE NOTE> 1, 9 Urine Culture 01/06/2018 Urine Culture ESCHERICHIA COLI 1, 10 Quantity > 100,000 CFU/mL 1, 11 Urine Culture STREP. AGALACTIA <SEE NOTE> 1, 12 Quantity 50,000 - 100,000 <SEE NOTE> 1, 13 Recommended Therapy: PENICILLIN OR AM <SEE NOTE> 1, 14 Escherichia Coli 01/06/2018 [...] 01/06/2018 Urobilinogen Ur 0.2 0.2-1.0 Strip-aCnc Strip-aCnc Serum or plasma 10/03/2017 Serum or plasma [...] 15 Lymph % 23.3 % 20.0-42.0 15 [place] % 17.6 % High 4.3-13.2 15 Eo% 6.3 % 0.0-6.6 15 Bas% 0.7 % 0.0-1.1 15 Neut# 2.83 K/uL 1.8-7.0 15 Lymph # 1.27 K/uL 1.0-4.0 15 [place] # 0.96 K/uL High 0.3-0.9 15 Eos [...] Co2 SerPl-sCnc 01/09/2017 Co2 SerPl-sCnc 27 21-32 Anion Gap 01/09/2017 Anion Gap SerPl-sCnc 7 [...] Lymph % 16.4 % Low 20.0-42.0 22 [place] % 12.6 % 4.3-13.2 22 Eo% 5.0 % 0.0-6.6 22 Bas% 0.3 % 0.0-1.1 22 Neut# 4.86 K/uL 1.8-7.0 22 Lymph # 1.21 K/uL 1.0-4.0 22 [place] # 0.93 K/uL High 0.3-0.9 22 Eos [...] High 23.4-35.0 22, 25 finding Thrombo Time Calcium SerPl-mCnc 01/09/2017 Calcium SerPl-mCnc 8.1 Low 8.5-10.1 Chloride SerPl-sCnc 01/09/2017 Chloride 107 98-107 SerPl-sCnc Creat SerPl-mCnc 01/09/2017 Creat SerPl-mCnc 1.0 0.6-1.3 [...] Lymph % 14.4 % Low 20.0-42.0 22 [place] % 9.4 % 4.3-13.2 22 Eo% 4.5 % 0.0-6.6 22 Bas% 0.2 % 0.0-1.1 22 Neut# 6.05 K/uL 1.8-7.0 22 Lymph # 1.22 K/uL 1.0-4.0 22 [place] # 0.80 K/uL 0.3-0.9 22 Eos # [...] or plasma 6514.0 High <450 natriuretic peptide natriuretic peptide B prohormone N B prohormone N-terminal measurement (mass/volume) Laboratory test 01/07/2017 NT-proBNP 6514.0 pg/mL High <450 22 finding Laboratory test 01/07/2017 Magnesium 1.9 mg/dL 1.8-2.4 22 finding Stool bacteria 01/06/2017 Stool bacteria Organism: No identification by identification by Enteric culture culture Pathogens Isolated Stool Culture 01/06/2017 Stool Culture NO ENTERIC 22, 35 PATHO <SEE NOTE> . ................ <SEE NOTE> [...] NOTE> 22, 43 TSH SerPl-aCnc 01/06/2017 TSH SerPl-aCnc 0.98 0.30-4.20 [...] Y 22 Reflex add FT4? Y 22 CBC 01/06/2017 White Blood Count 12.6 K/uL [...] Mean Platelet Volume 10.5 fL 8.9-12.4 22 Bacteria Bld Aerobe 01/05/2017 Bacteria Bld Aerobe No Growth: Final Cult Cult Report Anaerobic blood 01/05/2017 Anaerobic blood No Growth: Final culture culture Report Blood Culture 01/05/2017 Blood Culture Aerobic NO GROWTH: FINAL <SEE NOTE> Blood Culture Anaerobic NO GROWTH: FINAL <SEE NOTE> Lactic Acid 01/05/2017 Lactic Acid 1.9 mmol/L [...] 01/05/2017 Ketones Ur Negative Negative Strip.auto-mCnc Strip.auto-mCnc Color Ur 01/05/2017 Color Ur Yellow Yellow [...] Ketone NEGATIVE mg/dL Negative 22 Urine Specific [place] <=1.005 Low 1.010-1.030 22 Urine Blood MODERATE [...] Negative Ur Ql Strip.auto Ur Ql Strip.auto Stool Culture 01/04/2017 Stool Culture NO ENTERIC , 51 PATHO <SEE NOTE> . ................ <SEE NOTE> , 52 Note: INCLUDES TESTING <SEE NOTE> 22, 53 . PLESIOMONAS, CAM <SEE NOTE> 22, 54 . ................ <SEE NOTE> 22, 55 . YERSINIA AND VIB <SEE NOTE> [...] Prot SerPl-mCnc 01/04/2017 Prot SerPl-mCnc 7.8 6.4-8.2 Total Cells Counted 01/04/2017 Total Cells Counted 100 Bld Bld LDL Cholesterol 10/30/2014 Cholesterol 142 mg/dL < [...] % 40.4-72.8 Lymph % 17.8 % 17.0-46.1 [place] % 10.9 % 4.3-13.2 Eo% 3.9 % 0.0-6.6 Bas% 0.4 % 0.0-1.1 Neut# 4.79 K/uL 1.0-7.0 Lymph # 1.27 K/uL Low 1.8-7.0 [place] # 0.78 K/uL 0.3-0.9 Eos # 0.28 [...] Suggestive 0.6 - 1.5 ng/mL: Consistent 9 URINE, CLEAN CATCH 10 ESCHERICHIA COLI 11 > 100,000 CFU/mL 12 STREP. AGALACTIAE (BETA GRP B) 13 50,000 - 100,000 CFU/mL 14 PENICILLIN OR AMPICILLIN. 15 I48.0 16 Note: Persistent reduction for [...] species may also cause disease. Performed at: [address] [id number] Cytometry Technologist: Paramjit Billy MD, Phone: [phone] CHECKED CALLED APTT TO DANIE Nguyen RN AT 0879 01/08/17 by TEMP.[email or web address] Is patient on heparin [...] NAYA Stoll AT 0026 01/08/17 by LAB.[email or web address] 31 THERAPEUTIC INR RANGE: 2.0 - 3.0 [...] Procedures Date CPT Code Description Status 01/03/2018 08838 EKG-Tracing And Report Completed 10/03/2017 34456 EKG-Tracing And Report Completed 03/31/2017 07590 EKG-Tracing And Report Completed 01/26/2017 32263 EKG-Tracing And Report Completed 01/19/2017 46091 EKG-Tracing And Report Completed 01/08/2017 39013 EKG Interpretation And Report Only Completed 01/07/2017 12810 EKG Interpretation And Report Only Completed 01/05/2017 23616 Echocardiogram Complete Completed 01/04/2017 76339 EKG Interpretation And Report Only Completed 10/29/2015 20421 EKG-Tracing And Report Completed 10/20/2014 75864 EKG-Tracing And Report Completed 10/22/2012 80513 EKG-Tracing And Report Completed 07/22/2012 72266 Echocardiogram Complete Completed Encounters Type Date Location Provider CPT E/M Dx Office Visit 01/03/2018 10:15a [place] [address] I48.0 I71.2 I10 Z79.01 Office Visit 10/03/2017 9:30a [place] [address] I48.0 I71.2 I10 R63.3 Office Visit 03/31/2017 9:40a Cardiology Office KELLE Whitley 55959 I48.0 I71.2 I10 E78.2 Office Visit 02/08/2017 1:40p [place] [address] Z01.30 Office Visit 01/26/2017 10:00a [place] [address] I48.0 Z79.01 I71.2 I10 Office Visit 01/19/2017 3:00p [place] [address] I48.91 Office Visit 01/05/2017 2:28p [place] [address] I48.91 Office Visit 05/03/2016 9:40a [place] [address] I10 I71.2 E78.2 Office Visit 10/29/2015 10:00a [place] [address] I10 I71.2 Office Visit 10/20/2014 1:30p [place]iology [place] [address] 441.2 401.1 272.0 Office Visit 02/17/2014 10:40a [place] [address] 441.2 401.1 272.0 Office Visit 08/19/2013 10:40a [place] [address] 441.2 401.1 272.0 Office Visit 02/15/2013 9:40a [place] [address] 441.2 401.1 272.0 Office Visit 12/11/2012 11:00a [place] [address] 441.2 401.1 272.0 Office Visit 10/22/2012 10:00a [place] [address] 441.2 401.1 272.0 Office Visit 07/23/2012 1:45p [place] [address] 441.2 Plan of Care Future Appointment(s):01/22/2018 11:20 am - KELLE Whitley at Cardiology [facility]7507/03/2018 10:00 am - Gayla Negron MD at Cardiology [place]6701/03/2018 - Gayla Negron MDI48.0 Paroxysmal atrial fibrillationComments:Remains in sinus with Amiodarone. No side effects. Labs drawn in Sep. Anticoagulated with Eliquis.I71.2 Thoracic aortic aneurysm, without ruptureComments:4.4 cm on last Echo. Declined follow ups and any possible intervention.I10 Essential (primary) hypertensionComments:Better controlled overall. Repeated BP by myself today 140 mmHg. Still suboptimal but she is under alot of stress and ate outlast night. Importance of BP control and low sodium diet discussed.Z79.01 alf (current ) use of anticoagulantsComments:Anticoagulated. No side effects or bleeding reported.AllFollow up:6 months.
[2018-02-06 15:47] VITALS: BP 157/57
[2018-02-06] MEDS ORDERED: Albuterol 2.5 MG/3 ML NEB.SOL* (0.083%) INH ONE (16:06)
--- NOTE | 2018-02-06 16:06 | UC ---
General HPI - HPI Summary HPI Summary: Patient presents complaining of a persistent cough. She states it began 3 days ago. She notes it is getting progressively worse. She is complaining of associated congestion and now thick yellow green sputum. She denies any fever or chills. She denies a history of lung disease she offers no other complaints. - History of Current Complaint Chief Complaint: UCRespiratory Stated Complaint: COUGH, CONGESTION Time Seen by Provider: 02/06/18 16:00 Hx Obtained From: Patient Onset/Duration: Gradual Onset Timing: Constant Pain Intensity: 0 Aggravating: nothing Alleviating: Nothing Associated Signs & Symptoms: Positive: Cough. Negative: Chest Pain, Fever, SOB - Allergy/Home Medications Allergies/Adverse Reactions: Allergies Allergy/AdvReac Type Severity Reaction Status Date / Time codeine Allergy Insomnia Verified 02/06/18 15:39 Sulfa (Sulfonamide Allergy Unknown Verified 02/06/18 15:39 Antibiotics) Reaction Details Home Medications: Home Medications Acetaminophen TAB* [Tylenol TAB*] 2 tab BID PRN 02/06/18 [History Confirmed 10/22] Amiodarone TAB* [Cordarone TAB*] 200 mg PO DAILY 02/06/18 [History Confirmed 10/22] Apixaban* [Eliquis] 2.5 mg PO BID 02/06/18 [History Confirmed 02/06/18] Benzonatate CAP* [Tessalon 100 MG CAP*] 1 cap TID PRN 02/06/18 [History Confirmed 02/06/18] Levocetirizine Dihydrochloride [Xyzal Allergy 24Hr] 5 mg PO QPM 02/06/18 [ History Confirmed 02/06/18] Pravastatin Sodium 40 mg PO DAILY 02/06/18 [History Confirmed 02/06/18] PMH/Surg Hx/FS Hx/Imm Hx Endocrine History: Dyslipidemia Cardiovascular History: Hypertension, Atrial Fibrillation - Surgical History Surgical History: None - Family History Known Family History: Positive: None, Cardiac Disease, Hypertension - Social History Occupation: Retired Alcohol Use: None Substance Use Type: None Smoking Status (MU): Former Smoker Length of Time of Smoking/Using Tobacco: 30 yrs Have You Smoked in the Last Year: Yes When Did the Patient Quit Smoking/Using Tobacco: 30 yrs ago - Immunization History Most Recent Influenza Vaccination: no Vaccination Up to Date: Yes Review of Systems Constitutional: Negative Skin: Negative Eyes: Negative ENT: Negative Respiratory: Cough Cardiovascular: Negative Gastrointestinal: Negative Genitourinary: Negative Motor: Negative Neurovascular: Negative Musculoskeletal: Negative Neurological: Negative Psychological: Negative Is Patient Immunocompromised?: No All Other Systems Reviewed And Are Negative: Yes Physical Exam Triage Information Reviewed: Yes Appearance: Well-Appearing Vital Signs: Initial Vital Signs Temp 98.9 F 02/06/18 15:42 Pulse 72 02/06/18 15:42 Resp 26 02/06/18 15:42 BP 157/57 02/06/18 15:42 Pulse Ox 96 02/06/18 15:42 Vital Signs Reviewed: Yes Eyes: Positive: Conjunctiva Clear ENT: Positive: Normal ENT inspection Neck: Positive: Supple, Nontender, No Lymphadenopathy, Other: - no jvd Respiratory: Positive: Lungs clear, No respiratory distress, Decreased breath sounds, Other: - Frequent bronchospastic congested cough and Cardiovascular: Positive: RRR, No Murmur Abdomen Description: Positive: Nontender, No Organomegaly, Soft Bowel Sounds: Positive: Present Musculoskeletal: Positive: No Edema Neurological: Positive: Alert Psychological: Positive: Age Appropriate Behavior Skin Exam: Normal Re-Evaluation - Re-Evaluation First Eval Re-Evaluation Time: 16:31 Change: Improved - aeration better with less cough Course/Dx - Course Course Of Treatment: hx htn , tx. non toxic, not hypoxic, no concern for chf, PE or pneumonia; however, worsening with purulent sputum and bronchospasm. - Differential Dx - Multi-Symptom Provider Diagnoses: cough. bronchospasm Discharge - Sign-Out/Discharge Documenting (check all that apply): Discharge/Admit/Transfer - Discharge Plan Condition: Stable Disposition: HOME Prescriptions: Albuterol HFA INHALER* [Ventolin HFA Inhaler*] 2 puff INH Q6H #1 mdi DOXYcycline CAP(*) [DOXYcycline 100MG CAP(*)] 100 mg PO BID #14 cap predniSONE TAB* [Deltasone 20 MG TAB*] 40 mg PO DAILY 3 Days #6 tab Patient Education Materials: Acute Cough (ED), Bronchospasm (ED) Referrals: Taj Vargas MD [Primary Care Provider] - 7 Days - Billing Disposition and Condition Condition: STABLE Disposition: Home
== END 2018-02-06 16:38 | disposition home or self-care (01) ==
LOC: UCCORT 15:20
DX: R05 Cough (principal); J98.01 Acute bronchospasm; Z88.5 Allergy status to narcotic agent; Z88.2 Allergy status to sulfonamides; E78.5 Hyperlipidemia, unspecified; I48.91 Unspecified atrial fibrillation; I10 Essential (primary) hypertension; Z87.891 Personal history of nicotine dependence
CPT/HCPCS: 99212; G0463

== ENCOUNTER 2018-08-01 18:37 | Emergency (ER) | payer MEDICARE ==
[2018-08-01 19:16] VITALS: BP 163/86
--- NOTE | 2018-08-01 20:21 | ED ---
Skin Complaint - HPI Summary HPI Summary: 83 year old female presents with her son with 2 unrelated concerns. Her first concern is for a small "lump" which she has had for at least 2 weeks to her left forearm. She states that it is a hard, non-painful, nodule beneath the skin without erythema and that it has not changed since she discovered it. She is also concerned about a non-healing sore to her left earlobe that has been presents for months. States it is itchy, erythematous, and becomes scaly and crusted at times but denies drainage. She has tried applying antibiotic ointment to the lesion without improvement. - History of Current Complaint Chief Complaint: UCGeneralIllness Time Seen by Provider: 08/01/18 20:02 Stated Complaint: LEFT ARM LUMP, LEFT EAR COMPLAINT Hx Obtained From: Patient Pain Intensity: 0 - Allergy/Home Medications Allergies/Adverse Reactions: Allergies Allergy/AdvReac Type Severity Reaction Status Date / Time codeine Allergy Insomnia Verified 08/01/18 19:10 Sulfa (Sulfonamide Allergy Unknown Verified 08/01/18 19:10 Antibiotics) Reaction Details PMH/Surg Hx/FS Hx/Imm Hx Endocrine/Hematology History: Reports: Hx Anticoagulant Therapy Cardiovascular History: Reports: Hx Atrial Fibrillation, Hx Hypertension, Hx Peripheral Vascular Disease Denies: Hx Deep Vein Thrombosis, Hx Embolism Respiratory History: Reports: Hx Chronic Obstructive Pulmonary Disease (COPD) Musculoskeletal History: Reports: Hx Arthritis Infectious Disease History: No Infectious Disease History: Denies: Traveled Outside the [place] in Last 30 Days - Family History Known Family History: Positive: Cardiac Disease, Hypertension - Social History Occupation: Retired Lives: Alone Alcohol Use: None Substance Use Type: Reports: None Smoking Status (MU): Former Smoker Length of Time of Smoking/Using Tobacco: 30 yrs Have You Smoked in the Last Year: Yes Review of Systems Negative: Fever, Chills Skin: Other - See HPI All Other Systems Reviewed And Are Negative: Yes Physical Exam - Summary Physical Exam Summary: GENERAL APPEARANCE: Well developed, well nourished, alert and cooperative, and appears to be in no acute distress. CARDIAC: Normal S1 and S2. No S3, S4 or murmurs. Rhythm is regular. There is no peripheral edema, cyanosis or pallor. Extremities are warm and well perfused. Peripheral pulses intact. Capillary refill is less than 2 seconds. LUNGS: Clear to auscultation and percussion without rales, rhonchi, wheezing or diminished breath sounds. ABDOMEN: Positive bowel sounds. Soft, nondistended, nontender. No guarding or rebound. No masses or hepatosplenomegally. MUSKULOSKELETAL: ROM intact to all extremities. No joint erythema or tenderness. Normal muscular development. Normal gait. EXTREMITIES: There is a single firm, mobile subdermal nodule to her left proximal, medial forearm that is in line with a superficial varicose vein. SKIN: There is a 0.3 cm x 0.5 cm oval-shaped erythematous, scaly lesion to her upper left ear lobe. Triage Information Reviewed: Yes Vital Signs On Initial Exam: Initial Vitals Temp Pulse Resp BP Pulse Ox 97.6 F 76 18 163/86 96 08/01/18 19:12 08/01/18 19:12 08/01/18 19:12 08/01/18 19:12 08/01/18 19:12 Vital Signs Reviewed: Yes Diagnostics - Vital Signs Vital Signs Temp Pulse Resp BP Pulse Ox 08/01/18 19:12 97.6 F 76 18 163/86 96 - Laboratory Lab Statement: Any lab studies that have been ordered have been reviewed, and results considered in the medical decision making process. Course/Dx - Course Course Of Treatment: 83 year old female presents with her son with 2 unrelated concerns. Her first concern is for a small "lump" which she has had for at least 2 weeks to her left forearm. She states that it is a hard, non-painful, nodule beneath the skin without erythema and that it has not changed since she discovered it. She is also concerned about a non-healing sore to her left earlobe that has been presents for months. States it is itchy, erythematous, and becomes scaly and crusted at times but denies drainage. She has tried applying antibiotic ointment to the lesion without improvement. Exam reveals a single firm, mobile subdermal nodule to her left proximal, medial forearm that is in line with a superficial varicose vein. It is non-tender and without erythema. There is also a 0.3 cm x 0.5 cm oval-shaped erythematous, scaly lesion to her upper left ear lobe that is concerning for a squamous cell carinoma. Patient was advised that the nodule was likely benign and recommended watchful waiting with follow up with her PCP if it persisted or changed. She was counseled on the need for further evaluation and likely biopsy of the ear lobe lesion. She was given a referral to general surgery and her son stated he may also be able to get her in to see his director of securities and real estate. Patient and son verbalize understanding and agree with plan of care. - Diagnoses Provider Diagnoses: Superficial varicosities, Lesion of left earlobe, Elevated blood pressure reading Discharge - Sign-Out/Discharge Documenting (check all that apply): Patient Departure All imaging exams completed and their final reports reviewed: No Studies - Discharge Plan Condition: Stable Disposition: HOME Referrals: Taj Vargas MD [Primary Care Provider] - Jeffrey Cary MD [Medical Doctor] - Additional Instructions: The lump on your arm appears to be a varicose vein without any evidence of inflammation or infection. I would recommend watchful waiting at this time. The lesion on your left ear lobe is suspicious for a possible skin infection. I am going to give you a referral to Dr. Cary, general surgery, to schedule a follow up appointment within the next 2 weeks and discuss a possible biopsy of the lesion. Call for an appointment. Your blood pressure was elevated in the clinic today. It is recommended that you follow up with your primary care provider within the next 4 weeks for recheck. - Billing Disposition and Condition Condition: STABLE Disposition: Home - Attestation Statements Provider Attestation: I was available for consult. This patient was seen by the GERALDO. The patient was not presented to, seen by, or examined by me. -Radha
== END 2018-08-01 20:27 | disposition home or self-care (01) ==
LOC: UCCORT 18:37
DX: I86.8 Varicose veins of other specified sites (principal); R03.0 Elevated blood-pressure reading, without diagnosis of hypertension; L98.9 Disorder of the skin and subcutaneous tissue, unspecified; Z88.5 Allergy status to narcotic agent; Z88.2 Allergy status to sulfonamides; I10 Essential (primary) hypertension; I48.91 Unspecified atrial fibrillation; Z79.01 Long term (current) use of anticoagulants; Z87.891 Personal history of nicotine dependence
CPT/HCPCS: 99211; G0463

== ENCOUNTER 2019-02-01 18:29 | Emergency (ER) | payer MEDICARE ==
--- OUTSIDE RECORDS SUMMARY | 2019-02-01 18:37 | XMS REPORT | Continuity of Care Document ---
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 Taj Vargas MD Primary Care Physician Unavailable Payers Date Identification Numbers Payment Provider Subscriber Policy Number: [id number] Medicare Cyndi Spears PayID: [id number] [address] [place] [address] Policy Number: [id number] [facility] Cyndi Spears PayID: [id number] [address] [place] [address] Problems Active Problems Provider Date Aneurysm of thoracic aorta Jean Pierre Smith MD, PhD Onset: 10/22/2012 Benign essential hypertension Jean Pierre Smith MD, PhD Onset: 10/22/2012 Pure hypercholesterolemia Jean Pierre Smtih MD, PhD Onset: 10/22/2012 Essential hypertension Gayla Negron MD Onset: 10/29/2015 Family History Date Family Member(s) Observation Comments General No known family history of CAD. 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 Independent with all ADL's Tobacco Use Start: Unknown End: Quit 30 years ago Unknown Cigarette Use Pack Years - 10 Smoking Status Reviewed: 02/14/18 Quit 30 years ago ETOH Use Denies alcohol use Allergies, Adverse Reactions, Alerts Active Allergies Reaction Severity Comments Date Codeine 10/03/2017 Sulfa Drugs 10/03/2017 Inactive Allergies NKDA 10/22/2012 Medications Active Medications SIG Qnty Indications Ordering Date Provider Reggie 1 tab by mouth 180tabs Sheldon Gutierrez 03/28/2017 2.5mg Tablets twice daily Kayla Garcia, [facility] Pravachol 1 po qd 90tabs Unknown 40mg Tablets Tylenol Extra Strength 1-2 tabs by Unknown 500mg mouth every 4 Tablets hours as needed Amlodipine Besylate 1 by mouth 90tabs Santana, Viktoriya 5mg every day ALAN Tarmmell, Tablets 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 Acidophilus 1 po daily Unknown 100mg Capsules Levocetirizine 1 by mouth Unknown Dihydrochloride every day 5mg Tablets History Medications Lisinopril 1 by mouth every 90tabs Gayla Negron MD 10/03/2017 - 10mg Tablets day Unknown Lisinopril once daily 90tabs Gayla Negron MD 02/08/2017 - 10mg Tablets 02/08/2017 Lisinopril 1 by mouth every 90tabs Gayla Negron MD 02/08/2017 - 5mg Tablets day 10/03/2017 Amiodarone HCL 1 to 2 tablets by 180tabs Esther Viktoriya 01/31/2017 - 200mg mouth every day as ALAN Trammell, Unknown Tablets directed 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 Lisinopril-Hydrochloro take 1 tablet by 90tabs Cassie Santanaa 05/16/2014 - thiazide mouth once daily ALAN Trammell, Unknown 10-12.5mg 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 Tablets Carvedilol 1 tab by mouth 180tabs I10 Viktoriya Santana 10/22/2012 - 3.125mg twice a day ALAN Trammell, Unknown Tablets 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 Lisinopril/Hydrochloro 1 po qd 90tabs Jean Pierre Smith, - thiazide , PhD 05/16/2014 10-12.5mg Tablets Loratadine Allergy 1 tab by mouth Unknown - Relief every day as Unknown 10mg Tablets needed allergies Dispers Amlodipine Besylate 1/2 by mouth every Unknown - 5mg day Unknown Tablets Amiodarone HCL 2 tablets a day 93tabs Esther Viktoriya - 200mg for three days and ALAN Trammell, 01/31/2017 Tablets then go back to 1 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 tablet per day therafter. Metronidazole 1 by mouth three Unknown - 500mg times a day Unknown Tablets Eliquis 1 tab by mouth Gayla Negron MD - 2.5mg Tablets twice daily 03/28/2017 Furosemide 1 by mouth every Unknown - 40mg Tablets day If Needed Unknown Benzonatate 1 tab by mouth Unknown - 200mg three times a day Unknown Capsules Cephalexin 1 by mouth three Unknown - 250mg Capsules times daily Unknown Vital Signs Date Vital Result Comment 01/14/2019 11:15am BP Systolic Sitting Left Arm 138 mmHg BP Diastolic Sitting Left Arm 78 mmHg Heart Rate 63 /min Respiratory Rate 18 /min Height 62 inches 5'2" Weight 128.00 lb BMI (Body Mass Index) 23.4 kg/m2 BSA (Body Surface Area) 1.58 m2 [place] body weight in kilograms 50 kg O2 % BldC Oximetry 95 % 06/20/2018 11:17am BP Systolic Sitting Right Arm 144 mmHg BP Diastolic Sitting Right Arm 64 mmHg Heart Rate 67 /min Respiratory Rate 18 /min Height 62 inches 5'2" Weight 125.00 lb BMI (Body Mass Index) 22.9 kg/m2 BSA (Body Surface Area) 1.57 m2 [place] body weight in kilograms 50 kg O2 % BldC Oximetry 96 % Ora 02/14/2018 1:13pm BP Systolic Sitting Left Arm 126 mmHg BP Diastolic Sitting Left Arm 60 mmHg Heart Rate 66 /min Respiratory Rate 16 /min Height 62 inches 5'2" Weight 124.00 lb BMI (Body Mass Index) 22.7 kg/m2 BSA (Body Surface Area) 1.56 m2 [place] body weight in kilograms 50 kg O2 % BldC Oximetry 96 % Room air 01/12/2018 1:12pm BP Systolic Sitting Left Arm 110 mmHg BP Diastolic Sitting Left Arm 62 mmHg Heart Rate 64 /min Respiratory Rate 16 /min Height 62 inches 5'2" Weight 122.00 lb BMI (Body Mass Index) 22.3 kg/m2 BSA (Body Surface Area) 1.55 m2 [place] body weight in kilograms 50 kg O2 % BldC Oximetry 94 % 01/03/2018 10:04am BP Systolic Sitting Left Arm 146 mmHg BP Diastolic Sitting Left Arm 64 mmHg Heart Rate 60 /min Respiratory Rate 16 /min Height 62 inches 5'2" Weight 123.00 lb BMI (Body Mass Index) 22.5 kg/m2 BSA (Body Surface Area) 1.55 m2 [place] body weight in kilograms 50 kg 10/03/2017 9:29am BP Systolic Sitting Left Arm 142 mmHg BP Diastolic Sitting Left Arm 80 mmHg Heart Rate 60 /min Respiratory Rate 16 /min Height 62 inches 5'2" Weight 118.00 lb BMI (Body Mass Index) 21.6 kg/m2 BSA (Body Surface Area) 1.53 m2 [place] body weight in kilograms 50 kg 03/31/2017 9:51am BP Systolic Sitting Left Arm 140 mmHg BP Diastolic Sitting Left Arm 64 mmHg Heart Rate 62 /min Respiratory Rate 16 /min Height 62 inches 5'2" Weight 123.00 lb BMI (Body Mass Index) 22.5 kg/m2 BSA (Body Surface Area) 1.55 m2 [place] body weight in kilograms 50 kg 02/08/2017 2:24pm BP Systolic Sitting Left Arm 187 mmHg BP Diastolic Sitting Left Arm 64 mmHg 01/26/2017 10:14am BP Systolic Sitting Left Arm 132 mmHg BP Diastolic Sitting Left Arm 66 mmHg Heart Rate 68 /min Respiratory Rate 16 /min Height 62 inches 5'2" Weight 129.00 lb BMI (Body Mass Index) 23.6 kg/m2 BSA (Body Surface Area) 1.59 m2 [place] body weight in kilograms 50 kg 01/19/2017 3:39pm BP Systolic Sitting Right Arm 124 mmHg BP Diastolic Sitting Right Arm 58 mmHg Heart Rate 74 /min Respiratory Rate 16 /min Height 62 inches 5'2" Weight 128.00 lb BMI (Body Mass Index) 23.4 kg/m2 BSA (Body Surface Area) 1.58 m2 [place] body weight in kilograms 50 kg 05/03/2016 9:48am BP Systolic Sitting Left Arm 140 mmHg BP Diastolic Sitting Left Arm 76 mmHg Heart Rate 64 /min Respiratory Rate 16 /min Height 62 inches 5'2" Weight 129.00 lb BMI (Body Mass Index) 23.6 kg/m2 BSA (Body Surface Area) 1.59 m2 10/29/2015 10:13am BP Systolic Sitting Right Arm 152 mmHg BP Diastolic Sitting Right Arm 68 mmHg Heart Rate 66 /min Respiratory Rate 20 /min Height 62 inches 5'2" Weight 130.00 lb BMI (Body Mass Index) 23.8 kg/m2 BSA (Body Surface Area) 1.59 m2 10/20/2014 1:41pm BP Systolic Sitting Right Arm 130 mmHg BP Diastolic Sitting Right Arm 64 mmHg Heart Rate 18 /min Respiratory Rate 73 /min Height 62 inches 5'2" Weight 129.00 lb BMI (Body Mass Index) 23.6 kg/m2 BSA (Body Surface Area) 1.59 m2 02/17/2014 10:44am BP Systolic Sitting Right Arm 136 mmHg BP Diastolic Sitting Right Arm 64 mmHg Heart Rate 60 /min Respiratory Rate 16 /min Height 62 inches 5'2" Weight 131.00 lb BMI (Body Mass Index) 24.0 kg/m2 BSA (Body Surface Area) 1.60 m2 08/19/2013 10:28am BP Systolic Sitting Right Arm 130 mmHg BP Diastolic Sitting Right Arm 62 mmHg Heart Rate 60 /min Respiratory Rate 16 /min Height 62 inches 5'2" Weight 130.00 lb BMI (Body Mass Index) 23.8 kg/m2 BSA (Body Surface Area) 1.59 m2 02/15/2013 9:41am BP Systolic Sitting Left Arm 138 mmHg BP Diastolic Sitting Left Arm 68 mmHg Heart Rate 60 /min Respiratory Rate 18 /min Height 62 inches 5'2" Weight 131.00 lb BMI (Body Mass Index) 24.0 kg/m2 BSA (Body Surface Area) 1.60 m2 12/11/2012 10:50am BP Systolic Sitting Left Arm 162 mmHg BP Diastolic Sitting Left Arm 70 mmHg Heart Rate 60 /min Respiratory Rate 16 /min Height 62 inches 5'2" Weight 130.00 lb BMI (Body Mass Index) 23.8 kg/m2 BSA (Body Surface Area) 1.59 m2 10/22/2012 9:53am BP Systolic Sitting Right Arm 186 mmHg BP Diastolic Sitting Right Arm 70 mmHg BP Systolic Sitting Left Arm 180 mmHg BP Diastolic Sitting Left Arm 84 mmHg Heart Rate 77 /min Respiratory Rate 16 /min Height 62 inches 5'2" Weight 133.00 lb BMI (Body Mass Index) 24.3 kg/m2 Results Test Date Facility Test Result H/L Range Note Serum sodium 01/08/2018 N2N/CCD Import Serum sodium 136 136-145 measurement measurement Serum or plasma 01/08/2018 N2N/CCD Import Serum or plasma 15 7-18 urea nitrogen urea nitrogen measurement measurement (mass/vo (mass/volume) Serum or plasma 01/08/2018 N2N/CCD Import Serum or plasma 82 74-106 glucose glucose measurement measurement (mass/volume) (mass/volume) Serum or plasma 01/08/2018 N2N/CCD Import Serum or plasma 1.2 0.6-1.3 creatinine creatinine measurement measurement (mass/volum (mass/volume) Serum or plasma 01/08/2018 N2N/CCD Import Serum or plasma 8.9 8.5-10.1 calcium calcium measurement measurement (mass/volume) (mass/volume) Serum carbon 01/08/2018 N2N/CCD Import Serum carbon 26 21-32 dioxide dioxide measurement measurement RDW RBC Auto-Rto 01/08/2018 N2N/CCD Import RDW RBC Auto-Rto 13.9 11.7- 14.4 Potassium 01/08/2018 N2N/CCD Import Potassium 4.8 3.5-5.1 SerPl-sCnc SerPl-sCnc GFR/Bsa pred.non 01/08/2018 N2N/CCD Import GFR/Bsa pred.non 46 >60 black SerPl black SerPl MDRD-ArVRat MDRD-ArVRat GFR/Bsa 01/08/2018 N2N/CCD Import GFR/Bsa 55 >60 pred.black SerPl pred.black SerPl MDRD-ArVRat MDRD-ArVRat CBC 01/08/2018 [facility] White Blood 5.3 K/uL N 3.1-10.[address] [place] [address] [phone] Red Blood Count 3.52 M/uL Low 3.90-5.40 Hemoglobin 10.9 gm/dL Low 11.6-15.8 Hematocrit 33.4 % Low 36.0-46.1 Mean Cell Volume 94.9 fl N 80.9-99.0 Mean Corpuscular HGB 31.0 pg N 25.9-32.7 Mean Corpuscular HGB Conc 32.6 g/dL N 30.8-34.3 Platelet Count 186 K/uL N 155-360 Red Cell Distri Width %CV 13.9 % N 11.7-14.4 Mean Platelet Volume 11.0 fL N 8.9-12.4 Basic Metabolic Panel 01/08/2018 [facility] Glucose 82 mg/dL N 74-[address] [place] [address] [phone] BUN 15 mg/dL N 7-18 Creatinine 1.2 mg/dL N 0.6-1.3 Glom Filtration Rate, Estimate 46 mL/min >60 If 55 mL/min >60 2 BUN/Creat 12.5 ratio Sodium 136 mmol/L N 136-145 Potassium 4.8 mmol/L N 3.5-5.1 Chloride 103 mmol/L N 98-107 Carbon Dioxide 26 mmol/L N 21-32 Anion Gap 7 mEq/L Low 8-16 Calcium 8.9 mg/dL N 8.5-10.1 Anion Gap 01/08/2018 N2N/CCD Import Anion Gap 7 Low 8-16 SerPl-sCnc SerPl-sCnc Automated blood 01/08/2018 N2N/CCD Import Automated blood 33.4 Low 36.0- 46.1 hematocrit (volume hematocrit (volume fraction) fraction) Automated blood 01/08/2018 N2N/CCD Import Automated blood 186 155-360 platelet count platelet count Automated blood 01/08/2018 N2N/CCD Import Automated blood 11.0 8.9-12.4 platelet mean platelet mean volume measurement volume measurement Automated 01/08/2018 N2N/CCD Import Automated 31.0 25.9-32.7 erythrocyte mean erythrocyte mean corpuscular corpuscular hemoglobin hemoglobin (mass per erythrocyte) Automated 01/08/2018 N2N/CCD Import Automated 32.6 30.8-34.3 erythrocyte mean erythrocyte mean corpuscular corpuscular hemoglobin hemoglobin concentration measurement (mass/volume) Automated 01/08/2018 N2N/CCD Import Automated 94.9 80.9-99.0 erythrocyte mean erythrocyte mean corpuscular volume corpuscular volume BUN/Creat SerPl 01/08/2018 N2N/CCD Import BUN/Creat SerPl 12.5 Blood erythrocytes 01/08/2018 N2N/CCD Import Blood erythrocytes 3.52 Low 3.90-5.40 automated count automated count (number/volume) (number/volume) Blood hemoglobin 01/08/2018 N2N/CCD Import Blood hemoglobin 10.9 Low 11.6 -15.8 measurement measurement (mass/volume) (mass/volume) Blood leukocytes 01/08/2018 N2N/CCD Import Blood leukocytes 5.3 3.1- 10.7 automated count automated count (number/volume) (number/volume) Chloride 01/08/2018 N2N/CCD Import Chloride SerPl-sCnc 103 98-107 SerPl-sCnc RDW RBC Auto 01/07/2018 N2N/CCD Import RDW RBC Auto 48.1 High 3-47 Neutrophils/leuk 01/07/2018 N2N/CCD Import Neutrophils/leuk 63.1 40.4- 72.8 NFr Bld Auto NFr Bld Auto Neutrophils # Bld 01/07/2018 N2N/CCD Import Neutrophils # Bld 4.48 1.8- 7.0 Auto Auto Monocytes/leuk NFr 01/07/2018 N2N/CCD Import Monocytes/leuk NFr 15.1 High 4.3-13.2 Bld Auto Bld Auto Lymphocytes/leuk 01/07/2018 N2N/CCD Import Lymphocytes/leuk 19.7 Low 20.0 -42.0 NFr Bld Auto NFr Bld Auto Eosinophil/leuk 01/07/2018 N2N/CCD Import Eosinophil/leuk NFr 2.0 0.0- 6.6 NFr Bld Auto Bld Auto Blood monocytes 01/07/2018 N2N/CCD Import Blood monocytes 1.07 High 0.3- 0.9 automated count automated count (number/volume) (number/volume) Basophils/leuk NFr 01/07/2018 N2N/CCD Import Basophils/leuk NFr 0.1 0.0- 1.1 Bld Auto Bld Auto Automated blood 01/07/2018 N2N/CCD Import Automated blood 1.40 1.0-4.0 lymphocyte count lymphocyte count (number/volume) (number/volume) Automated blood 01/07/2018 N2N/CCD Import Automated blood 0.14 0.0-0.5 eosinophil count eosinophil count Automated blood 01/07/2018 N2N/CCD Import Automated blood 0.01 0.0-0.1 basophil count basophil count (count/volume) (count/volume) Basic Metabolic 01/07/2018 [facility] Glucose 108 High 74-[address] mg/[place] [address] [phone] BUN 21 mg/dL High 7-18 Creatinine 1.4 mg/dL High 0.6-1.3 Glom Filtration Rate, Estimate 38 mL/min >60 If 46 mL/min >60 3 BUN/Creat 15.0 ratio Sodium 130 mmol/L Low 136-145 Potassium 5.0 mmol/L N 3.5-5.1 Chloride 97 mmol/L Low 98-107 Carbon Dioxide 26 mmol/L N 21-32 Anion Gap 7 mEq/L Low 8-16 Calcium 8.9 mg/dL N 8.5-10.1 Laboratory test 01/07/2018 [facility] Magnesium 2.0 mg/dL N 1.8-2.[address] [place] [address] [phone] CBS W/Automated 01/07/2018 [facility] White Blood 7.1 K/uL N 3.1-10.[address] [place] [address] [phone] Red Blood Count 3.71 M/uL Low 3.90-5.40 Hemoglobin 11.4 gm/dL Low 11.6-15.8 Hematocrit 35.6 % Low 36.0-46.1 Mean Cell Volume 96.0 fl N 80.9-99.0 Mean Corpuscular HGB 30.7 pg N 25.9-32.7 Mean Corpuscular HGB Conc 32.0 g/dL N 30.8-34.3 Platelet Count 192 K/uL N 155-360 Red Cell Distri Width SD 48.1 fl High 3-47 Red Cell Distri Width %CV 14.2 % N 11.7-14.4 Mean Platelet Volume 10.4 fL N 8.9-12.4 Neut% 63.1 % N 40.4-72.8 Lymph % 19.7 % Low 20.0-42.0 Spink % 15.1 % High 4.3-13.2 Eo% 2.0 % N 0.0-6.6 Bas% 0.1 % N 0.0-1.1 Neut# 4.48 K/uL N 1.8-7.0 Lymph # 1.40 K/uL N 1.0-4.0 Spink # 1.07 K/uL High 0.3-0.9 Eos # 0.14 K/uL N 0.0-0.5 Baso # 0.01 K/uL N 0.0-0.1 Aot Request 01/06/2018 [facility] Aot Request Test(s) added 4 [address] [place] [address] [phone] Tests to be added: FREE T4 * Miscellaneous 01/06/2018 N2N/CCD Import * Miscellaneous Test(s) added studies (set) studies (set) Aot Request 01/06/2018 [facility] Aot Request Test(s) added 5 [address] [place] [address] [phone] Tests to be added: PRO BNP,CPK,CRP, <SEE NOTE> 6 Comprehensive Metabolic 01/06/2018 [facility] Glucose 146 mg/dL High 74-106 Panel [address] [place] [address] [phone] BUN 23 mg/dL High 7-18 Creatinine 1.6 mg/dL High 0.6-1.3 Glom Filtration Rate, Estimate 33 mL/min >60 If 40 mL/min >60 7 BUN/Creat 14.3 ratio Sodium 132 mmol/L Low 136-145 Potassium 4.7 mmol/L N 3.5-5.1 Chloride 100 mmol/L N 98-107 Carbon Dioxide 23 mmol/L N 21-32 Anion Gap 9 mEq/L N 8-16 Calcium 8.8 mg/dL N 8.5-10.1 Total Protein 7.8 g/dL N 6.4-8.2 Albumin 3.9 g/dL N 3.4-5.0 Globulin 3.9 g/dL N 1.9-4.3 Alb/Glob 1.0 ratio Bilirubin,Total 0.5 mg/dL N 0.2-1.0 Sgot/Ast 29 U/L N 15-37 SGPT/Alt 34 U/L N 12-78 Alkaline Phosphatase 91 U/L N 45-117 Laboratory test 01/06/2018 [facility] Magnesium 1.6 mg/dL Low 1.8-2.4 finding [address] [place] [address] [phone] CK 44 U/L N 26-192 NT-proBNP 4481.0 pg/mL High <450 Troponin-I < 0.015 ng/mL 8 Free T4 1.31 ng/dL N 0.76-1.46 C-Reactive Protein,Quant 5.1 mg/L High <3.0 Alt SerPl-cCnc 01/06/2018 N2N/CCD Import Alt SerPl-cCnc 34 12-78 Albumin/Glob SerPl 01/06/2018 N2N/CCD Import Albumin/Glob SerPl 1.0 Globulin Ser 01/06/2018 N2N/CCD Import Globulin Ser 3.9 1.9-4.3 Calc-mCnc Calc-mCnc Serum or plasma 01/06/2018 N2N/CCD Import Serum or plasma 3.9 3.4-5.0 albumin measurement albumin measurement (mass/volume) (mass/volume) Serum or plasma 01/06/2018 N2N/CCD Import Serum or plasma 91 45-117 alkaline phosphatase alkaline phosphatase measurement ( measurement (enzymatic activity/volume) Serum or plasma 01/06/2018 N2N/CCD Import Serum or plasma 29 15-37 aspartate aspartate aminotransferase aminotransferase measure measurement (enzymatic activity/volume) Serum or plasma 01/06/2018 N2N/CCD Import Serum or plasma 4481.0 High < 450 natriuretic peptide B natriuretic peptide prohormone N B prohormone N-terminal measurement (mass/volume) Serum or plasma 01/06/2018 N2N/CCD Import Serum or plasma 7.8 6.4-8.2 protein measurement protein measurement (mass/volume) (mass/volume) Serum or plasma total 01/06/2018 N2N/CCD Import Serum or plasma 0.5 0.2- 1.0 bilirubin measurement total bilirubin (mass/ measurement (mass/volume) Strep. Agalactiae 01/06/2018 [facility] Penicillin G <=0.06 S (Beta GRP B) [address] [place] [address] [phone] Tetracycline >=16 R Trimethoprim/Sulfamethoxazole <=10 S Ampicillin <=0.25 S Levofloxacin 1 S Ceftriaxone <=0.12 S Vancomycin 0.5 S Escherichia Coli 01/06/2018 [facility] Nitrofurantoin <=16 S [address] [place] [address] [phone] Trimethoprim/Sulfamethoxazole <=20 S Ampicillin >=32 R Cefazolin 8 S Ampicillin/Sulbactam >=32 R Ciprofloxacin <=0.25 S Piperacillin/Tazobactam 16 S Ceftazidime <=1 S Ceftriaxone <=1 S Cefepime <=1 S Levofloxacin <=0.12 S Imipenem <=0.25 S Gentamicin <=1 S Tobramycin <=1 S Urine Culture 01/06/2018 [facility] Urine Culture ESCHERICHIA COLI Abnormal 9 [address] [place] [address] [phone] Quantity > 100,000 CFU/mL 10 Urine Culture STREP. AGALACTIA <SEE NOTE> Abnormal 11 Quantity 50,000 - 100,000 <SEE NOTE> 12 Recommended Therapy: PENICILLIN OR AM <SEE NOTE> 13 Ua RFX Micro & Culture 01/06/2018 [facility] Urine Color YELLOW Yellow II [address] [place] [address] [phone] Urine Clarity CLOUDY Clear Urine Glucose - Dipstick NEGATIVE mg/dL Negative Urine Bilirubin - Dipstick NEGATIVE Negative Urine Ketone NEGATIVE mg/dL Negative Urine Specific [place] 1.010 N 1.010-1.030 Urine Blood SMALL Abnormal Negative Urine PH 6.0 Low 6.5-7.5 Urine Protein - Dipstick NEGATIVE mg/dL Negative Urine Urobilinogen - Dipstick 0.2 E.U./dL N 0.2-1.0 Urine Nitrite - Dipstick NEGATIVE Negative Urine Leuk Esterase LARGE Abnormal Negative Urine RBC 0-2 rbc/hpf 0-2 Urine WBC 30-50 wbc/hpf High 0-7 Urine Epithelial Cells FEW /lpf None Seen Urine Bacteria MODERATE Abnormal None Seen Source: URINE, CLEAN CAT <SEE NOTE> 14 Bacteria 01/06/2018 N2N/CCD Import Bacteria Moderate High None Seen detection in detection in urine sediment by urine sediment light micr by light microscopy Color Ur 01/06/2018 N2N/CCD Import Color Ur Yellow Yellow Epithelial cells 01/06/2018 N2N/CCD Import Epithelial cells Few None Seen detection in detection in urine sediment by urine sediment li by light microscopy Ketones Ur 01/06/2018 N2N/CCD Import Ketones Ur Negative Negative Strip.auto-mCnc Strip.auto-mCnc Leukocyte 01/06/2018 N2N/CCD Import Leukocyte Large High Negative esterase Ur Ql esterase Ur Ql Strip.auto Strip.auto Nitrite Ur Ql 01/06/2018 N2N/CCD Import Nitrite Ur Ql Negative Negative Strip.auto Strip.auto Prot Ur 01/06/2018 N2N/CCD Import Prot Ur Negative Negative Strip.auto-mCnc Strip.auto-mCnc Specific gravity 01/06/2018 N2N/CCD Import Specific gravity 1.010 1.010- 1.030 of Urine by of Urine by Automated test Automated test strip strip Urine appearance 01/06/2018 N2N/CCD Import Urine appearance Cloudy Clear determination determination Urine glucose 01/06/2018 N2N/CCD Import Urine glucose Negative Negative measurement by measurement by automated test automated test strip strip (mass/volume) Urine hemoglobin 01/06/2018 N2N/CCD Import Urine hemoglobin Small High Negative detection by detection by automated test automated test strip strip Urine total 01/06/2018 N2N/CCD Import Urine total Negative Negative bilirubin bilirubin detection by detection by automated test automated test strip Urobilinogen Ur 01/06/2018 N2N/CCD Import Urobilinogen Ur 0.2 0.2-1.0 Strip-aCnc Strip-aCnc pH Ur Strip.auto 01/06/2018 N2N/CCD Import pH Ur Strip.auto 6.0 Low 6.5- 7.5 Laboratory test 01/06/2018 [facility] Thyroid Stim 2.80 uIU/mL N 0.30-4.20 finding [address] [place] [address] [phone] Serum or plasma 10/03/2017 N2N/CCD Import Serum or plasma 180 High <150 triglyceride triglyceride measurement measurement (mass/vol (mass/volume) Serum or plasma 10/03/2017 N2N/CCD Import Serum or plasma 190 <200 cholesterol cholesterol measurement measurement (mass/volu (mass/volume) Serum or plasma 10/03/2017 N2N/CCD Import Serum or plasma 108 < 100 cholesterol in cholesterol in LDL measurement LDL measurement by by calculation (mass/volume) Serum or plasma 10/03/2017 N2N/CCD Import Serum or plasma 46 >40 cholesterol in cholesterol in HDL measurement HDL measurement (ma (mass/volume) TSH Reflex FT4 10/03/2017 [facility] Thyroid Stim 2.30 uIU/mL N 0.30-4.20 15 And/Or FT3 [address] [place] [address] [phone] Reflex add FT3? Y Reflex add FT4? Y Magnesium 10/03/2017 [facility] Magnesium 1.9 mg/dL N 1.8-2.4 [address] [place] [address] [phone] Reflex add FT3? Y Reflex add FT4? Y LDL Cholesterol Profile 10/03/2017 [facility] Cholesterol 190 mg/dL <[address] [place], [place] [id number] [phone] Triglycerides 180 mg/dL High <150 17 HDL Cholesterol 46 mg/dL >40 18 LDL-Cholesterol 108 mg/dL < 100 19 Reflex add FT3? Y Reflex add FT4? Y Comprehensive Metabolic 10/03/2017 [facility] Glucose 101 mg/dL N 74-106 Panel [address] [place] [address] [phone] BUN 25 mg/dL High 7-18 Creatinine 1.4 mg/dL High 0.6-1.3 Glom Filtration Rate, Estimate 38 mL/min >60 If 46 mL/min >60 20 BUN/Creat 17.8 ratio Sodium 139 mmol/L N 136-145 Potassium 4.7 mmol/L N 3.5-5.1 Chloride 107 mmol/L N 98-107 Carbon Dioxide 23 mmol/L N 21-32 Anion Gap 9 mEq/L N 8-16 Calcium 9.2 mg/dL N 8.5-10.1 Total Protein 8.6 g/dL High 6.4-8.2 Albumin 3.9 g/dL N 3.4-5.0 Globulin 4.7 g/dL High 1.9-4.3 Alb/Glob 0.8 ratio Bilirubin,Total 0.5 mg/dL N 0.2-1.0 Sgot/Ast 27 U/L N 15-37 SGPT/Alt 24 U/L N 12-78 Alkaline Phosphatase 91 U/L N 45-117 Reflex add FT3? Y Reflex add FT4? Y CBS W/Automated Diff 10/03/2017 [facility] White Blood 5.4 K/uL N 3.1-10.[address] [place], [place] [id number] [phone] Red Blood Count 4.33 M/uL N 3.90-5.40 Hemoglobin 12.9 gm/dL N 11.6-15.8 Hematocrit 40.1 % N 36.0-46.1 Mean Cell Volume 92.6 fl N 80.9-99.0 Mean Corpuscular HGB 29.8 pg N 25.9-32.7 Mean Corpuscular HGB Conc 32.2 g/dL N 30.8-34.3 Platelet Count 214 K/uL N 155-360 Red Cell Distri Width SD 47.3 fl High 3-47 Red Cell Distri Width %CV 14.1 % N 11.7-14.4 Mean Platelet Volume 9.5 fL N 8.9-12.4 Neut% 52.1 % N 40.4-72.8 Lymph % 23.3 % N 20.0-42.0 Spink % 17.6 % High 4.3-13.2 Eo% 6.3 % N 0.0-6.6 Bas% 0.7 % N 0.0-1.1 Neut# 2.83 K/uL N 1.8-7.0 Lymph # 1.27 K/uL N 1.0-4.0 Spink # 0.96 K/uL High 0.3-0.9 Eos # 0.34 K/uL N 0.0-0.5 Baso # 0.04 K/uL N 0.0-0.1 WBC # Bld Auto 01/09/2017 N2N/CCD Import WBC # Bld Auto 7.4 3.1-10.7 Unloinc 01/09/2017 N2N/CCD Import Unloinc See Note 21 Sodium 01/09/2017 N2N/CCD Import Sodium 141 136-145 SerPl-sCnc SerPl-sCnc RDW RBC Auto-Rto 01/09/2017 N2N/CCD Import RDW RBC Auto-Rto 13.4 11.7- 14.4 RDW RBC Auto 01/09/2017 N2N/CCD Import RDW RBC Auto 43.2 3-47 RBC # Bld Auto 01/09/2017 N2N/CCD Import RBC # Bld Auto 3.37 Low 3.90- 5.40 Potassium 01/09/2017 N2N/CCD Import Potassium 3.9 3.5-5.1 SerPl-sCnc SerPl-sCnc Platelets 01/09/2017 N2N/CCD Import Platelets 218 150-400 [#/volume] in [#/volume] in Blood by Blood by Automated count Automated count PMV Bld Auto 01/09/2017 N2N/CCD Import PMV Bld Auto 9.8 8.9-12.4 Neutrophils/leuk 01/09/2017 N2N/CCD Import Neutrophils/leuk 65.7 40.4- 72.8 NFr Bld Auto NFr Bld Auto Neutrophils # 01/09/2017 N2N/CCD Import Neutrophils # 4.86 1.8-7.0 Bld Auto Bld Auto Monocytes/leuk 01/09/2017 N2N/CCD Import Monocytes/leuk 12.6 4.3-13.2 NFr Bld Auto NFr Bld Auto BUN SerPl-mCnc 01/09/2017 N2N/CCD Import BUN SerPl-mCnc 5 *L 7-18 BUN/Creat SerPl 01/09/2017 N2N/CCD Import BUN/Creat SerPl 5.0 Basophils 01/09/2017 N2N/CCD Import Basophils 0.02 0.0-0.1 [#/volume] in [#/volume] in Blood by Blood by Automated count Automated count Basophils/leuk 01/09/2017 N2N/CCD Import Basophils/leuk 0.3 0.0-1.1 NFr Bld Auto NFr Bld Auto Co2 SerPl-sCnc 01/09/2017 N2N/CCD Import Co2 SerPl-sCnc 27 21-32 Calcium 01/09/2017 N2N/CCD Import Calcium 8.1 Low 8.5-10.1 SerPl-mCnc SerPl-mCnc Chloride 01/09/2017 N2N/CCD Import Chloride 107 98-107 SerPl-sCnc SerPl-sCnc Creat SerPl-mCnc 01/09/2017 N2N/CCD Import Creat SerPl-mCnc 1.0 0.6-1.3 Anion Gap 01/09/2017 N2N/CCD Import Anion Gap 7 Low 8-16 SerPl-sCnc SerPl-sCnc Laboratory test 01/09/2017 [facility] Slide Review (SEE 22, [address] NOTE) [place] [address] [phone] CBS W/Automated 01/09/2017 [facility] White Blood 7.4 K/uL N 3.1-10.[address] [place] [address] [phone] Red Blood Count 3.37 M/uL Low 3.90-5.40 Hemoglobin 10.2 gm/dL Low 11.6-15.8 Hematocrit 31.1 % Low 36.0-46.1 Mean Cell Volume 92.3 fl N 80.9-99.0 Mean Corpuscular HGB 30.3 pg N 25.9-32.7 Mean Corpuscular HGB Conc 32.8 g/dL N 30.8-34.3 Platelet Count 218 K/uL N 150-400 Red Cell Distri Width SD 43.2 fl N 3-47 Red Cell Distri Width %CV 13.4 % N 11.7-14.4 Mean Platelet Volume 9.8 fL N 8.9-12.4 Neut% 65.7 % N 40.4-72.8 Lymph % 16.4 % Low 20.0-42.0 Spink % 12.6 % N 4.3-13.2 Eo% 5.0 % N 0.0-6.6 Bas% 0.3 % N 0.0-1.1 Neut# 4.86 K/uL N 1.8-7.0 Lymph # 1.21 K/uL N 1.0-4.0 Spink # 0.93 K/uL High 0.3-0.9 Eos # 0.37 K/uL N 0.0-0.5 Baso # 0.02 K/uL N 0.0-0.1 Basic Metabolic Panel 01/09/2017 [facility] Glucose 130 mg/dL High 74-[address] [place] [address] [phone] BUN 5 mg/dL Low 7-18 Creatinine 1.0 mg/dL N 0.6-1.3 Glom Filtration Rate, Estimate 57 mL/min >60 If >60 mL/min >60 24 BUN/Creat 5.0 ratio Sodium 141 mmol/L N 136-145 Potassium 3.9 mmol/L N 3.5-5.1 Chloride 107 mmol/L N 98-107 Carbon Dioxide 27 mmol/L N 21-32 Anion Gap 7 mEq/L Low 8-16 Calcium 8.1 mg/dL Low 8.5-10.1 Laboratory 01/09/2017 [facility] Act Partial 78.1 High 23.4-35.0 25 test finding [address] [place] [address] [phone] Eosinophil # 01/09/2017 N2N/CCD Import Eosinophil # 0.37 0.0-0.5 Bld Auto Bld Auto Eosinophil/sherri 01/09/2017 N2N/CCD Import Eosinophil/sherri 5.0 0.0-6.6 k NFr Bld Auto k NFr Bld Auto GFR/Bsa 01/09/2017 N2N/CCD Import GFR/Bsa 57 >60 pred.non black pred.non black SerPl SerPl MDRD-ArVRat MDRD-ArVRat Glucose 01/09/2017 N2N/CCD Import Glucose 130 High 74-106 [Mass/volume] [Mass/volume] in Serum or in Serum or Plasma Plasma Hct VFr Bld 01/09/2017 N2N/CCD Import Hct VFr Bld 31.1 Low 36.0-46.1 Auto Auto Hgb Bld-mCnc 01/09/2017 N2N/CCD Import Hgb Bld-mCnc 10.2 Low 11.6-15.8 Lymphocytes 01/09/2017 N2N/CCD Import Lymphocytes 1.21 1.0-4.0 [#/volume] in [#/volume] in Blood by Blood by Automated Automated count count Lymphocytes/le 01/09/2017 N2N/CCD Import Lymphocytes/le 16.4 Low 20.0- 42.0 uk NFr Bld uk NFr Bld Auto Auto MCH RBC Qn 01/09/2017 N2N/CCD Import MCH RBC Qn 30.3 25.9-32.7 Auto Auto MCHC RBC 01/09/2017 N2N/CCD Import MCHC RBC 32.8 30.8-34.3 Auto-mCnc Auto-mCnc MCV RBC Auto 01/09/2017 N2N/CCD Import MCV RBC Auto 92.3 80.9-99.0 Monocytes # 01/09/2017 N2N/CCD Import Monocytes # 0.93 High 0.3-0.9 Bld Auto Bld Auto Laboratory 01/08/2017 [facility] Legionella Negative Negative 26 test finding [address] Antigen,[place] [address] [phone] Laboratory 01/08/2017 [facility] Act Partial > 150.0 High 23.4-35.0 27 test finding [address] [place] [place] [address] [phone] Basic 01/08/2017 [facility] Glucose 101 mg/dL N 74-[address] [place] [address] [phone] BUN 4 mg/dL Low 7-18 Creatinine 1.0 mg/dL N 0.6-1.3 Glom Filtration Rate, Estimate 57 mL/min >60 If >60 mL/min >60 28 BUN/Creat 4.0 ratio Sodium 145 mmol/L N 136-145 Potassium 3.8 mmol/L N 3.5-5.1 Chloride 114 mmol/L High 98-107 Carbon Dioxide 25 mmol/L N 21-32 Anion Gap 6 mEq/L Low 8-16 Calcium 8.0 mg/dL Low 8.5-10.1 CBS W/Automated Diff 01/08/2017 [facility] White Blood 8.5 K/uL N 3.1-10.[address] Count [place], [place] [id number] [phone] Red Blood Count 2.95 M/uL Low 3.90-5.40 Hemoglobin 9.0 gm/dL Low 11.6-15.8 Hematocrit 27.7 % Low 36.0-46.1 Mean Cell Volume 93.9 fl N 80.9-99.0 Mean Corpuscular HGB 30.5 pg N 25.9-32.7 Mean Corpuscular HGB Conc 32.5 g/dL N 30.8-34.3 Platelet Count 183 K/uL N 150-400 Red Cell Distri Width SD 44.7 fl N 3-47 Red Cell Distri Width %CV 13.5 % N 11.7-14.4 Mean Platelet Volume 10.4 fL N 8.9-12.4 Neut% 71.5 % N 40.4-72.8 Lymph % 14.4 % Low 20.0-42.0 Spink % 9.4 % N 4.3-13.2 Eo% 4.5 % N 0.0-6.6 Bas% 0.2 % N 0.0-1.1 Neut# 6.05 K/uL N 1.8-7.0 Lymph # 1.22 K/uL N 1.0-4.0 Spink # 0.80 K/uL N 0.3-0.9 Eos # 0.38 K/uL N 0.0-0.5 Baso # 0.02 K/uL N 0.0-0.1 Laboratory test 01/08/2017 [facility] Act Partial 61.3 High 23.4-35.0 [address] [place] [address] Time [phone] Laboratory test 01/08/2017 [facility] Act Partial 85.3 High 23.4-35.[address] [place] [address] Time [phone] Laboratory test 01/07/2017 [facility] Act Partial 143.6 High 23.4-35.0 [address] [place] [address] Time [phone] CBC 01/07/2017 [facility] White Blood 11.5 K/uL High 3.1-10.[address] [place] [address] [phone] Red Blood Count 3.30 M/uL Low 3.90-5.40 Hemoglobin 10.2 gm/dL Low 11.6-15.8 Hematocrit 31.3 % Low 36.0-46.1 Mean Cell Volume 94.8 fl N 80.9-99.0 Mean Corpuscular HGB 30.9 pg N 25.9-32.7 Mean Corpuscular HGB Conc 32.6 g/dL N 30.8-34.3 Platelet Count 193 K/uL N 150-400 Red Cell Distri Width %CV 13.6 % N 11.7-14.4 Mean Platelet Volume 10.8 fL N 8.9-12.4 Protime 01/07/2017 [facility] Protime 16.3 seconds High 12.0-14.[address] [place] [address] [phone] Inr 1.3 High 0.9-1.1 31 Laboratory test 01/07/2017 [facility] Act Partial 32.2 N 23.4-35.0 [address] Thrombo Time seconds [place], [place] [id number] [phone] Prothrombin 01/07/2017 N2N/CCD Import Prothrombin 16.3 High 12.0-14.4 time time Aot Request 01/07/2017 [facility] Aot Request Test(s) [address] [place] [address] [phone] Tests to be added: pro-BNP * Miscellaneous 01/07/2017 N2N/CCD Import * Miscellaneous Test(s) added studies (set) studies (set) CBC 01/07/2017 [facility] White Blood Count 10.1 K/uL N 3.1-[address] [place] [address] [phone] Red Blood Count 3.30 M/uL Low 3.90-5.40 Hemoglobin 10.0 gm/dL Low 11.6-15.8 Hematocrit 31.5 % Low 36.0-46.1 Mean Cell Volume 95.5 fl N 80.9-99.0 Mean Corpuscular HGB 30.3 pg N 25.9-32.7 Mean Corpuscular HGB Conc 31.7 g/dL N 30.8-34.3 Platelet Count 174 K/uL N 150-400 Red Cell Distri Width %CV 13.6 % N 11.7-14.4 Mean Platelet Volume 10.7 fL N 8.9-12.4 Basic Metabolic Panel 01/07/2017 [facility] Glucose 104 mg/dL N 74-[address] [place] [address] [phone] BUN 6 mg/dL Low 7-18 Creatinine 0.9 mg/dL N 0.6-1.3 Glom Filtration Rate, Estimate >60 mL/min >60 If >60 mL/min >60 34 BUN/Creat 6.6 ratio Sodium 147 mmol/L High 136-145 Potassium 3.4 mmol/L Low 3.5-5.1 Chloride 118 mmol/L High 98-107 Carbon Dioxide 20 mmol/L Low 21-32 Anion Gap 9 mEq/L 8-16 Calcium 8.8 mg/dL 8.5-10.1 Serum or plasma 01/07/2017 N2N/CCD Import Serum or plasma 6514.0 High < 450 natriuretic natriuretic peptide B peptide B prohormone N prohormone N-terminal measurement (mass/volume) Laboratory test 01/07/2017 [facility] NT-proBNP 6514.0 High <[address] pg/[place] [address] [phone] Laboratory test 01/07/2017 [facility] Magnesium 1.9 mg/dL N 1.8-2.[address] [place] [address] [phone] CBC 01/06/2017 [facility] White Blood Count 12.6 K/uL High 3.1-10.7 [address] [place] [address] [phone] Red Blood Count 3.15 M/uL Low 3.90-5.40 Hemoglobin 9.7 gm/dL Low 11.6-15.8 Hematocrit 30.2 % Low 36.0-46.1 Mean Cell Volume 95.9 fl N 80.9-99.0 Mean Corpuscular HGB 30.8 pg N 25.9-32.7 Mean Corpuscular HGB Conc 32.1 g/dL N 30.8-34.3 Platelet Count 142 K/uL Low 150-400 Red Cell Distri Width %CV 13.5 % N 11.7-14.4 Mean Platelet Volume 10.5 fL N 8.9-12.4 Basic Metabolic Panel 01/06/2017 [facility] Glucose 94 mg/dL N 74-106 [address] [place], [place] [id number] [phone] BUN 12 mg/dL N 7-18 Creatinine 1.0 mg/dL N 0.6-1.3 Glom Filtration Rate, Estimate 57 mL/min >60 If >60 mL/min >60 35 BUN/Creat 12.0 ratio Sodium 144 mmol/L 136-145 Potassium 3.4 mmol/L Low 3.5-5.1 Chloride 115 mmol/L High 98-107 Carbon Dioxide 20 mmol/L Low 21-32 Anion Gap 9 mEq/L 8-16 Calcium 7.6 mg/dL Low 8.5-10.1 Reflex add FT3? Y Reflex add FT4? Y Magnesium 01/06/2017 [facility] Magnesium 1.7 mg/dL Low 1.8-2.4 [address] [place], [place] [id number] [phone] Reflex add FT3? Y Reflex add FT4? Y Stool bacteria 01/06/2017 N2N/CCD Import Stool bacteria Organism: No identification by identification by Enteric culture culture Pathogens Isolated Stool Culture 01/06/2017 [facility] Stool Culture NO ENTERIC 36 [address] [facility] PATHO <[place] [address] NOTE> [phone] . ................ <SEE NOTE> N 37 Note: INCLUDES TESTING <SEE NOTE> N 38 . PLESIOMONAS, CAM <SEE NOTE> N 39 . ................ <SEE NOTE> N 40 . YERSINIA AND VIB <SEE NOTE> N 41 . SHOULD BE REQUES <SEE NOTE> N 42 Shiga Toxin 1 Antigen Test not perform <SEE NOTE> 43 Shiga Toxin 2 Antigen Test not perform <SEE NOTE> 44 TSH SerPl-aCnc 01/06/2017 N2N/CCD Import TSH SerPl-aCnc 0.98 0.30-4.20 TSH Reflex FT4 01/06/2017 [facility] Thyroid Stim 0.98 uIU/mL N 0.30-4.20 And/Or FT3 [address] [place] [address] [phone] Reflex add FT3? Y Reflex add FT4? Y Bacteria Bld 01/05/2017 N2N/CCD Import Bacteria Bld No Growth: Aerobe Cult Aerobe Cult Final Report Anaerobic blood 01/05/2017 N2N/CCD Import Anaerobic blood No Growth: culture culture Final Report Blood Culture 01/05/2017 [facility] Blood Culture NO GROWTH: [address] Aerobic FINAL <[place] [address] NOTE> [phone] Blood Culture Anaerobic NO GROWTH: FINAL <SEE NOTE> 46 Lactic Acid 01/05/2017 [facility] Lactic Acid 1.9 mmol/L N 0.4-1.9 [address] [place] [address] [phone] Lab Reflex >2.0 for Sepsis? Y pH Ur Strip.auto 01/05/2017 N2N/CCD Import pH Ur Strip.auto 5.5 Low 6.5- 7.5 Lactic Acid 01/05/2017 [facility] Lactic Acid 1.3 mmol/L N 0.4-1.9 [address] [place] [address] [phone] Lab Reflex >2.0 for Sepsis? Y Lactate 01/05/2017 N2N/CCD Import Lactate 1.3 0.4-1.9 [Moles/volume] in [Moles/volume] in Serum or Plasma Serum or Plasma Laboratory test 01/05/2017 [facility] C. Difficile Toxin NEGATIVE [address] [place] [address] <SEE NOTE> [phone] Laboratory test 01/05/2017 [facility] Troponin-I 0.041 ng/mL 48 finding [address] [place] [address] [phone] Lactic Acid 01/05/2017 [facility] Lactic Acid 2.5 mmol/L High 0.4-1.9 [address] [place] [address] [phone] Lab Reflex >2.0 for Sepsis? Y Laboratory 01/05/2017 [facility] Troponin-I 0.036 ng/mL 49 test finding [address] [place] [address] [phone] Prot Ur 01/05/2017 N2N/CCD Import Prot Ur Negative Negative Strip.auto-mCn Strip.auto-mCn c c Nitrite Ur Ql 01/05/2017 N2N/CCD Import Nitrite Ur Ql Negative Negative Strip.auto Strip.auto Leukocyte 01/05/2017 N2N/CCD Import Leukocyte Moderate High Negative esterase Ur Ql esterase Ur Ql Strip.auto Strip.auto Lactic Acid 01/05/2017 [facility] Lactic Acid 2.5 mmol/L High 0.4-1.9 [address] [place], [place] [id number] [phone] Lab Reflex >2.0 for Sepsis? Y Ketones Ur 01/05/2017 N2N/CCD Import Ketones Ur Negative Negative Strip.auto-mCnc Strip.auto-mCnc Epithelial cells 01/05/2017 N2N/CCD Import Epithelial cells Few None Seen [Presence] in Urine [Presence] in Urine sediment by L sediment by Light microscopy Color Ur 01/05/2017 N2N/CCD Import Color Ur Yellow Yellow Bilirub Ur Ql 01/05/2017 N2N/CCD Import Bilirub Ur Ql Negative Negative Strip.auto Strip.auto Bacteria [Presence] 01/05/2017 N2N/CCD Import Bacteria [Presence] Very Few None Seen in Urine sediment by in Urine sediment Light colby by Light microscopy Amorphous sediment 01/05/2017 N2N/CCD Import Amorphous sediment Very Few Negative [Presence] in Urine [Presence] in Urine sediment by sediment by Light microscopy Ua Routine 01/05/2017 [facility] Urine Color YELLOW Yellow [address] [place] [address] [phone] Urine Clarity CLEAR Clear Urine Glucose - Dipstick NEGATIVE mg/dL Negative Urine Bilirubin - Dipstick NEGATIVE Negative Urine Ketone NEGATIVE mg/dL Negative Urine Specific [place] <=1.005 Low 1.010-1.030 Urine Blood MODERATE Abnormal Negative Urine PH 5.5 Low 6.5-7.5 Urine Protein - Dipstick NEGATIVE mg/dL Negative Urine Urobilinogen - Dipstick 0.2 E.U./dL N 0.2-1.0 Urine Nitrite - Dipstick NEGATIVE Negative Urine Leuk Esterase MODERATE Abnormal Negative Urine RBC 2-5 rbc/hpf 0-2 Urine WBC 0-2 wbc/hpf 0-7 Urine Epithelial Cells FEW /lpf None Seen Urine Uric Acid Crystals FEW None Seen Urine Bacteria VERY FEW None Seen Urine Amorph Sediment VERY FEW Negative Source: URINE, CLEAN CAT <SEE NOTE> 50 Urobilinogen Ur 01/05/2017 N2N/CCD Import Urobilinogen Ur 0.2 0.2-1.0 Strip-aCnc Strip-[facility] Urine hemoglobin 01/05/2017 N2N/CCD Import Urine hemoglobin Moderate High Negative detection by detection by automated test automated test strip strip Urine glucose 01/05/2017 N2N/CCD Import Urine glucose Negative Negative measurement by measurement by automated test automated test strip strip (mass/volume) Urine appearance 01/05/2017 N2N/CCD Import Urine appearance Clear Clear determination determination Uric acid crystals 01/05/2017 N2N/CCD Import Uric acid crystals Few None Seen detection in urine detection in urine sediment by sediment by light microscopy Bilirub SerPl-mCnc 01/04/2017 N2N/CCD Import Bilirub SerPl-mCnc 0.6 0.2- 1.0 Aspartate 01/04/2017 N2N/CCD Import Aspartate 13 Low 15-37 aminotransferase aminotransferase [Enzymatic [Enzymatic activity/vol activity/volume] in Serum or Plasma Albumin/Glob SerPl 01/04/2017 N2N/CCD Import Albumin/Glob SerPl 1.0 Albumin SerPl-mCnc 01/04/2017 N2N/CCD Import Albumin SerPl-mCnc 3.9 3.4- 5.0 Alt SerPl-cCnc 01/04/2017 N2N/CCD Import Alt SerPl-cCnc 15 12-78 Alp SerPl-cCnc 01/04/2017 N2N/CCD Import Alp SerPl-cCnc 70 45-117 Unloinc 01/04/2017 N2N/CCD Import Unloinc Stool Stool occult blood 01/04/2017 N2N/CCD Import Stool occult blood Negative Negative Stool leukocytes 01/04/2017 N2N/CCD Import Stool leukocytes None Seen detection by light detection by light microscopy microscopy Escherichia coli 01/04/2017 N2N/CCD Import Escherichia coli See Note 51 Shiga-like toxin 2 Shiga-like toxin 2 detection detection Escherichia coli 01/04/2017 N2N/CCD Import Escherichia coli Shiga Shiga-like toxin 1 Shiga-like toxin 1 Toxin 1 detection detection Not Detected Stool Culture 01/04/2017 [facility] Stool Culture NO ENTERIC [address] PATHO <[place] [address] NOTE> [phone] . ................ <SEE NOTE> N 53 Note: INCLUDES TESTING <SEE NOTE> N 54 . PLESIOMONAS, CAM <SEE NOTE> N 55 . ................ <SEE NOTE> N 56 . YERSINIA AND VIB <SEE NOTE> N 57 . SHOULD BE REQUES <SEE NOTE> N 58 Shiga Toxin 1 Antigen SHIGA TOXIN 1 NO <SEE NOTE> 59 Shiga Toxin 2 Antigen SHIGA TOXIN 2 NO <SEE NOTE> 60 Blood anisocytosis 01/04/2017 N2N/CCD Import Blood 1+ detection by light anisocytosis microscopy detection by light microscopy Blood platelet 01/04/2017 N2N/CCD Import Blood platelet Normal adequacy detection adequacy by light microsc detection by light microscopy Eosinophil % 01/04/2017 N2N/CCD Import Eosinophil % 1 0-5 Globulin Ser 01/04/2017 N2N/CCD Import Globulin Ser 3.9 1.9-4.3 Calc-mCnc Calc-mCnc Lipase SerPl-cCnc 01/04/2017 N2N/CCD Import Lipase SerPl-cCnc 350 73- 393 Lymphocytes/100 01/04/2017 N2N/CCD Import Lymphocytes/100 3 Low 20-42 leukocytes in leukocytes in Blood by Manual Blood by Manual coun count Monocytes/100 01/04/2017 N2N/CCD Import Monocytes/100 6 0-10 leukocytes in leukocytes in Blood by Manual Blood by Manual count count Neuts Band/leuk 01/04/2017 N2N/CCD Import Neuts Band/leuk 5 0-8 NFr Bld Manual NFr Bld Manual Neuts Seg/leuk NFr 01/04/2017 N2N/CCD Import Neuts Seg/leuk 85 High 33- 73 Bld Manual NFr Bld Manual Prot SerPl-mCnc 01/04/2017 N2N/CCD Import Prot SerPl-mCnc 7.8 6.4-8.2 Total Cells 01/04/2017 N2N/CCD Import Total Cells 100 Counted Bld Counted Bld LDL Cholesterol 10/30/2014 [facility] Cholesterol 142 mg/dL < 200 61 Profile [address] [place] [address] [phone] Triglycerides 156 mg/dL < 150 62 HDL Cholesterol 48 mg/dL > 40 63 LDL-Cholesterol 63 mg/dL < 100 64 Liver Function Tests 10/30/2014 [facility] Total Protein 7.5 g/dL 6.4-8.2 [address] [place] [address] [phone] Albumin 3.6 g/dL 3.4-5.0 Globulin 3.9 g/dL 1.9-4.3 Alb/Glob 0.9 ratio Bilirubin,Total 0.3 mg/dL 0.2-1.0 Bilirubin,Direct 0.1 mg/dL 0.0-0.2 Bilirubin,Indirect 0.2 mg/dL 0.0-0.9 Sgot/Ast 13 U/L Low 15-37 65 SGPT/Alt 15 U/L 12-78 Alkaline Phosphatase 73 U/L 45-117 Basic Metabolic Panel 10/30/2014 [facility] Glucose 93 mg/dL 74-106 [address] [place] [address] [phone] BUN 25 mg/dL High 7-18 Creatinine 1.1 mg/dL 0.6-1.3 Glom Filtration Rate, Estimate 51 mL/min >60 If >60 mL/min >60 66 BUN/Creat 22.7 ratio Sodium 141 mmol/L 136-145 Potassium 4.3 mmol/L 3.5-5.1 Chloride 106 mmol/L 98-107 Carbon Dioxide 29 mmol/L 21-32 Anion Gap 6 mEq/L Low 8-16 Calcium 9.4 mg/dL 8.5-10.1 CBC W/Automated Diff 10/30/2014 [facility] White Blood 7.2 K/uL 3.1-10.[address] [place] [address] [phone] Red Blood Count 3.79 M/uL Low 3.90-5.40 [...] % 40.4-72.8 Lymph % 17.8 % 17.0-46.1 Spink % 10.9 % 4.3-13.2 Eo% 3.9 % 0.0-6.6 Bas% 0.4 % 0.0-1.1 Neut# 4.79 K/uL 1.0-7.0 Lymph # 1.27 K/uL Low 1.8-7.0 Spink # 0.78 K/uL 0.3-0.9 Eos # 0.28 K/uL 0.0-0.5 Baso # 0.03 K/uL 0.0-0.1 Laboratory test 10/30/2014 [facility] Thyroid Stim 1.34 uIU/mL 0.36-3.[address] [place] [address] [phone] CBC 08/13/2013 [facility] White Blood 7.1 K/uL 3.1-10.[address] [place] [address] [phone] Red Blood Count 3.99 M/uL 3.90-5.40 Hemoglobin 11.9 gm/dL 11.6-15.8 Hematocrit 37.6 % 36.0-46.1 Mean Cell Volume 94.2 fl 80.9-99.0 Mean Corpuscular HGB 29.8 pg 25.9-32.7 Mean Corpuscular HGB Conc 31.6 g/dL 30.8-34.3 Platelet Count 271 K/uL 155-360 Red Cell Distri Width %CV 13.7 % 11.7-14.4 Mean Platelet Volume 10.1 fL 8.9-12.4 Laboratory 08/13/2013 [facility] C-Reactive 17.20 High 0.00-3.00 67 test finding [address] Protein,Cardiac mg/[place] [address] [phone] LDL 08/13/2013 [facility] Cholesterol 167 120-[address] mg/[place] [address] [phone] Triglycerides 123 mg/dL 16-231 HDL Cholesterol 57 mg/dL 29-83 LDL-Cholesterol 85 mg/dL 62-185 Comprehensive Metabolic 08/13/2013 [facility] Glucose 104 mg/dL 76-[address] [place] [address] [phone] BUN 20 mg/dL 5-23 Creatinine 1.1 mg/dL [...] 30-65 Alkaline Phosphatase 85 U/L 50-136 Laboratory 08/13/2013 [facility] Microalbumin,Random 20.2 High 0.0-18.5 test finding [address] Urine mg/[place] [address] [phone] Liver 10/29/2012 [facility] Total Protein 8.2 High 6.3-8.[address] g/[place] [address] [phone] Albumin 4.0 g/dL 3.5-5.0 Globulin 4.2 g/dL 1.9-4.3 Alb/Glob 1.0 ratio Bilirubin,Total 0.4 mg/dL 0.2-1.2 Bilirubin,Direct < 0.1 mg/dL Low 0.1-0.4 Bilirubin,Indirect 0.3 mg/dL 0.0-0.9 Sgot/Ast 10 U/L Low 16-40 SGPT/Alt 12 U/L Low 30-65 Alkaline Phosphatase 82 U/L 50-136 LDL Cholesterol 10/29/2012 [facility] Cholesterol 175 mg/dL 120-[address] [place] [address] [phone] Triglycerides 187 mg/dL 16-231 HDL Cholesterol 44 [...] 14 URINE, CLEAN CATCH 15 I48.0 16 Reference Guidelines*: Desirable: ........... < 200 mg/dL Borderline High: ..... 200-239 mg/dL High: ................ >=240 mg/dL * The National Cholesterol Education Program (NCEP) 17 Reference Guidelines*: Normal: ............. < 150 mg/dL Borderline High: .... 150-199 mg/dL High: ............... 200-499 mg/dL Very High: .......... > 500 mg/dL * Source: National Cholesterol Education Program (NCEP) 18 Reference Guidelines*: Low HDL: ..... < 40 mg/dL Normal: ..... 40-60 mg/dL Desirable: ... > 60 mg/dL *The National Cholesterol Education Program(NCEP) 19 Reference Guidelines*: Optimal:........... <100 mg/dL Near Optimal....... 100-129 mg/dL Borderline High.... 130-159 mg/dL High............... 160-189 mg/dL Very High.......... >=190 mg/dL * Source: National Cholesterol Education Program (NCEP) 20 Note: Persistent reduction for 3 months or more in an eGFR <60 mL/min/1.73 m2 defines CKD. Patients with eGFR values >/=60 mL/min/1.73 m2 may also have CKD if evidence of persistent proteinuria is present. The original MDRD equation for estimated GFR is not valid for patients less than 18 years of age. Additional information may be found at [email or web address]. 21 Instrument flagged sample for slide review. [...] species may also cause disease. Performed at: [facility] [id number] Lay Out Helper: Paramjit Billy MD, Phone: [phone] CHECKED CALLED APTT TO DANIE Nguyen RN AT 0801/08/17 by [email or web address] Is patient on heparin protocol? [...] information may be found at [email or web address]. 35 Note: Persistent reduction for 3 months or more in an eGFR <60 mL/min/1.73 m2 defines CKD. Patients with eGFR values >/=60 mL/min/1.73 m2 may also have CKD if evidence of persistent proteinuria is present. The original MDRD equation for estimated GFR is not valid for patients less than 18 years of age. Additional information may be found at [email or web address]. 36 NO ENTERIC PATHOGENS ISOLATED 37 ................................................... 38 INCLUDES TESTING FOR SALMONELLA, SHIGELLA, AEROMONAS, 39 PLESIOMONAS, CAMPYLOBACTER, AND E. COLI 0157:H7 40 ................................................... 41 YERSINIA AND VIBRIO ARE NOT ROUTINELY SCREENED FOR AND 42 SHOULD BE REQUESTED SEPARATELY SCANT ENTERIC LJ 43 Test not performed INSUFFICENT GROWTH TO PERFORM TESTING 44 Test not performed INSUFFICENT GROWTH TO PERFORM TESTING 45 NO GROWTH: FINAL REPORT 46 NO GROWTH: FINAL REPORT 47 NEGATIVE FOR C. DIFFICILE TOXIN A/B. Method: Alere Tox A/B Quik Chek Rapid Immunoassay CORRELATE RESULTS WITH CLINICAL CONDITION. 48 0.0 - 0.045 ng/mL: Normal 0.046 - 0.5 ng/mL: Suggestive 0.6 - 1.5 ng/mL: Consistent 49 0.0 - 0.045 ng/mL: Normal 0.046 - 0.5 ng/mL: Suggestive 0.6 - 1.5 ng/mL: Consistent 50 URINE, CLEAN CATCH 51 Shiga Toxin 2 Not Detected Method: ImmunoCard Stat/Ehec Rapid Immunochromatographic Assay 52 NO ENTERIC PATHOGENS ISOLATED 53 ................................................... 54 INCLUDES TESTING FOR SALMONELLA, SHIGELLA, AEROMONAS, 55 PLESIOMONAS, CAMPYLOBACTER, AND E. COLI 0157:H7 56 ................................................... 57 YERSINIA AND VIBRIO ARE NOT ROUTINELY SCREENED FOR AND 58 SHOULD BE REQUESTED SEPARATELY 59 SHIGA TOXIN 1 NOT DETECTED 60 SHIGA TOXIN 2 NOT DETECTED Method: ImmunoCard STAT/EHEC Rapid Immunochromatographic Assay 61 Reference Guidelines*: Desirable: [...] Source: National Cholesterol Education Program (NCEP) 65 Values below the stated reference ranges of AST and ALT can be seen in normal populations. Clinical correlation is suggested. 66 Note: Persistent reduction for 3 months or more in an eGFR <60 mL/min/1.73 m2 defines CKD. Patients with eGFR values >/=60 mL/min/1.73 m2 may also have CKD if evidence of persistent proteinuria is present. The original MDRD equation for estimated GFR is not valid for patients less than 18 years of age. Additional information may be found at www.kdoqi.org. 67 Relative Risk for Future Cardiovascular Event [...] may be found at www.kdoqi.org. Procedures Date Code Description Status 06/20/2018 69009 EKG-Tracing And Report Completed 01/08/2018 28198 Event Monitor Inter/Review Only Completed 01/03/2018 31471 EKG-Tracing And Report Completed 10/03/2017 32995 EKG-Tracing And Report Completed 03/31/2017 56916 EKG-Tracing And Report Completed 01/26/2017 77162 EKG-Tracing And Report Completed 01/19/2017 61298 EKG-Tracing And Report Completed 01/08/2017 75006 EKG Interpretation And Report Only Completed 01/07/2017 21293 EKG Interpretation And Report Only Completed 01/05/2017 92126 Echocardiogram Complete Completed 01/04/2017 67545 EKG Interpretation And Report Only Completed 10/29/2015 38889 EKG-Tracing And Report Completed 10/20/2014 43268 EKG-Tracing And Report Completed 10/22/2012 55936 EKG-Tracing And Report Completed 07/22/2012 62406 Echocardiogram Complete Completed Encounters Type Date Location Provider Dx Diagnosis Office Visit 01/14/2019 Cardiology Office Viktoriya Santana I48.0 Paroxysmal atrial 11:20a ALAN Trammell, fibrillation 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 I49.5 Sick sinus syndrome I10 Essential (primary) hypertension I71.2 Thoracic aortic aneurysm, without rupture R09.89 Oth symptoms and signs involving the circ and resp systems I35.0 Nonrheumatic aortic (valve) stenosis Office Visit 06/20/2018 Cardiology Viktoriya Santana I48.0 Paroxysmal atrial 11:00a Office Jp, ALAN, fibrillation 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 I49.5 Sick sinus syndrome I10 Essential (primary) hypertension I71.2 Thoracic aortic aneurysm, without rupture R09.89 Oth symptoms and signs involving the circ and resp systems I35.0 Nonrheumatic aortic (valve) stenosis Office Visit 02/14/2018 1:15p Cardiology Office Gayla Negron I48.0 Paroxysmal atrial MD fibrillation I49.5 Sick sinus syndrome 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 I10 Essential (primary) hypertension I71.2 Thoracic aortic aneurysm, without rupture Office Visit 01/12/2018 1:30p Cardiology Office Gayla Negron I48.0 Paroxysmal atrial MD fibrillation I49.5 Sick sinus syndrome 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 I10 Essential (primary) hypertension I71.2 Thoracic aortic aneurysm, without rupture Office Visit 01/03/2018 10:15a Cardiology Office Gayal Negron I48.0 Paroxysmal atrial MD fibrillation I71.2 Thoracic aortic aneurysm, without rupture I10 Essential (primary) hypertension Z79.01 senior living (current) use of anticoagulants Office Visit 10/03/2017 9:30a Cardiology Office Gayla Negron I48.0 Paroxysmal atrial MD fibrillation I71.2 Thoracic aortic aneurysm, without rupture I10 Essential (primary) hypertension R63.3 Feeding difficulties Office Visit 03/31/2017 9:40a Cardiology Office Smith I48.0 Paroxysmal atrial Marlyss B., PA fibrillation I71.2 Thoracic aortic aneurysm, without rupture I10 Essential (primary) hypertension E78.2 Mixed hyperlipidemia Office Visit 02/08/2017 1:40p Cardiology Office Gayla Negron, Z01.30 Encounter for exam MD of blood pressure w/o abnormal findings Office Visit 01/26/2017 10:00a Cardiology Office Gyala Negron I48.0 Paroxysmal atrial MD fibrillation Z79.01 senior living (current) use of anticoagulants I71.2 Thoracic aortic aneurysm, without rupture I10 Essential (primary) hypertension Office Visit 01/19/2017 3:00p Cardiology Office Gayla Negron, I48.91 Unspecified atrial MD fibrillation Office Visit 01/05/2017 2:28p Cardiology Office Gayla Negron, I48.91 Unspecified atrial MD fibrillation Office Visit 05/03/2016 9:40a Cardiology Office Ana Rosa Banks I10 Essential A., ANP (primary) hypertension I71.2 Thoracic aortic aneurysm, without rupture E78.2 Mixed hyperlipidemia Office Visit 10/29/2015 10:00a Cardiology Office Gayla Negron, I10 Essential (primary) MD hypertension I71.2 Thoracic aortic aneurysm, without rupture Office Visit 10/20/2014 1:30p Cardiology Office Darren Ana Rosa 441.2 Aneurysm A., ANP Thoracic W/O Rupture 401.1 Hypertension Benign 272.0 Hypercholesterolemia Pure Office Visit 02/17/2014 10:40a Cardiology Office eJan Pierre Smith.Nancy Carroll MD, PhD Thoracic W/O Rupture 401.1 Hypertension Benign 272.0 Hypercholesterolemia Pure Office Visit 08/19/2013 10:40a Cardiology Office Jean Pierre Smith.Nancy Carroll MD, PhD Thoracic W/O Rupture 401.1 Hypertension Benign 272.0 Hypercholesterolemia Pure Office Visit 02/15/2013 9:40a Cardiology Office Jean Pierre Smith.Nancy Carroll MD, PhD Thoracic W/O Rupture 401.1 Hypertension Benign 272.0 Hypercholesterolemia Pure Office Visit 12/11/2012 11:00a Cardiology Office Jean Pierre Smith.Nancy Carroll MD, PhD Thoracic W/O Rupture 401.1 Hypertension Benign 272.0 Hypercholesterolemia Pure Office Visit 10/22/2012 10:00a Cardiology Office Jean Pierre Smith.Nancy Carroll MD, PhD Thoracic W/O Rupture 401.1 Hypertension Benign 272.0 Hypercholesterolemia Pure Office Visit 07/23/2012 1:45p Cardiology Office Jean Pierre Smith.Nancy Aneurysm MD Glen, PhD Thoracic W/O Rupture Plan of Treatment Future Appointment(s):01/13/2020 11:20 am - Sheldon Gutierrez M.D., FACC at [id number]/14/2019 - Viktoriya Santana, ALAN, FNPI48.0 Paroxysmal atrial fibrillationComments:Monitor. No changes.I49.5 Sick sinus syndromeComments:Monitor.I10 Essential (primary) hypertensionComments:No changes.I71.2 Thoracic aortic aneurysm, without ruptureComments:No [id number] Other specified symptoms and signs involving the circulatoryComments:Monitor.I35.0 Nonrheumatic aortic (valve) stenosisComments: Monitor. No echo needed at this time.AllFollow up:Follow up visit in one year.
[2019-02-01 18:48] VITALS: BP 133/60
--- NOTE | 2019-02-01 19:15 | UC ---
Lower Extremity/Ankle HPI - HPI Summary HPI Summary: Pt c/o right side sciatic pain that began 1 week ago. Pt has hx of sciatica denies recent trauma or injury - History of Current Complaint Chief Complaint: UCLowerExtremity Stated Complaint: SCIATICA RIGHT SIDE Time Seen by Provider: 02/01/19 19:01 Hx Obtained From: Patient ?: No Onset/Duration: Gradual Onset, Lasting Days - 7, Still Present Severity Initially: Mild Severity Currently: Moderate Pain Intensity: 8 Aggravating Factor(s): Standing, Ambulation Alleviating Factor(s): Rest Able to Bear Weight: Yes - Risk Factors Gout Risk Factors: Age Over 40 DVT Risk Factors: Negative Septic Arthritis Risk Factor: Extremes of Age - Allergies/Home Medications Allergies/Adverse Reactions: Allergies Allergy/AdvReac Type Severity Reaction Status Date / Time clarithromycin [From Biaxin] Allergy Nausea And Verified 02/01/19 18:49 Vomiting codeine Allergy Insomnia Verified 02/01/19 18:49 Sulfa (Sulfonamide Allergy Unknown Verified 02/01/19 18:49 Antibiotics) Reaction Details Home Medications: Home Medications Fluticasone NASAL SPRAY 50MCG* [Flonase NASAL SPRAY 50MCG*] 2 spray BOTH NARES DAILY 02/01/19 [History Confirmed 02/01/19] PMH/Surg Hx/FS Hx/Imm Hx Previously Healthy: Yes Endocrine History: Dyslipidemia Cardiovascular History: Cardiac Disease Other History Of: Anticoagulant Therapy - Surgical History Surgical History: None - Family History Known Family History: Positive: None, Cardiac Disease, Hypertension - Social History Occupation: Retired Lives: With Family Alcohol Use: None Substance Use Type: None Smoking Status (MU): Former Smoker Length of Time of Smoking/Using Tobacco: 30 yrs Have You Smoked in the Last Year: Yes When Did the Patient Quit Smoking/Using Tobacco: 30 yrs ago - Immunization History Most Recent Influenza Vaccination: no Vaccination Up to Date: Yes Review of Systems All Other Systems Reviewed And Are Negative: Yes Constitutional: Positive: Negative Skin: Positive: Negative Eyes: Positive: Negative ENT: Positive: Negative Respiratory: Positive: Negative Cardiovascular: Positive: Negative Gastrointestinal: Positive: Negative Genitourinary: Positive: Negative Motor: Positive: Decreased ROM - right low back and leg Neurovascular: Positive: Negative Musculoskeletal: Positive: Decreased ROM - right leg and low back, Myalgia Neurological: Positive: Negative Psychological: Positive: Negative Is Patient Immunocompromised?: No Physical Exam Triage Information Reviewed: Yes Appearance: Pain Distress - with ambulation, Thin Vital Signs: Initial Vital Signs Temp 97.5 F 02/01/19 18:42 Pulse 77 02/01/19 18:42 Resp 16 02/01/19 18:42 BP 133/60 02/01/19 18:42 Pulse Ox 98 02/01/19 18:42 Vital Signs Reviewed: Yes Eye Exam: Normal ENT Exam: Normal ENT: Positive: Hearing grossly normal Neck exam: Normal Respiratory Exam: Normal Respiratory: Positive: No respiratory distress Musculoskeletal: Positive: ROM Limited @ - right side low back and right lower extremity Neurological Exam: Normal Psychological Exam: Normal Skin Exam: Normal Lower Extremity Course/Dx - Differential Dx/Diagnosis Provider Diagnosis: Right sided sciatica Discharge - Sign-Out/Discharge Documenting (check all that apply): Patient Departure All imaging exams completed and their final reports reviewed: No Studies - Discharge Plan Condition: Stable Disposition: HOME Prescriptions: predniSONE TAB* [Deltasone 20 MG TAB*] 20 mg PO DAILY #5 tab Patient Education Materials: Sciatica (ED) Referrals: Taj Vargas MD [Primary Care Provider] - If Needed - Billing Disposition and Condition Condition: STABLE Disposition: Home - Attestation Statements Provider Attestation: Per institutional requirements, I have reviewed the chart, however, I was not consulted specifically or made aware of this patient by the midlevel provider. I did not personally evaluate, interact with , or disposition this patient.
== END 2019-02-01 19:26 | disposition home or self-care (01) ==
LOC: UCCORT 18:29
DX: M54.31 Sciatica, right side (principal); Z87.891 Personal history of nicotine dependence
CPT/HCPCS: 99212; G0463

== ENCOUNTER 2019-06-17 16:18 | Emergency (ER) | payer MEDICARE ==
[2019-06-17 17:11] VITALS: BP 174/64
--- NOTE | 2019-06-17 17:33 | UC ---
Throat Pain/Nasal Roman HPI - HPI Summary HPI Summary: 84-year-old woman comes in with a chief complaint of upper respiratory tract infectious symptoms for 3 days. She's had cough chest congestion runny nose yellow rhinorrhea. Steam has helped some with her symptoms. - History of Current Complaint Chief Complaint: UCGeneralIllness Stated Complaint: COUGH Time Seen by Provider: 06/17/19 16:50 Pain Intensity: 0 - Allergies/Home Medications Allergies/Adverse Reactions: Allergies Allergy/AdvReac Type Severity Reaction Status Date / Time clarithromycin [From Biaxin] Allergy Nausea And Verified 06/17/19 17:05 Vomiting codeine Allergy Insomnia Verified 06/17/19 17:05 Sulfa (Sulfonamide Allergy Unknown Verified 06/17/19 17:05 Antibiotics) Reaction Details Home Medications: Home Medications Amlodipine Besylate [Norvasc] 5 mg PO DAILY 06/17/19 [History Confirmed 06/17/19 ] PMH/Surg Hx/FS Hx/Imm Hx Previously Healthy: Yes Endocrine History: Dyslipidemia Cardiovascular History: Hypertension Other History Of: Anticoagulant Therapy - Surgical History Surgical History: None - Family History Known Family History: Positive: None, Cardiac Disease, Hypertension - Social History Alcohol Use: None Substance Use Type: None Smoking Status (MU): Former Smoker Length of Time of Smoking/Using Tobacco: 30 yrs Have You Smoked in the Last Year: Yes When Did the Patient Quit Smoking/Using Tobacco: 30 yrs ago - Immunization History Most Recent Influenza Vaccination: no Vaccination Up to Date: Yes Review of Systems All Other Systems Reviewed And Are Negative: Yes Constitutional: Positive: Other - see hpi Skin: Positive: Negative Eyes: Positive: Negative ENT: Positive: Nasal Discharge, Sinus Congestion Respiratory: Positive: Cough Cardiovascular: Positive: Negative Gastrointestinal: Positive: Negative Motor: Positive: Negative Neurovascular: Positive: Negative Musculoskeletal: Positive: Negative Neurological: Positive: Negative Psychological: Positive: Negative Is Patient Immunocompromised?: No Physical Exam Triage Information Reviewed: Yes Appearance: No Pain Distress, Well-Nourished, Ill-Appearing - mild Vital Signs: Initial Vital Signs Temp 98.7 F 06/17/19 17:08 Pulse 69 06/17/19 17:08 Resp 20 06/17/19 17:08 BP 174/64 06/17/19 17:08 Pulse Ox 98 06/17/19 17:08 Vital Signs Reviewed: Yes Eye Exam: Normal Eyes: Positive: Conjunctiva Clear ENT: Positive: Pharyngeal erythema, Nasal congestion, Nasal drainage, TMs normal Neck: Positive: Supple Respiratory: Positive: Lungs clear, Normal breath sounds, No respiratory distress Cardiovascular: Positive: RRR Musculoskeletal: Positive: Strength Intact, ROM Intact Neurological: Positive: Alert, Muscle Tone Normal Psychological: Positive: Normal Response To Family, Age Appropriate Behavior Skin Exam: Normal Throat Pain/Nasal Course/Dx - Course Course Of Treatment: DISCUSSED VIRAL VERSES BACTERIAL INFECTIONS AND THE ROLE OF ANTIBIOTICS. THE PATIENT PREFERS TO BE ON ANTIBIOTICS AT THIS TIME. - Differential Dx/Diagnosis Provider Diagnosis: Upper respiratory infection Discharge ED - Sign-Out/Discharge Documenting (check all that apply): Patient Departure All imaging exams completed and their final reports reviewed: No Studies - Discharge Plan Condition: Stable Disposition: HOME Prescriptions: Amoxicillin PO (*) [Amoxicillin 875 MG (*)] 875 mg PO BID #20 tab Patient Education Materials: Upper Respiratory Infection (ED) Referrals: Taj Vargas MD [Primary Care Provider] - Additional Instructions: FOLLOW UP WITH YOUR DOCTOR IF NOT COMPLETELY IMPROVED. GET REEVALUATED IF NOT IMPROVING OR WORSE OR ANY QUESTIONS OR CONCERNS. - Billing Disposition and Condition Condition: STABLE Disposition: Home
== END 2019-06-17 17:46 | disposition home or self-care (01) ==
LOC: UCCORT 16:18
DX: J06.9 Acute upper respiratory infection, unspecified (principal); I10 Essential (primary) hypertension; Z88.1 Allergy status to other antibiotic agents; Z88.5 Allergy status to narcotic agent; Z87.891 Personal history of nicotine dependence
CPT/HCPCS: 99212; G0463

== ENCOUNTER 2019-07-05 19:30 | Emergency (ER) | payer MEDICARE ==
[2019-07-05 19:54] VITALS: BP 178/65
--- NOTE | 2019-07-05 20:11 | UC ---
Back Pain HPI - HPI Summary HPI Summary: Left mid back pain x 3 days. Some pain with certain movements and with inspirations. Pt. states 4 evenings ago she stretched into car to toss and item which preceded pain. hard to recreat pain, patient has developed a cough - History of Current Complaint Chief Complaint: UCBackPain Stated Complaint: BACK PAIN Time Seen by Provider: 07/05/19 20:01 Hx Obtained From: Patient ?: No Onset/Duration: Sudden Onset, Lasting Days Timing: Lasting Days Severity Initially: Mild Severity Currently: Mild Pain Intensity: 3 Character: Aching Aggravating Factor(s): Movement - Allergies/Home Medications Allergies/Adverse Reactions: Allergies Allergy/AdvReac Type Severity Reaction Status Date / Time clarithromycin [From Biaxin] Allergy Nausea And Verified 07/05/19 19:43 Vomiting codeine Allergy Insomnia Verified 07/05/19 19:43 Sulfa (Sulfonamide Allergy Unknown Verified 07/05/19 19:43 Antibiotics) Reaction Details Home Medications: Home Medications Azithromyxin APPLE (NF) [Z-Apple (Zithromax) 250 mg tabs #6] 2 tab PO .TODAY, THEN 1 DAILY 07/05/19 [History Confirmed 07/05/19] PMH/Surg Hx/FS Hx/Imm Hx Previously Healthy: Yes Other History Of: Anticoagulant Therapy - Surgical History Surgical History: None - Family History Known Family History: Positive: None, Cardiac Disease, Hypertension - Social History Alcohol Use: None Substance Use Type: None Smoking Status (MU): Former Smoker Length of Time of Smoking/Using Tobacco: 30 yrs Have You Smoked in the Last Year: Yes When Did the Patient Quit Smoking/Using Tobacco: 30 yrs ago - Immunization History Most Recent Influenza Vaccination: no Vaccination Up to Date: Yes Review of Systems All Other Systems Reviewed And Are Negative: Yes Musculoskeletal: Positive: Myalgia Physical Exam Triage Information Reviewed: Yes Appearance: Well-Appearing, Well-Nourished, Pain Distress Vital Signs: Initial Vital Signs Temp 98.2 F 07/05/19 19:49 Pulse 81 07/05/19 19:49 Resp 16 07/05/19 19:49 BP 178/65 07/05/19 19:49 Pulse Ox 98 07/05/19 19:49 Vital Signs Reviewed: Yes Eye Exam: Normal ENT Exam: Normal Dental Exam: Normal Neck exam: Normal Respiratory: Positive: Lungs clear, Normal breath sounds, No respiratory distress Cardiovascular Exam: Normal Cardiovascular: Positive: RRR, No Murmur, Pulses Normal Abdominal Exam: Normal Bowel Sounds: Positive: Present Musculoskeletal: Positive: Strength Intact, ROM Intact, No Edema, Other: - palpable tenderness over the left lower ribs Neurological Exam: Normal Psychological Exam: Normal Skin Exam: Normal Back Pain Course/Dx - Course Course Of Treatment: hx obtained, exam performed, meds reviewed, xray obtained. UA culture was sent as UA come back positive but patient is asymptomatic and her baCK PAIN DOES NOT CORRESPOND TO FLANK PAIN. will wait for radiologist read. adivsed to heat and take pain medications - Differential Dx/Diagnosis Differential Diagnosis/HQI/PQRI: Fracture, Strain, Sprain Provider Diagnosis: Strain of muscle of torso Discharge ED - Sign-Out/Discharge Documenting (check all that apply): Patient Departure All imaging exams completed and their final reports reviewed: No Studies - Discharge Plan Condition: Stable Disposition: HOME Patient Education Materials: Muscle Strain (ED) Referrals: Taj Vargas MD [Primary Care Provider] - Additional Instructions: 1. take tylneol 1000 mg every 8 hours for the next 4-5 days 2. Warm compresses to the back frequently and gentle stretching 3. Lift cautiously. 4. We will call if the radiologist finds anything you manuela to be aware of 5. We also ran your urine and sent it for culture, if you need to be treated we will call you and place you on an appropriate medication. 6. if symptoms worsen, follow up with your doctor or return. - Billing Disposition and Condition Condition: STABLE Disposition: Home
--- NOTE | 2019-07-07 20:09 | ED ---
Progress - Progress Note Progress Note: Call patient to go to the ER for further work up regarding the chest xray findings and that she needs to go to the ER to have further work up for aortic aneurysmal appearance. Course/Dx - Diagnoses Provider Diagnoses: Strain of muscle of torso Discharge ED - Sign-Out/Discharge Documenting (check all that apply): Patient Departure All imaging exams completed and their final reports reviewed: Yes - Discharge Plan Condition: Stable Disposition: HOME Patient Education Materials: Muscle Strain (ED) Referrals: Taj Vargas MD [Primary Care Provider] - Additional Instructions: 1. take tylneol 1000 mg every 8 hours for the next 4-5 days 2. Warm compresses to the back frequently and gentle stretching 3. Lift cautiously. 4. We will call if the radiologist finds anything you manuela to be aware of 5. We also ran your urine and sent it for culture, if you need to be treated we will call you and place you on an appropriate medication. 6. if symptoms worsen, follow up with your doctor or return. - Billing Disposition and Condition Condition: STABLE Disposition: Home
--- NOTE | 2019-07-08 07:46 | UC ---
- Progress Note Progress Note: Urine culture from June 26, 2019 comes back as strep group B 10-25,000. Patient was not placed on an antibiotic at the time. Nursing to call patient inform him of the results and let them know I have called in a prescription for Keflex to treat the UTI. Course/Dx - Diagnoses Provider Diagnoses: Strain of muscle of torso Discharge ED - Sign-Out/Discharge Documenting (check all that apply): Patient Departure All imaging exams completed and their final reports reviewed: Yes - Discharge Plan Condition: Stable Disposition: HOME Prescriptions: Cephalexin CAP* [Keflex CAP*] 500 mg PO BID #14 cap Patient Education Materials: Muscle Strain (ED) Referrals: Taj Vargas MD [Primary Care Provider] - Additional Instructions: 1. take tylneol 1000 mg every 8 hours for the next 4-5 days 2. Warm compresses to the back frequently and gentle stretching 3. Lift cautiously. 4. We will call if the radiologist finds anything you manuela to be aware of 5. We also ran your urine and sent it for culture, if you need to be treated we will call you and place you on an appropriate medication. 6. if symptoms worsen, follow up with your doctor or return. - Billing Disposition and Condition Condition: STABLE Disposition: Home
== END 2019-07-05 20:52 | disposition home or self-care (01) ==
LOC: UCCORT 19:30
DX: T14.8XXA Other injury of unspecified body region, initial encounter (principal); Z88.2 Allergy status to sulfonamides; Z88.5 Allergy status to narcotic agent; Z87.891 Personal history of nicotine dependence; X50.9XXA Other and unspecified overexertion or strenuous movements or postures, initial encounter; Y92.9 Unspecified place or not applicable
CPT/HCPCS: 81003; 87077; 87086; 99211; G0463